=== PATIENT | male | born 1955 | race Caucasian/White ===

== ENCOUNTER 2017-03-13 18:49 | Emergency (ER) | payer OTHER ==
[~2017-03-13] VITALS: Ht 182.9 cm; Wt 100.6 kg
[2017-03-13 18:53] VITALS: TEMP 36.3; Ht 182.9 cm; Wt 100.6 kg
[2017-03-13] MEDS ORDERED: SODIUM CHLORIDE 0.9% 1000ML 1,000 ML IV STA (19:13)
[2017-03-13] MEDS ORDERED: ACETAMINOPHEN IV 100 ML IV STA (19:17)
[2017-03-13 19:31] VITALS: O2SAT 96
[2017-03-13 19:41] LABS: BASO % 0.2 %; BASO ABS # 0.02 K/uL (0-0.2); EOS % 0.9 %; EOS ABS # 0.11 K/uL (0-0.5); HEMATOCRIT 42.3 % (42-52); HEMOGLOBIN 14.1 g/dL (14.0-18.0); IG# 0.03 K/uL (0.00-0.02); LYMPH % 22.3 %; LYMPH ABS # 2.86 K/uL (1.2-3.4); MEAN CELL VOLUME 83.4 fL (80-100); MEAN CORPUSCULAR HEMOGLOBIN 27.8 pg (25-34); MEAN CORPUSCULAR HGB CONC 33.3 g/dl (32-36); MEAN PLATELET VOLUME 11.6 fL (7.4-10.4); MONO % 7.6 %; MONO ABS # 0.97 K/uL (0.11-0.59); NEUT % 68.8 %; NEUT ABS # 8.84 K/uL (1.4-6.5); PLATELET COUNT 202 K/uL (130-400); RED CELL DISTRIBUTION WIDTH CV 16.2 % (11.5-14.5); RED CELL DISTRIBUTION WIDTH SD 48.8 fL (36.4-46.3); WHITE BLOOD COUNT 12.83 K/uL (4.8-10.8)
[2017-03-13] MEDS ORDERED: OPTIRAY 320 IV PRN (19:45)
[2017-03-13 19:51] LABS: ISTAT CREATININE 0.9 mg/dl (0.6-1.3); ISTAT IONIZED CALCIUM 1.23 mmol/l (1.12-1.32); ISTAT POTASSIUM 3.8 mEq/L (3.3-5.0)
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
[2017-03-13 20:02] LABS: ALBUMIN 3.9 gm/dl (3.4-5.0); ALT/SGPT 27 U/L (12-78); BLOOD UREA NITROGEN 13 mg/dl (7-18); CALCIUM 9.3 mg/dl (8.5-10.1); CARBON DIOXIDE 24 mmol/L (21-32); CREATININE 0.83 mg/dl (0.60-1.40); GLUCOSE 102 mg/dl (70-99); POTASSIUM 3.8 mmol/L (3.5-5.1); SODIUM 140 mmol/L (136-145)
[2017-03-13 20:07] LABS: ALKALINE PHOSPHATASE 71 U/L (45-117); AST/SGOT 20 U/L (15-37); TOTAL PROTEIN 7.1 gm/dl (6.4-8.2)
--- NOTE | 2017-03-13 20:14 | DIAGNOSTIC IMAGING REPORT ---
HEAD WITHOUT CONTRAST (CT) CT DOSE: 1861.95 mGy.cm HISTORY: Trauma EVALUATE FOR TRAUMA/INJURY TECHNIQUE: Multiaxial CT images of the head were performed without the use of intravenous contrast. A dose lowering technique was utilized adhering to the principles of ALARA. Comparison: None. Findings: The paranasal sinuses and mastoid air cells are clear. The calvarium and skull base are intact. The ventricles and sulci are within normal limits. There is no mass, hematoma, midline shift, or acute infarct. Impression: No acute intracranial abnormality. The above report was generated using voice recognition software. It may contain grammatical, syntax or spelling errors. Electronically signed by: Marshall Greenwood M.D. 03/13/2017 8:13 PM Dictated Date/Time: 03/13/2017 8:12 PM
--- NOTE | 2017-03-13 20:17 | DIAGNOSTIC IMAGING REPORT ---
CERVICAL SPINE W/O CT DOSE: HISTORY: Trauma. Pain. EVALUATE FOR TRAUMA/INJURY TECHNIQUE: Multiaxial CT images of the cervical spine were performed and reformatted in the sagittal and coronal plane without the use of contrast. A dose lowering technique was utilized adhering to the principles of ALARA. COMPARISON: None. FINDINGS: No fractures. No subluxation. Prevertebral soft tissues and the C1-C2 interval are intact. No pneumothorax. Degenerative disc changes throughout considered moderate IMPRESSION: Degenerative change. No acute process. The above report was generated using voice recognition software. It may contain grammatical, syntax or spelling errors. Electronically signed by: Marshall Greenwood M.D. 03/13/2017 8:16 PM Dictated Date/Time: 03/13/2017 8:14 PM
--- NOTE | 2017-03-13 20:22 | DIAGNOSTIC IMAGING REPORT ---
(CHEST) THORAX WITH CT DOSE: HISTORY: Pain Trauma TECHNIQUE: Multiaxial CT images of the chest were performed following the intravenous administration of contrast. A dose lowering technique was utilized adhering to the principles of ALARA. COMPARISON: None. FINDINGS: The lungs are clear. The mediastinal vascular structures are within normal limits. No mediastinal or hilar lymphadenopathy. No pleural effusion or pneumothorax. Limited views of the upper abdomen demonstrate a normal liver and spleen. IMPRESSION: No significant abnormality identified within the chest. The above report was generated using voice recognition software. It may contain grammatical, syntax or spelling errors. Electronically signed by: Marshall Greenwood M.D. 03/13/2017 8:20 PM Dictated Date/Time: 03/13/2017 8:17 PM
[2017-03-13] MEDS ORDERED: ACET-1256 PO (20:25)
[2017-03-13] MEDS ORDERED: ASPI325T39 PO (20:25)
--- NOTE | 2017-03-13 20:44 | DIAGNOSTIC IMAGING REPORT ---
L CLAVICLE CLINICAL HISTORY: trauma pain COMPARISON: None. DISCUSSION: The bones and joint spaces appear intact. There is no evidence of fracture, dislocation or bony disease. There is no evidence for soft tissue swelling. IMPRESSION: Negative study. The above report was generated using voice recognition software. It may contain grammatical, syntax or spelling errors. Electronically signed by: Marshall Greenwood M.D. 03/13/2017 8:43 PM Dictated Date/Time: 03/13/2017 8:43 PM
--- NOTE | 2017-03-13 20:45 | DIAGNOSTIC IMAGING REPORT ---
L SHOULDER MIN 2 VIEWS ROUTINE CLINICAL HISTORY: trauma pain COMPARISON: None. DISCUSSION: The bones and joint spaces appear intact. There is no evidence of fracture, dislocation or bony disease. There is no evidence for soft tissue swelling. Mild degenerative change. IMPRESSION: No acute process. Mild degenerative change. The above report was generated using voice recognition software. It may contain grammatical, syntax or spelling errors. Electronically signed by: Marshall Greenwood M.D. 03/13/2017 8:44 PM Dictated Date/Time: 03/13/2017 8:43 PM
[2017-03-13 21:52] VITALS: BP 138/70; PULSE 82; O2SAT 98
== END 2017-03-13 21:53 | disposition home or self-care (01) ==
LOC: C.EDB 18:50 → C.EDD 21:53
DX: S40.012A Contusion of left shoulder, initial encounter (principal); S06.0X0A Concussion without loss of consciousness, initial encounter; V64.5XXA Driver of heavy transport vehicle injured in collision with heavy transport vehicle or bus in traffic accident, initial encounter; Y93.89 Activity, other specified; Y99.8 Other external cause status; R06.02 Shortness of breath; Z79.82 Long term (current) use of aspirin

== ENCOUNTER 2022-06-21 14:27 | Observation (INO) ==
--- NOTE | 2022-06-21 14:43 | ED Triage Note ---
Date of Service June 21, 2022 History of Present Illness This patient was briefly evaluated while in triage. An abbreviated physical exam was performed. This patient is a 67-year-old Male who presents to the ED for evaluation of abdominal pain. He notes it is in his "stomach" and back. Mostly L side of back and L side of abd region. This has been ongoing x 1 month. He has associated constipation. Bladder removed earlier this year secondary to cancer. Physical Exam GENERAL: 67 year old male. In no acute distress. SKIN: No lesions or rashes. HEART: Regular rate and rhythm. LUNGS: Clear to auscultation. ABDOMEN: Bowel sounds normoactive. No guarding or rigidity. PSYCH: Patient is pleasant and answers all questions appropriately. Initial orders for labs and / or imaging were placed and patient was placed in the waiting area until a bed is available. Please see further documentation for the full ED course.
[2022-06-21] MEDS ORDERED: SODIUM CHLORIDE 0.9% 1000ML 1,000 ML IV ONE (15:10)
[2022-06-21 15:35] LABS: Basophils # (auto) 0.03 K/uL (0-0.2); Basophils % (auto) 0.3 %; Eosinophils # (auto) 0.02 K/uL (0-0.50); Eosinophils % (auto) 0.2 %; Hematocrit (blood only) 27.1 % (42.0-52.0); Immature Granulocytes # (auto) 0.05 K/uL (0.01-0.20); Immature Granulocytes % (auto) 0.4 %; Mean Corpuscular Hemoglobin 26.9 pg (25.0-34.0); Mean Corpuscular Hgb Conc 33.2 g/dL (32.0-36.0); Mean Corpuscular Volume 81.1 fL (80.0-100.0); Mean Platelet Volume 10.4 fL (9.4-12.4); Monocytes # (auto) 1.39 K/uL (0.11-0.59); Monocytes % (auto) 12.2 %; Neutrophils # (auto) 8.31 K/uL (1.40-6.50); Neutrophils % (auto) 72.9 %; Platelet Count 250 K/uL (130-400); RDW Coefficient of Variation 14.6 % (11.5-14.5); RDW Standard Deviation 43.6 fL (36.4-46.3); Red Blood Count 3.34 M/uL (4.70-6.10)
[2022-06-21 15:53] LABS: Albumin Globulin Ratio 0.9 (0.9-2); Albumin Level 3.6 gm/dl (3.4-5.0); BUN Creatinine Ratio 8.8 (10-20); Bilirubin,Total 0.4 mg/dl (0.2-1.0); Calcium 9.8 mg/dl (8.6-10.3); Creatinine Clr Calc Pharmacy 38.5 ml/min; Est GFR (African American) 32.9 ml/min; Est GFR (Non-African American) 28.4 ml/min; Globulin 4.2 gm/dl (2.5-4.0); Potassium 3.8 mmol/L (3.5-5.1); Total Protein 7.8 gm/dl (6.0-8.3)
[2022-06-21 16:06] LABS: Partial Thromboplastin Ratio 1.1; Partial Thromboplastin Time 31.2 Seconds (21.0-31.0)
--- NOTE | 2022-06-21 16:49 | Emergency Department Note ---
Impression & Plan Abdominal pain, Reactive lymphadenopathy, Acute kidney injury ED Provider Note INFORMANT: Patient ED PROVIDER(S): Wilfred Tam DO CHIEF COMPLAINT: Abdominal pain PLAN: Disposition: Admission Outpatient prescription management: [none] Discussion with: I spoke with the hospitalist, who will see the patient for admission/observation and further evaluation and consultation. MEDICAL DECISION MAKING: This is a 67-year-old male who presents to the ED with a chief complaint of abdominal pain that radiates into his back. The patient states that he has had it for about a month. He states that it seems to be worse if he pushes on his belly that increases back pain. He had been initially using Tylenol and Motrin but that does not seem to be helping much anymore. The patient states that he does not move his bowels very well. He had bladder cancer with bladder removal in March at [facility]. He has a ureterostomy. Denies any nausea or vomiting. He reports a decreased appetite. He states oral intake increases pain. He has been using a stool softener. The patient has some left lower quadrant abdominal tenderness on my exam. His exam was otherwise unremarkable. CBC reveals hemoglobin of 9. No significant leukocytosis this is similar to her previous test this month but down from other months. His creatinine is elevated 2.28. This is new compared to earlier this month when it was 1.25. Lipase was negative for pancreatitis. CT scan suggest dilatation of the left ureter with urothelial thickening concerning for infectious process. There is also some retroperitoneal stranding extending into the left hemipelvis which is concerning for infection. Also multiple enlarged retroperitoneal lymph nodes which could be reactive or metastatic. Because the patient's symptoms, the patient will be seen by the hospitalist for further evaluation and care. He was empirically treated with IV Zosyn. He was also given some IV fluids. Triage Nursing notes reviewed. Vital Signs: reviewed Prior /Outside records reviewed: Urothelial carcinoma of the bladder noted in the general surgery note from 12/05/2021. Differential diagnosis: Differential considered: pancreatitis, hepatitis, acute cholecystitis, AAA, UTI, pyelonephritis, kidney stones, appendicitis, diverticulitis, shingles, bowel obstruction, mesenteric ischemia, intussusception,hernia, testicular torsion Diagnostics, as interpreted by me: 12 lead ECG: none Cardiac Monitoring ordered: none Medical decision rules: none Imaging studies: CT scan abdomen pelvis: No obstruction Procedures: none. Critical care: none. HPI: See MDM above. PAST MEDICAL HISTORY: See Below PAST SURGICAL HISTORY: See Below SOCIAL HISTORY: See Below HOME MEDICATIONS: See Below ALLERGIES: See Below VITALS: [See Below] PHYSICAL EXAMINATION: See MDM for positive findings otherwise unremarkable. CONSTITUTIONAL/VITAL SIGNS: Reviewed GENERAL:done as appropriate INTEGUMENTARY: done as appropriate HEAD: done as appropriate EYES: done as appropriate RESPIRATORY: done as appropriate CARDIOVASCULAR:done as appropriate GI/ABDOMEN:done as appropriate EXTREMITIES: done as appropriate NEUROLOGICAL: done as appropriate PSYCHIATRIC:done as appropriate MUSCULOSKELETAL:done as appropriate TRIAGE NURSING DOCUMENTATION REVIEWED. Past Med/Surg History Medical History Hx of bladder cancer 11/2021 Hypertension no meds Left lumbar radiculitis Lumbar spinal stenosis mod-severe worst at L2-3 with severe left NFS Surgical History History of ankle surgery "Left" History of arthroscopy of left shoulder History of shoulder surgery Right x1 Left x3 History of tooth extraction Hx of vasectomy Port-A-Cath in place (12/14/21) Insertion Access Port with Fluoroscopy(Not Applicable) - Keo Peck DO, FACS S/P TURP 11-01-21 Family History Sister Breast cancer Father Hypertension Grandmother Diabetes Aunt Stroke Social History Smoking Status: Never smoker Second Hand Exposure: No; Do You Dip or Chew Tobacco: Yes; Tobacco Cessation Education Requested by Patient: No Hx Alcohol Use: No Hx Substance Use: No Preferred Language: Kazakh Communication Ability: Effective Civil Structural Designer Required: No Beliefs That Will Affect Care: None marital status: / Current Living Situation: Alone current occupational status: retired Other Information That Helps Us Care for You: No Feels Safe at Home: Yes Safety Concerns: Feels Safe At This Time Assistive Devices: None Allergies Allergies Allergy/AdvReac Type Severity Reaction Status Date / Time No Known Allergies Allergy Verified 06/21/22 17:42 Home Meds Home Medications Medication Instructions Recorded Confirmed acetaminophen 500 mg tablet 1,000 mg PO QID PRN Pain 06/21/22 06/21/22 (Tylenol Extra Strength) aspirin 325 mg tablet 325 - 650 mg PO DAILY 06/21/22 06/21/22 cyanocobalamin (vitamin B-12) 1,000 mcg PO DAILY 06/21/22 06/21/22 1,000 mcg tablet (Vitamin B-12) docusate sodium 100 mg tablet 100 mg PO QID PRN Constipation 06/21/22 06/21/22 (Stool Softener) lisinopril 10 mg tablet 10 mg PO DAILY 06/21/22 06/21/22 Results & Data (ED) Vital Signs Vital Signs - 24 hr 06/21/22 14:39 06/21/22 15:23 06/21/22 15:19 Temperature 36.9 C Temperature Source Temporal Artery Scan Pulse Rate 113 H 96 H 91 H Pulse Rhythm Regular Pulse Strength Normal Respiratory Rate 20 22 Respiratory Effort / Characteristics Non-Labored Spontaneous Respiratory Depth Normal Respiratory Pattern Regular Blood Pressure 99/67 L Blood Pressure Mean 77 Blood Pressure Position Sitting Pulse Oximetry 99 98 Oxygen Delivery Method Room Air Sepsis Recent Fever Within 48 Hours No Sepsis New/Unexplained Change in Mental Status No Sepsis Action Taken by Nursing Adv Provider Notified 06/21/22 16:00 06/21/22 16:44 06/21/22 16:44 Temperature Temperature Source Pulse Rate 96 H 98 H Pulse Rhythm Pulse Strength Respiratory Rate 21 22 Respiratory Effort / Characteristics Respiratory Depth Respiratory Pattern Blood Pressure 100/60 Blood Pressure Mean 73 Blood Pressure Position Pulse Oximetry 97 94 Oxygen Delivery Method Sepsis Recent Fever Within 48 Hours Sepsis New/Unexplained Change in Mental Status Sepsis Action Taken by Nursing 06/21/22 19:18 Temperature Temperature Source Pulse Rate 91 H Pulse Rhythm Pulse Strength Respiratory Rate Respiratory Effort / Characteristics Respiratory Depth Respiratory Pattern Blood Pressure Blood Pressure Mean Blood Pressure Position Pulse Oximetry Oxygen Delivery Method Sepsis Recent Fever Within 48 Hours Sepsis New/Unexplained Change in Mental Status Sepsis Action Taken by Nursing Laboratory Data 06/21/22 15:16 06/21/22 15:16 Lab Results 06/21/22 06/21/22 06/21/22 Range/Units 15:16 15:16 15:16 WBC 11.40 H (4.8-10.8) K/ul RBC 3.34 L (4.70-6.10) M/uL Hgb 9.0 L (14.0-18.0) g/dl Hct 27.1 L (42.0-52.0) % MCV 81.1 (80.0-100.0) fL MCH 26.9 (25.0-34.0) pg MCHC 33.2 (32.0-36.0) g/dL RDW Std Deviation 43.6 (36.4-46.3) fL RDW Coeff of Reina 14.6 H (11.5-14.5) % Plt Count 250 (130-400) K/uL MPV 10.4 (9.4-12.4) fL Immature Gran % (Auto) 0.4 % Neut % (Auto) 72.9 % Lymph % (Auto) 14.0 % [place] % (Auto) 12.2 % Eos % (Auto) 0.2 % Baso % (Auto) 0.3 % Neut # (Auto) 8.31 H (1.40-6.50) K/uL Lymph # (Auto) 1.60 (1.2-3.4) K/uL [place] # (Auto) 1.39 H (0.11-0.59) K/uL Eos # (Auto) 0.02 (0-0.50) K/uL Baso # (Auto) 0.03 (0-0.2) K/uL Immature Gran # (Auto) 0.05 (0.01-0.20) K/uL PT 11.0 (9.0-12.0) Seconds INR 1.0 (0.9-1.1) APTT 31.2 H (21.0-31.0) Seconds PTT Ratio 1.1 Sodium 131 L (136-145) mmol/L Potassium 3.8 (3.5-5.1) mmol/L Chloride 99 (98-107) mmol/L Carbon Dioxide 19 L (21-32) mmol/L Anion Gap 13 H (3-11) BUN 20 (6-23) mg/dl Creatinine 2.28 H (0.6-1.4) mg/dl Est Cr Clr Drug Dosing 38.5 ml/min Est GFR ( Amer) 32.9 ml/min Est GFR (Non-Af Amer) 28.4 ml/min BUN/Creatinine Ratio 8.8 L (10-20) Glucose 100 H (70-99(Fasting)) mg/dl Lactate (0.4-2.0) mmol/L Calcium 9.8 (8.6-10.3) mg/dl Total Bilirubin 0.4 (0.2-1.0) mg/dl AST 21 (13-39) U/L ALT 16 (7-52) U/L Alkaline Phosphatase 84 (34-104) U/L Total Protein 7.8 (6.0-8.3) gm/dl Albumin 3.6 (3.4-5.0) gm/dl Globulin 4.2 H (2.5-4.0) gm/dl Albumin/Globulin Ratio 0.9 (0.9-2) Lipase 21 (11-82) U/L Procalcitonin (0-0.5) ng/ml 06/21/22 06/21/22 Range/Units 15:16 15:16 WBC (4.8-10.8) K/ul RBC (4.70-6.10) M/uL Hgb (14.0-18.0) g/dl Hct (42.0-52.0) % MCV (80.0-100.0) fL MCH (25.0-34.0) pg MCHC (32.0-36.0) g/dL RDW Std Deviation (36.4-46.3) fL RDW Coeff of Reina (11.5-14.5) % Plt Count (130-400) K/uL MPV (9.4-12.4) fL Immature Gran % (Auto) % Neut % (Auto) % Lymph % (Auto) % [place] % (Auto) % Eos % (Auto) % Baso % (Auto) % Neut # (Auto) (1.40-6.50) K/uL Lymph # (Auto) (1.2-3.4) K/uL [place] # (Auto) (0.11-0.59) K/uL Eos # (Auto) (0-0.50) K/uL Baso # (Auto) (0-0.2) K/uL Immature Gran # (Auto) (0.01-0.20) K/uL PT (9.0-12.0) Seconds INR (0.9-1.1) APTT (21.0-31.0) Seconds PTT Ratio Sodium (136-145) mmol/L Potassium (3.5-5.1) mmol/L Chloride (98-107) mmol/L Carbon Dioxide (21-32) mmol/L Anion Gap (3-11) BUN (6-23) mg/dl Creatinine (0.6-1.4) mg/dl Est Cr Clr Drug Dosing ml/min Est GFR ( Amer) ml/min Est GFR (Non-Af Amer) ml/min BUN/Creatinine Ratio (10-20) Glucose (70-99(Fasting)) mg/dl Lactate 1.8 (0.4-2.0) mmol/L Calcium (8.6-10.3) mg/dl Total Bilirubin (0.2-1.0) mg/dl AST (13-39) U/L ALT (7-52) U/L Alkaline Phosphatase (34-104) U/L Total Protein (6.0-8.3) gm/dl Albumin (3.4-5.0) gm/dl Globulin (2.5-4.0) gm/dl Albumin/Globulin Ratio (0.9-2) Lipase (11-82) U/L Procalcitonin 0.33 (0-0.5) ng/ml Administered Medications Acetaminophen (Acetaminophen 325 Mg Tab) 650 mg PO Q4H PRN PRN Reason: Pain or Fever Stop: 07/21/22 21:49 Last Admin: 06/21/22 22:40 Dose: 650 mg Documented By: VIVIANA Docusate Sodium (Docusate Sodium 100 Mg Cap) 100 mg PO QID PRN PRN Reason: Constipation Stop: 07/21/22 22:08 Last Admin: 06/21/22 22:40 Dose: 100 mg Documented By: VIVIANA Potassium Chloride/Sodium Chloride (Normal Saline W/20 Meq Kcl) 20 meq in 1,000 mls @ 120 mls/hr IV .Q8H20M CELSO Stop: 06/22/22 06:49 Last Admin: 06/21/22 22:40 Dose: 120 mls/hr Documented By: VIVIANA Piperacillin Sod/Tazobactam (Sod 4.5 gm/ Dextrose) 120 mls @ 30 mls/hr IV Q8H CELSO; Protocol Stop: 07/02/22 00:00 Last Admin: 06/21/22 22:40 Dose: 30 mls/hr Documented By: HFS Discontinued Medications Sodium Chloride (Nss 1000ml) 1,000 mls @ 999 mls/hr IV .Q1H1M ONE Stop: 06/21/22 16:10 Last Infusion: 06/21/22 16:11 Dose: 0 mls/hr Documented By: Admin: 06/21/22 15:16 Dose: 999 mls/hr Documented By: ARS Piperacillin Sod/Tazobactam Sod (Zosyn) 4.5 gm in 120 mls @ 240 mls/hr IV NOW ONE Stop: 06/21/22 18:55 Last Infusion: 06/21/22 19:05 Dose: 0 mls/hr Documented By: Admin: 06/21/22 18:38 Dose: 240 mls/hr Documented By: ARS Imaging Data Radiologist's Impression: Abdomen/Pelvis CT 06/21/22 16:22 CT OF THE ABDOMEN AND PELVIS WITHOUT CONTRAST CLINICAL HISTORY: Left lower quadrant abdominal pain. COMPARISON STUDY: CT of the abdomen and pelvis October 20, 2021. TECHNIQUE: Axial images of the abdomen and pelvis were obtained without IV contrast. Images were reviewed in the axial, sagittal, and coronal planes. Automated exposure control was utilized for the study. A dose lowering technique was utilized adhering to the principles of ALARA. FINDINGS: Lung bases are unremarkable. No pneumatosis, free air or portal venous gas is present. Evaluation of the abdomen and pelvis is suboptimal. There are postoperative findings consistent with interval cystectomy with right lower quadrant urostomy and lymph node dissection. Right hydronephrosis has resolved. There is mild dilatation of the left ureter with significant urothelial thickening of the left ureter. There is moderate adjacent retroperitoneal stranding that extends into the left hemipelvis. A few small pelvic fluid collections measure up to 2.1 cm. These may reflect lymphoceles. There are several enlarged retroperitoneal lymph nodes. Left para-aortic lymph node on image 201 of 511 measures 2 x 1.5 cm. Additional left para-aortic lymph node on axial image 246 measures 2.3 x 1.5 cm. There is no evidence for a bowel obstruct ion. No evidence for acute appendicitis. Unenhanced images of the liver, spleen, adrenal glands and pancreas are unremarkable. There is no biliary or pancreatic ductal dilatation. There are no suspicious osseous lesions. No bowel wall thickening is evident on unenhanced exam. IMPRESSION: 1. Interval cystectomy with right lower quadrant urostomy. Mild dilatation of the left ureter with urothelial thickening of the left ureter. This favors an i nfectious process. Moderate adjacent retroperitoneal stranding extending into the left hemipelvis. This retroperitoneal stranding is nonspecific but likely infectious. No drainable fluid collection. 2. Multiple enlarged retroperitoneal lymph nodes, as described above. These may be reactive given the suspected infectious process. However, metastatic lymphadenopathy could appear similar. Therefore, short-term follow-up CT in one month is recommended to ensure resolution. 3. No bowel obstruction. No bowel wall thickening. 4. No urinary calculi. ACT 112: Positive. There are findings on this exam that require communication between the performing entity and the patient following Patient Test Result Information Act ([place] Act 112) guidelines. Electronically signed by: Aubrey Pavon M.D. 06/21/2022 5:07 PM Discharge Plan Visit Data Chief Complaint: Abdominal Pain Stated Complaint: REF BY DOC,ABD/BACK PAIN,HX BLADDER CANCER/SURGERY ED Provider: Wilfred Tam Discharge Problem: Abdominal pain, Reactive lymphadenopathy, Acute kidney injury Patient Disposition: Admitted As Inpatient
--- NOTE | 2022-06-21 17:09 | CT Scan Report ---
CT OF THE ABDOMEN AND PELVIS WITHOUT CONTRAST CLINICAL HISTORY: Left lower quadrant abdominal pain. COMPARISON STUDY: CT of the abdomen and pelvis October 20, 2021. TECHNIQUE: Axial images of the abdomen and pelvis were obtained without IV contrast. Images were revi ewed in the axial, sagittal, and coronal planes. Automated exposure control was utilized for the vishal dy. A dose lowering technique was utilized adhering to the principles of ALARA. FINDINGS: Lung bases are unremarkable. No pneumatosis, free air or portal venous gas is present. Eval uation of the abdomen and pelvis is suboptimal. There are postoperative findings consistent with inte rval cystectomy with right lower quadrant urostomy and lymph node dissection. Right hydronephrosis obrien s resolved. There is mild dilatation of the left ureter with significant urothelial thickening of the left ureter. There is moderate adjacent retroperitoneal stranding that extends into the left hemipel vis. A few small pelvic fluid collections measure up to 2.1 cm. These may reflect lymphoceles. There are several enlarged retroperitoneal lymph nodes. Left para-aortic lymph node on image 201 of 511 airam sures 2 x 1.5 cm. Additional left para-aortic lymph node on axial image 246 measures 2.3 x 1.5 cm. Th ere is no evidence for a bowel obstruction. No evidence for acute appendicitis. Unenhanced images of the liver, spleen, adrenal glands and pancreas are unremarkable. There is no biliary or pancreatic du ctal dilatation. There are no suspicious osseous lesions. No bowel wall thickening is evident on unen hanced exam. IMPRESSION: 1. Interval cystectomy with right lower quadrant urostomy. Mild dilatation of the left ureter with ur othelial thickening of the left ureter. This favors an infectious process. Moderate adjacent retroper itoneal stranding extending into the left hemipelvis. This retroperitoneal stranding is nonspecific but likely infectious. No drainable fluid collection. 2. Multiple enlarged retroperitoneal lymph nodes, as described above. These may be reactive given the suspected infectious process. However, metastatic lymphadenopathy could appear similar. Therefore, s hort-term follow-up CT in one month is recommended to ensure resolution. 3. No bowel obstruction. No bowel wall thickening. 4. No urinary calculi. ACT 112: Positive. There are findings on this exam that require communication between the performing entity and the patient following Patient Test Result Information Act ([place] Act 112) guidelines. Electronically signed by: Aubrey Pavon M.D. 06/21/2022 5:07 PM
[2022-06-21] MEDS ORDERED: PIPERACILLIN/TAZOBACTAM 4.5 GM/120 ML BAG IV ONE (18:26)
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
--- NOTE | 2022-06-21 20:51 | Ultrasound Report ---
RIGHT LOWER EXTREMITY VENOUS DOPPLER CLINICAL HISTORY: hx RLE dvt, stopped anticoag after 6 weeks. COMPARISON STUDY: None available at time of interpretation. TECHNIQUE: Sonography of the deep venous system of the right lower extremity was performed. Compress ion and augmentation were evaluated. FINDINGS: The right common femoral, superficial femoral and popliteal veins were compressible. Note is made of nonocclusive deep venous thrombus within one of 2 paired right posterior tibial veins. IMPRESSION: Nonocclusive deep venous thrombus within one of 2 paired right posterior tibial veins. No above the knee thrombus. ACT 112: Negative or not required by law. Electronically signed by: Aubrey Pavon M.D. 06/21/2022 8:49 PM
[2022-06-21] MEDS ORDERED: Heparin IV Adult Wt-Based Standard *NO* Bolus Protocol IV SCH (21:58)
[2022-06-21] MEDS ORDERED: HEPARIN SOD 5,000 UNIT/0.5 ML VIAL SQ SCH (22:00)
[2022-06-21] MEDS ORDERED: NSS + 20MEQ KCL 20 MEQ/1,000 ML BAG IV SCH (22:30)
[2022-06-21] MEDS: PIPERACILLIN/TAZOBACTAM 4.5 GM in DEXTROSE 5% 100 ML IV SCH (22:40)
[2022-06-21] MEDS: DOCUSATE SODIUM 100 MG CAP PO PRN (22:40)
[2022-06-21] MEDS: ACETAMINOPHEN 325 MG TAB PO PRN (22:40)
[2022-06-21] MEDS ORDERED: GADOBUTROL 65ML VIAL IV ONE (22:48)
[2022-06-22] MEDS: HEPARIN SODIUM/DEXTROSE 25,000 UNITS/500 ML BAG IV SCH ×2 (00:05→14:34)
[2022-06-22] MEDS ORDERED: traMADol HCL 50 MG TABLET PO STA (00:25)
--- NOTE | 2022-06-22 00:52 | Magnetic Resonance Report ---
Exam(s): MRI L SPINE Without Contrast EXAM: MR Lumbar Spine Without Intravenous Contrast CLINICAL HISTORY: Reason for exam: Low back pain, ?L proximal weakness. TECHNIQUE: Magnetic resonance images of the lumbar spine without intravenous contrast in multiple planes. COMPARISON: Comparison made to prior MRI of the lumbar spine from March 23, 2017. FINDINGS: Vertebrae: There are 5 lumbar type vertebral bodies with a moderate dextroscoliosis and normal lumbar lordosis. There is normal vertebral body height and alignment. The bone marrow signal is heterogeneous with areas of focal fat or venous malformations. No acute fracture. There is narrowing of the entire lumbar spinal canal secondary to congenitally short pedicles. There is abnormal articulation of the right L5 transverse process and the sacrum forming a pseudoarthrosis with reactive bone changes. Spinal cord: The conus is normal size, shape and signal characteristics, terminating at T11-12. Soft tissues: Moderate atrophy of the iliopsoas, paraspinous interspinous musculature. The aorta and IVC flow voids are intact. The visualized kidneys are unremarkable. There is increased T2/STIR signal within the interspinous process at L1-2 through L5-S1. DISCS/SPINAL CANAL/NEURAL FORAMINA: L1-L2: Mild disc degeneration with annular disc bulge asymmetric to the right causing mild subarticular recess stenosis, or disc extending into the neural foramina without evidence of impingement or significant stenosis. There is mild facet arthropathy with mild synovitis. L2-L3: Moderate disc degeneration with loss of disc height, reactive endplate change, marginal osteophytosis and annular disc bulge asymmetric to the left causing a mild subarticular recess stenosis, with superimposed congenital short pedicles causing a mild spinal canal stenosis with thecal sac measuring 0.83 cm. There is disc and osteophyte extending to the neural foramina causing mild bilateral stenosis without evidence of neural impingement. There is mild joint arthropathy with mild synovitis. L3-L4: Moderate disc degeneration with loss of disc height, reactive endplate changes, marginal osteophytosis and annular disc bulge causing mild subarticular recess stenosis, with superimposed congenitally short pedicles causing a moderately severe spinal canal stenosis with thecal sac area measuring 0.65 cm. There is disc extending into the neuroforamina causing a mild right and moderate left stenosis with mild impingement of the left L3 nerve or tingling. There is mild facet arthropathy with mild synovitis. L4-L5: Moderate disc degeneration with loss of disc height, reactive endplate changes, marginal osteophytosis and a disc bulge asymmetric to the right causing mild subarticular recess stenosis, superimposed congenitally short pedicles causing a severe spinal canal stenosis with thecal sac measuring 0.42 cm. There is disc and osteophyte extend into the neuroforamina causing a mild right stenosis without evidence of neural impingement. There is mild facet arthropathy with mild synovitis. L5-S1: Moderate disc degeneration with loss of disc height, reactive endplate changes, marginal osteophytosis and in their disc bulge causing a mild subarticular recess stenosis, with disc and osteophyte extend to the neuroforamina causing a moderately severe right and moderate left stenosis with impingement of the L5 nerve root ganglia. There is mild facet arthropathy with mild synovitis. IMPRESSION: 1. Moderate disc degeneration at L2-3, L3-4, L4-5 and L5-S1 with mild disc degeneration at L1-2 with annular disc bulging causing a mild subarticular recess stenosis without evidence of neural impingement. 2. There is a severe spinal canal stenosis at L4-5, moderately severe stenosis at L3-4 and mild stenosis at L2-3 with a congenitally narrow spinal canal. 3. There is mild bilateral L2-3, mild right and moderate left L3-4, mild right L4-5, and moderately severe right and moderate left L5-S1 neuroforaminal stenosis with impingement of the left L3 and bilateral L5 nerve root ganglia. 4. There is mild facet arthropathy with mild synovitis. 5. Intraspinous bursitis at L1-2 through L5-S1. 6. 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 7. No evidence of fracture, infection, tumor or arachnoiditis. Electronically signed by: Lela Lopez MD 06/22/22 00:51 AM
[2022-06-22] MEDS: ACETAMINOPHEN 325 MG TAB PO PRN ×3 (04:42→20:01)
[2022-06-22 05:24] LABS: Appearance Urine Clear (Clear); Bacteria Urine Automated Negative (Negative); Bilirubin Urine Negative (Negative); Blood Urine Trace (Negative); Color Urine Yellow; Epithelial Cell Urine Auto >30 /lpf (0-5); Glucose Urine UA Negative (Negative); Ketones Urine Negative (Negative); Leukocyte Esterase Urine 1+ (Negative); Nitrite Urine Negative (Negative); Protein Urine 1+ (Negative); Specific Gravity Urine 1.006 (1.000-1.030); Urobilinogen Urine Negative (Negative)
[2022-06-22 06:40] LABS: Basophils # (auto) 0.04 K/uL (0-0.2); Basophils % (auto) 0.5 %; Eosinophils # (auto) 0.04 K/uL (0-0.50); Eosinophils % (auto) 0.5 %; Hematocrit (blood only) 23.6 % (42.0-52.0); Hemoglobin 7.7 g/dl (14.0-18.0); Immature Granulocytes # (auto) 0.04 K/uL (0.01-0.20); Immature Granulocytes % (auto) 0.5 %; Lymphocytes % (auto) 11.9 %; Mean Corpuscular Hemoglobin 26.8 pg (25.0-34.0); Mean Corpuscular Hgb Conc 32.6 g/dL (32.0-36.0); Mean Corpuscular Volume 82.2 fL (80.0-100.0); Mean Platelet Volume 10.5 fL (9.4-12.4); Monocytes # (auto) 1.14 K/uL (0.11-0.59); Monocytes % (auto) 13.6 %; Neutrophils # (auto) 6.13 K/uL (1.40-6.50); Platelet Count 188 K/uL (130-400); RDW Coefficient of Variation 14.6 % (11.5-14.5); RDW Standard Deviation 44.2 fL (36.4-46.3); Red Blood Count 2.87 M/uL (4.70-6.10); White Blood Count 8.39 K/ul (4.8-10.8)
[2022-06-22 06:46] LABS: BUN Creatinine Ratio 11.7 (10-20); Creatinine Clr Calc Pharmacy 45.8 ml/min; Est GFR (African American) 41.6 ml/min; Est GFR (Non-African American) 35.9 ml/min
[2022-06-22 06:54] LABS: Partial Thromboplastin Ratio 1.1; Partial Thromboplastin Time 31.3 Seconds (21.0-31.0)
[2022-06-22 07:02] LABS: RBC Morphology Unremarkable
[2022-06-22] MEDS ORDERED: HEPARIN SOD (PORCINE) 1000 UNIT/ML IV ONE (07:15)
[2022-06-22] MEDS: PIPERACILLIN/TAZOBACTAM 4.5 GM in DEXTROSE 5% 100 ML IV SCH ×2 (07:39→16:18)
[2022-06-22] MEDS: CYANOCOBALAMIN (B-12) 500 MCG TABLET PO SCH (07:42)
[2022-06-22] MEDS: HYDROCODONE/ACETAMINOPHEN 7.5/325MG TAB PO PRN (12:12)
[2022-06-22 13:39] LABS: Partial Thromboplastin Ratio 1.3; Partial Thromboplastin Time 35.4 Seconds (21.0-31.0)
[2022-06-22] MEDS: GABAPENTIN 100 MG CAP PO SCH ×2 (13:44→20:01)
[2022-06-22] MEDS ORDERED: HEPARIN IV BOLUS 3,000 UNITS in SYRINGE 0 ML IV ONE (14:45)
[2022-06-22] MEDS ORDERED: BACLOFEN 10 MG TAB PO PRN (15:38)
[2022-06-22] MEDS ORDERED: PANTOprazole 40 MG TAB PO STA (15:41)
--- NOTE | 2022-06-22 15:42 | Hospitalist Progress Note ---
Date of Service June 22, 2022 Assessment & Plan (1) UTI (urinary tract infection): Plan: suspected follow blood/urine cx's cont IV abx (2) KEV (acute kidney injury): Plan: 2nd to poor oral intake prior to admission he had also been taking copious amounts of motrin KEV improved overnight with IV fluids but not yet back to normal resume IV fluids repeat BMP am (3) Lumbar spinal stenosis: Plan: severe based on MRI lumbar spine he has had previous epidural steroid injections and had radiofrequency ablation by Dr Bruce, pain management, in 2019 he has stenosis at multiple levels but worst at L4-L5 he appears to have nerve impingement on the exiting left L3 nerve root, and b/l L5 nerve roots I suspect his current lumbar radiculopathy is from the left L3 nerve impingement start dexamethasone 4mg IV BID start gabapentin 100mg TID start dilaudid 0.25mg IV q6h prn for pain not relieved by norco baclofen prn obtained left hip x-rays to ensure intrinsic hip disease is not contributing to his pain will likely consult with Dr Parson, ortho-spine (4) Hypertension: Plan: lisinopril on hold due to KEV BPs acceptable without it cont to hold trend BPs (5) History of DVT (deep vein thrombosis): Plan: initial dx 03/2022 at [facility] by report took Eliquis for 4-6 weeks then he discontinued it due to cost RLE doppler here at [facility] - :Nonocclusive deep venous thrombus within one of 2 paired right posterior tibial veins. No above the knee thrombus." given recent surgery, bladder cancer, incomplete Rx of the above DVT, and now poor mobility due to his severe lumbar spine pain he is at risk of recurrent DVT and extension/propagation thus, continue heparin infusion start coumadin 5mg daily (6) Lumbar radicular pain: Plan: see above under "stenosis" (7) Constipation: Plan: severe abd x-rays obtained - mild ileus noted add miralax BID add senna (8) Hx of bladder cancer: Plan: s/p cystectomy at [facility] 03/2022 now with urostomy (9) Right leg DVT: Plan: see #5 above (10) 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 await urine cx see #1 above Plan add PPI in the event he has mild gastritis from recent motrin use (which was being taken for his back) daughter extensively updated at bedside labs in am Admission and Anticipated Discharge Date Admission Date: June 21, 2022 Subjective patient details the history of his back states that he had radiofrequency ablation of several lumbar nerves a few years ago by [facility] Pain management did have significant pain relief with such of his radicular back pain about 6 weeks he developed insidious back pain - lower left back gradually worsened and then he ultimately developed radicular pain of the left leg pain wraps around from the left low back to the anterior thigh the pain - which is a throbbing, severe, shooting pain - radiates from the lateral proximal thigh to the medial distal thigh the pain does not travel below the knee he has a hard time picking up the right hip due to this pain denies right leg pain he also complains of severe constipation yesterday had "rock hard" BM yesterday with straining has been present like this for some time patient reports that he had stopped his Eliquis for his RLE DVT at about the 6 week sarabjit because of cost it would have cost him "hundreds of dollars" he does not have prescription coverage with his insurance overnight - tele wnl Review of Systems Review of Systems: gen - no fevers; eating ok cv - no chest pain pulm - no dyspnea GI - lower abdominal discomfort, hurts with eating at times; he often will not eat much because of his abdominal pain; no nausea/emesis - urostomy draining copious urine Physical Exam Physical Exam: gen - NAD, a little agitated at times, but awake/alert mouth - MMM neck - no JVD heart - RRR, s1 s2, no murmur lungs - CTA b/l abd - soft NT ND BS+; urostomy bag in place with slightly concentrated yellow urine back - no tenderness to palpation along c-spine or t-spine; he has pain over the SI joint on left to palpation ext - no edema, pulses 2+ b/l neuro - negative straight leg raise test b/l; left hip flexion 4/5; right hip flexion 5/5; right ankle dorsiflexion/plantarflexion 5/5; left ankle strength 5/5; right knee extension 5/5; left knee extension 4-5/5; sensation intact to light touch all dermatomes of b/l legs musculo - left hip with full passive ROM without any pain Results & Data Results & Data Vital Signs (Past 12 Hours) Vital Signs Temp Pulse Pulse Resp BP Pulse Ox O2 Del Method 06/22/22 11:18 36.8 C 92 H 19 122/75 97 Room Air 06/22/22 08:09 Room Air 06/22/22 07:31 36.7 C 83 18 102/62 96 Room Air 06/22/22 07:23 84 Laboratory Results Laboratory Results - last 24 hr 06/22/22 06/22/22 06/22/22 06:09 06:09 06:09 WBC 8.39 RBC 2.87 L Hgb 7.7 L Hct 23.6 L MCV 82.2 MCH 26.8 MCHC 32.6 RDW Std Deviation 44.2 RDW Coeff of Reina 14.6 H Plt Count 188 MPV 10.5 Immature Gran % (Auto) 0.5 Neut % (Auto) 73.0 Lymph % (Auto) 11.9 Graham % (Auto) 13.6 Eos % (Auto) 0.5 Baso % (Auto) 0.5 Neut # (Auto) 6.13 Lymph # (Auto) 1.00 L Graham # (Auto) 1.14 H Eos # (Auto) 0.04 Baso # (Auto) 0.04 Immature Gran # (Auto) 0.04 RBC Morphology Unremarkable APTT 31.3 H PTT Ratio 1.1 Sodium 135 L Potassium 4.0 Chloride 106 Carbon Dioxide 20 L Anion Gap 9 BUN 22 Creatinine 1.88 H D Est Cr Clr Drug Dosing 45.8 Est GFR ( Amer) 41.6 Est GFR (Non-Af Amer) 35.9 BUN/Creatinine Ratio 11.7 Glucose 112 H Calcium 9.0 06/22/22 06/22/22 12:57 19:48 WBC RBC Hgb Hct MCV MCH MCHC RDW Std Deviation RDW Coeff of Reina Plt Count MPV Immature Gran % (Auto) Neut % (Auto) Lymph % (Auto) Graham % (Auto) Eos % (Auto) Baso % (Auto) Neut # (Auto) Lymph # (Auto) Graham # (Auto) Eos # (Auto) Baso # (Auto) Immature Gran # (Auto) RBC Morphology APTT 35.4 H 52.4 H* PTT Ratio 1.3 1.9 Sodium Potassium Chloride Carbon Dioxide Anion Gap BUN Creatinine Est Cr Clr Drug Dosing Est GFR ( Amer) Est GFR (Non-Af Amer) BUN/Creatinine Ratio Glucose Calcium Diagnostic Findings Hip/Pelvis X-Ray 06/22/22 15:38 XR hip LT 2V w pelvis CLINICAL HISTORY: back pain/L leg pain; eval L hip for OA COMPARISON STUDY: Abdomen and pelvis CT 06/21/2022. FINDINGS: There are surgical clips within the pelvis consistent with a prior cystectomy. No fracture or dislocation within the pelvis or hips. There is mild osteoarthritis within the bilateral hips. IMPRESSION: No fracture or dislocation within the pelvis or hips. ACT 112: Negative or not required by law. Electronically signed by: Joshua Marcus M.D. 06/22/2022 4:31 PM KUB X-Ray 06/22/22 15:38 KUB HISTORY: constipation, generalized abdominal pain COMPARISON: Abdomen and pelvis CT 06/21/2022. FINDINGS: Mildly dilated gas-filled loops of large and small bowel seen throughout the abdomen. There is gas within the rectum. This favors a mild ileus. Surgical clips noted within the deep pelvis consistent with prior cystectomy. The lung bases are clear. Old, healed bilateral rib fractures are noted. No renal calculi. No ureteral calculi. No pneumoperitoneum or pneumatosis. IMPRESSION: Mildly dilated gas-filled loops of large and small bowel seen throughout the abdomen. This favors a mild ileus. ACT 112: Negative or not required by law. Electronically signed by: Joshua Marcus M.D. 06/22/2022 4:30 PM PG Care Time/CCT Total # of Minutes Spent Total Time Spent with Patient: Total time spent is greater than 50% in coordination of care (as documented) at patient's floor/unit and/or counseling patient: Coding Level of Care Code 15035 SUB INP/OBS CARE 3/50MIN Diagnoses UTI (urinary tract infection) N39.0 KEV (acute kidney injury) N17.9 Lumbar spinal stenosis M48.061 Hypertension I10 History of DVT (deep vein thrombosis) Z86.718 Lumbar radicular pain M54.16 Constipation K59.00 Hx of bladder cancer Z85.51 Right leg DVT I82.401 Status of other artificial opening of urinary tract Z93.6
[2022-06-22] MEDS: SENNA 8.6 MG TAB PO SCH (16:17)
[2022-06-22] MEDS: dexAMETHasone 4 MG in SYRINGE 0 ML IV SCH ×2 (16:17→20:02)
[2022-06-22] MEDS: NSS + 20MEQ KCL 20 MEQ/1,000 ML BAG IV SCH (16:18)
--- NOTE | 2022-06-22 16:32 | XRay Report ---
KUB HISTORY: constipation, generalized abdominal pain COMPARISON: Abdomen and pelvis CT 06/21/2022. FINDINGS: Mildly dilated gas-filled loops of large and small bowel seen throughout the abdomen. There is gas within the rectum. This favors a mild ileus. Surgical clips noted within the deep pelvis cons istent with prior cystectomy. The lung bases are clear. Old, healed bilateral rib fractures are noted . No renal calculi. No ureteral calculi. No pneumoperitoneum or pneumatosis. IMPRESSION: Mildly dilated gas-filled loops of large and small bowel seen throughout the abdomen. This favors a m ild ileus. ACT 112: Negative or not required by law. Electronically signed by: Joshua Marcus M.D. 06/22/2022 4:30 PM
--- NOTE | 2022-06-22 16:33 | XRay Report ---
XR hip LT 2V w pelvis CLINICAL HISTORY: back pain/L leg pain; eval L hip for OA COMPARISON STUDY: Abdomen and pelvis CT 06/21/2022. FINDINGS: There are surgical clips within the pelvis consistent with a prior cystectomy. No fracture or dislocation within the pelvis or hips. There is mild osteoarthritis within the bilateral hips. IMPRESSION: No fracture or dislocation within the pelvis or hips. ACT 112: Negative or not required by law. Electronically signed by: Joshua Marcus M.D. 06/22/2022 4:31 PM
[2022-06-22] MEDS ORDERED: WARFARIN SOD 5 MG TAB PO ONE (17:45)
[2022-06-22] MEDS: HYDROmorphone INJ 0.5 MG/0.5 ML SYR IV PRN (18:14)
[2022-06-22] MEDS: DOCUSATE SODIUM 100 MG CAP PO PRN (20:01)
[2022-06-22] MEDS: POLYETHYLENE (MIRALAX) 17 GM PACK PO SCH (20:02)
[2022-06-22 20:38] LABS: Partial Thromboplastin Ratio 1.9
[2022-06-22 20:57] LABS: Partial Thromboplastin Time 52.4 Seconds (21.0-31.0)
[2022-06-23] MEDS: PIPERACILLIN/TAZOBACTAM 4.5 GM in DEXTROSE 5% 100 ML IV SCH ×3 (00:57→15:33)
[2022-06-23] MEDS: HEPARIN SODIUM/DEXTROSE 25,000 UNITS/500 ML BAG IV SCH ×2 (05:11→19:32)
[2022-06-23 07:51] LABS: Hematocrit (blood only) 25.1 % (42.0-52.0); Hemoglobin 8.1 g/dl (14.0-18.0); Mean Corpuscular Hemoglobin 26.8 pg (25.0-34.0); Mean Corpuscular Hgb Conc 32.3 g/dL (32.0-36.0); Mean Corpuscular Volume 83.1 fL (80.0-100.0); Mean Platelet Volume 10.9 fL (9.4-12.4); Platelet Count 227 K/uL (130-400); RDW Coefficient of Variation 14.6 % (11.5-14.5); RDW Standard Deviation 44.4 fL (36.4-46.3); Red Blood Count 3.02 M/uL (4.70-6.10); White Blood Count 7.83 K/ul (4.8-10.8)
[2022-06-23] MEDS: SENNA 8.6 MG TAB PO SCH (07:56)
[2022-06-23] MEDS: GABAPENTIN 100 MG CAP PO SCH ×3 (07:56→20:26)
[2022-06-23] MEDS: POLYETHYLENE (MIRALAX) 17 GM PACK PO SCH ×2 (07:56→20:26)
[2022-06-23] MEDS: CYANOCOBALAMIN (B-12) 500 MCG TABLET PO SCH (07:56)
[2022-06-23] MEDS: dexAMETHasone 4 MG in SYRINGE 0 ML IV SCH ×2 (07:56→20:27)
[2022-06-23] MEDS: HYDROCODONE/ACETAMINOPHEN 7.5/325MG TAB PO PRN ×2 (08:02→13:54)
[2022-06-23 08:04] LABS: Calcium 9.7 mg/dl (8.6-10.3); Creatinine Clr Calc Pharmacy 55.2 ml/min; Est GFR (African American) 52.1 ml/min; Potassium 4.7 mmol/L (3.5-5.1)
[2022-06-23 08:33] LABS: Partial Thromboplastin Ratio 1.9; Prothrombin Time 10.9 Seconds (9.0-12.0)
[2022-06-23 09:10] LABS: Partial Thromboplastin Time 53.4 Seconds (21.0-31.0)
[2022-06-23] MEDS: HYDROmorphone INJ 0.5 MG/0.5 ML SYR IV PRN ×2 (09:44→16:26)
[2022-06-23] MEDS: PANTOprazole 40 MG TAB PO SCH (10:35)
[2022-06-23] MEDS: NSS + 20MEQ KCL 20 MEQ/1,000 ML BAG IV SCH (10:55)
--- NOTE | 2022-06-23 11:44 | Pain Management Consultation ---
Date of Consultation June 23, 2022 Assessment & Plan (1) Lumbar radicular pain: (2) Lumbar spinal stenosis: (3) UTI (urinary tract infection): (4) Hx of bladder cancer: (5) Right leg DVT: Plan 1. We discussed his presenting pain complaints which appear to be most consistent with a left L3 radiculopathy. Patient has multilevel multifactorial lumbar spinal canal stenosis with notable impingement of the left L3 nerve. Due to his current UTI and antibiotic therapy he is a poor candidate for interventional treatment at this time. We did discuss the possibility to pursue interlaminar versus transforaminal REY once UTI is cleared. He would need to be off of antibiotic therapy for 2 weeks prior to consideration of interventional treatment. Patient can be evaluated in the outpatient setting with persisting pain complaint. Please contact office to arrange for outpatient evaluation upon discharge. Patient will also need to be able to safely hold anticoagulation therapy to pursue REY. 2. Continue gabapentin 100 mg 3 times daily. Consider dose titration pending tolerability eventually to 300 mg 3 times daily 3. Continue with dexamethasone. Consider transitioning to Medrol Dosepak for discharge planning 4. Consider adding scheduled dosing of baclofen 5. Patient will continue with hydrocodone for as needed breakthrough pain 6. Pain service will sign off on patient at this time. Please contact pain service for reevaluation as needed. Thank you for allowing us to participate in the care of Mr. Max. History of Present Illness Reason for Consultation: Intractable low back and left lower extremity pain Requesting Physician: Jensen Soto MD Attending Physician: Jensen Soto MD History of Present Illness Mr. Max is a 67-year-old white male who was admitted on 06/21/2022 with abdominal pain/UTI with history of cystectomy/urostomy secondary to bladder cancer March 2022 and a 5-week history of left-sided low back and left lower extremity radicular pattern pain into the thigh. The patient denied any known injury 5 weeks ago at onset of his pain complaints. His pain has been fairly persistent since that time. Patient describes the pain as aching and episodically sharp and shooting with a burning characteristic traveling into the left anterior and medial thigh typically stopping at level the knee. He reports episodic sharp shooting pain with certain movements. His pain is aggravated with standing and walking activities patient reports a sensation of weakness of the left lower extremity due to the discomfort but he denies foot drop or falling. Patient rates his pain a 5-8/10. He denies any right lower extremity radicular pattern pain or weakness The patient does have prior history of axial low back pain and is status post a medial branch radiofrequency ablation procedure in 2019 of L4-S1. He has continued to have significant relief of his typical axial low back pain since the time of that procedure until his recent symptom recurrence. He reports his recent pain feels different in location and characteristic as prior. He has no prior history of the radicular pattern pain in the left thigh. Patient has no bowel incontinence. He denies any further constitutional complaints. He was utilizing ibuprofen at home with minimal benefit. Plan of care discussed with Dr. Philly Ybarra. Pain Assessment Full Body Front + Back: 1. Left low back and gluteal region-radicular pattern 2. Left medial/anterior thigh stopping at knee Pain scale - at its best (0-10): 5 Pain scale - at its worst (0-10): 8 Allergies Allergy/AdvReac Type Severity Reaction Status Date / Time No Known Allergies Allergy Verified 06/21/22 17:42 Home Medications Medication Instructions Recorded Confirmed Type acetaminophen 500 mg tablet 1,000 mg PO QID PRN Pain 06/21/22 06/21/22 History (Tylenol Extra Strength) aspirin 325 mg tablet 325 - 650 mg PO DAILY 06/21/22 06/21/22 History cyanocobalamin (vitamin B-12) 1,000 mcg PO DAILY 06/21/22 06/21/22 History 1,000 mcg tablet (Vitamin B-12) docusate sodium 100 mg tablet 100 mg PO QID PRN Constipation 06/21/22 06/21/22 History (Stool Softener) lisinopril 10 mg tablet 10 mg PO DAILY 06/21/22 06/21/22 History Pain History Pain Intensity Pain scale - at its best (0-10): 5 Pain scale - at its worst (0-10): 8 Patient History Medical History (Updated 06/23/22 @ 06:20 by Jensen Soto MD) Hx of bladder cancer 11/2021 Hypertension no meds Left lumbar radiculitis Lumbar spinal stenosis mod-severe worst at L2-3 with severe left NFS Surgical History (Updated 06/23/22 @ 06:20 by Jensen Soto MD) History of ankle surgery "Left" History of arthroscopy of left shoulder History of shoulder surgery Right x1 Left x3 History of tooth extraction Hx of vasectomy Port-A-Cath in place (12/14/21) Insertion Access Port with Fluoroscopy(Not Applicable) - Keo Peck DO, FACS S/P TURP 9-6-22 Family History Sister Breast cancer Father Hypertension Grandmother Diabetes Aunt Stroke Social History Smoking Status: Never smoker Second Hand Exposure: No; Do You Dip or Chew Tobacco: Yes; Tobacco Cessation Education Requested by Patient: No Hx Alcohol Use: No Hx Substance Use: No Preferred Language: Indonesian Communication Ability: Effective Funeral Pre Need Consultant Required: No Beliefs That Will Affect Care: None marital status: / Current Living Situation: Alone current occupational status: retired Other Information That Helps Us Care for You: No Feels Safe at Home: Yes Safety Concerns: Feels Safe At This Time Assistive Devices: None Physical Exam Physical Exam: General: Patient sitting quietly in exam room in no acute distress. Speech and thought process appropriate. Mood and affect appropriate. Cognition intact. Head: Normocephalic and atraumatic. ENT: No evidence of nasal or oral mucosal lesions. Mucous membranes are moist. Eyes: Pupils equal round reactive to light. Neck: Supple without adenopathy and full range of motion. Abdomen: Soft and nondistended. No organomegaly. Bowel sounds active. Urostomy present. Back/spine: Loss of lumbar lordosis. Nontender over the midline. No focal facet or SI joint tenderness. Nontender in the lumbar paravertebral or quadratus lumborum. Minimally tender throughout the left gluteal region to palpation. No appreciable spasm or myoneural trigger point. Lower extremities: Strength testing 4/5 on the left with hip flexion and 5/5 on the right. All other strength 5/5 and equal bilaterally. SLR negative bilaterally. Hip nontender with internal/external rotation bilaterally. SLR negative bilaterally slight increase in left-sided axial pain. Sensation intact distally to sharp and dull. No appreciable edema. Neurologic: Cranial nerves grossly intact. Ambulatory function not witnessed. Results (Pain Clinic) Diagnostic Review MRI Findings: [facility], [place] [phone] Magnetic Resonance Report Patient:ROSS MAX Admit Date:06/21/22 MR#:[id number] Address1:[address] Acct ID:[id number] Address2: Date:1955 [facility] Zip:[place] [address] Age:67 Location: Sex:M Room/Bed:[facility] Att Phy:Pascual Nassar MD Diagnosis:COMPLICATED UTI, KEV Yue Phy:Janice Zarco DO Service Date:06/21/22 Fam Phy: Interpreting Phy:Lela Lopez MDAdmit Phy:Pascual Nassar MD Ordering Phy:Pascual Nassar MD cc: ~ Exam(s): MRI L SPINE Without Contrast EXAM: MR Lumbar Spine Without Intravenous Contrast CLINICAL HISTORY: Reason for exam: Low back pain, ?L proximal weakness. TECHNIQUE: Magnetic resonance images of the lumbar spine without intravenous contrast in multiple planes. COMPARISON: Comparison made to prior MRI of the lumbar spine from March 23, 2017. FINDINGS: Vertebrae: There are 5 lumbar type vertebral bodies with a moderate dextroscoliosis and normal lumbar lordosis. There is normal vertebral body height and alignment. The bone marrow signal is heterogeneous with areas of focal fat or venous malformations. No acute fracture. There is narrowing of the entire lumbar spinal canal secondary to congenitally short pedicles. There is abnormal articulation of the right L5 transverse process and the sacrum forming a pseudoarthrosis with reactive bone changes. Spinal cord: The conus is normal size, shape and signal characteristics, terminating at T11-12. Soft tissues: Moderate atrophy of the iliopsoas, paraspinous interspinous musculature. The aorta and IVC flow voids are intact. The visualized kidneys are unremarkable. There is increased T2/STIR signal within the interspinous process at L1-2 through L5-S1. DISCS/SPINAL CANAL/NEURAL FORAMINA: L1-L2: Mild disc degeneration with annular disc bulge asymmetric to the right causing mild subarticular recess stenosis, or disc extending into the neural foramina without evidence of impingement or significant stenosis. There is mild facet arthropathy with mild synovitis. L2-L3: Moderate disc degeneration with loss of disc height, reactive endplate change, marginal osteophytosis and annular disc bulge asymmetric to the left causing a mild subarticular recess stenosis, with superimposed congenital short pedicles causing a mild spinal canal stenosis with thecal sac measuring 0.83 cm. There is disc and osteophyte extending to the neural foramina causing mild bilateral stenosis without evidence of neural impingement. There is mild joint arthropathy with mild synovitis. L3-L4: Moderate disc degeneration with loss of disc height, reactive endplate changes, marginal osteophytosis and annular disc bulge causing mild subarticular recess stenosis, with superimposed congenitally short pedicles causing a moderately severe spinal canal stenosis with thecal sac area measuring 0.65 cm. There is disc extending into the neuroforamina causing a mild right and moderate left stenosis with mild impingement of the left L3 nerve or tingling. There is mild facet arthropathy with mild synovitis. L4-L5: Moderate disc degeneration with loss of disc height, reactive endplate changes, marginal osteophytosis and a disc bulge asymmetric to the right causing mild subarticular recess stenosis, superimposed congenitally short pedicles causing a severe spinal canal stenosis with thecal sac measuring 0.42 cm. There is disc and osteophyte extend into the neuroforamina causing a mild right stenosis without evidence of neural impingement. There is mild facet arthropathy with mild synovitis. L5-S1: Moderate disc degeneration with loss of disc height, reactive endplate changes, marginal osteophytosis and in their disc bulge causing a mild subarticular recess stenosis, with disc and osteophyte extend to the neuroforamina causing a moderately severe right and moderate left stenosis with impingement of the L5 nerve root ganglia. There is mild facet arthropathy with mild synovitis. IMPRESSION: 1. Moderate disc degeneration at L2-3, L3-4, L4-5 and L5-S1 with mild disc degeneration at L1-2 with annular disc bulging causing a mild subarticular recess stenosis without evidence of neural impingement. 2. There is a severe spinal canal stenosis at L4-5, moderately severe stenosis at L3-4 and mild stenosis at L2-3 with a congenitally narrow spinal canal. 3. There is mild bilateral L2-3, mild right and moderate left L3-4, mild right L4-5, and moderately severe right and moderate left L5-S1 neuroforaminal stenosis with impingement of the left L3 and bilateral L5 nerve root ganglia. 4. There is mild facet arthropathy with mild synovitis. 5. Intraspinous bursitis at L1-2 through L5-S1. 6. 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 7. No evidence of fracture, infection, tumor or arachnoiditis. Electronically signed by: Lela Lopez MD 06/22/22 00:51 AM Dictated:06/22/2250 Transcribed: 06/22/2250 CT Findings: Close KUB X-Ray (Signed) Joshua Marcus - 06/22/22 Hip and Pelvis X-Ray (Signed) Joshua Marcus - 06/22/22 Lumbar Spine MRI (Signed) Lela Lopez - 06/21/22 Venous Doppler Study (Signed) Aubrey Pavon - 06/21/22 Abdomen/Pelvis CT (Signed) Aubrey Pavon - 06/21/22 Chest X-Ray (Signed) Miki Matthews - 12/14/21 Fluoroscopy 12/14/21 Bone Scan Nuclear Medicine (Signed) Joshua Marcus - 12/07/21 Chest X-Ray (Cancelled) 10/26/21 Abdomen/Pelvis CT (Signed) Aubrey Pavon - 10/20/21 Scrotum Ultrasound (Signed) Buddy Bernal - 10/12/21 Abdomen Ultrasound (Signed) Joshua Marcus - 10/12/21 X-Ray 10/06/21 Chest X-Ray 10/06/21 X-Ray 10/06/21 Abdominal X-Ray (KUB) 10/06/21 Chest X-Ray 10/06/21 Chest X-Ray 10/06/21 Shoulder X-Ray 03/24/19 Xray Report 03/13/17 Xray Report 03/13/17 Xray Report 03/13/17 Xray Report 03/13/17 Xray Report 03/13/17 [facility], [place] [phone] CT Scan Report Patient:ROSS MAX Admit Date:06/21/22 MR#:[id number] Address1:[address] Acct ID:[id number] Address2: Date:1955 [facility] Zip:[place] [address] Age:67 Location:ED Sex:M Room/Bed: Att Phy: Diagnosis:REF BY DOC,ABD/BACK PAIN,HX BLADDER CANCER/SURGERY Yue Phy:Janice Zarco Service Date:06/21/22 [facility] Phy: Interpreting Phy:Aubrey Pavon MDAdmit Phy: Ordering Phy:Wilfred Tam D.O. cc: ~ CT OF THE ABDOMEN AND PELVIS WITHOUT CONTRAST CLINICAL HISTORY: Left lower quadrant abdominal pain. COMPARISON STUDY: CT of the abdomen and pelvis October 20, 2021. TECHNIQUE: Axial images of the abdomen and pelvis were obtained without IV contrast. Images were reviewed in the axial, sagittal, and coronal planes. Automated exposure control was utilized for the study. A dose lowering technique was utilized adhering to the principles of ALARA. FINDINGS: Lung bases are unremarkable. No pneumatosis, free air or portal venous gas is present. Evaluation of the abdomen and pelvis is suboptimal. There are postoperative findings consistent with interval cystectomy with right lower quadrant urostomy and lymph node dissection. Right hydronephrosis has resolved. There is mild dilatation of the left ureter with significant urothelial thickening of the left ureter. There is moderate adjacent retroperitoneal stranding that extends into the left hemipelvis. A few small pelvic fluid collections measure up to 2.1 cm. These may reflect lymphoceles. There are several enlarged retroperitoneal lymph nodes. Left para-aortic lymph node on image 201 of 511 measures 2 x 1.5 cm. Additional left para-aortic lymph node on axial image 246 measures 2.3 x 1.5 cm. There is no evidence for a bowel obstruction. No evidence for acute appendicitis. Unenhanced images of the liver, spleen, adrenal glands and pancreas are unremarkable. There is no biliary or pancreatic ductal dilatation. There are no suspicious osseous lesions. No bowel wall thickening is evident on unenhanced exam. IMPRESSION: 1. Interval cystectomy with right lower quadrant urostomy. Mild dilatation of the left ureter with urothelial thickening of the left ureter. This favors an infectious process. Moderate adjacent retroperitoneal stranding extending into the left hemipelvis. This retroperitoneal stranding is nonspecific but likely infectious. No drainable fluid collection. 2. Multiple enlarged retroperitoneal lymph nodes, as described above. These may be reactive given the suspected infectious process. However, metastatic lymphadenopathy could appear similar. Therefore, short-term follow-up CT in one month is recommended to ensure resolution. 3. No bowel obstruction. No bowel wall thickening. 4. No urinary calculi. ACT 112: Positive. There are findings on this exam that require communication between the performing entity and the patient following Patient Test Result Information Act ([place] Act 112) guidelines. Electronically signed by: Aubrey Pavon M.D. 06/21/2022 5:07 PM Dictated:06/21/22 1650 Transcribed: 06/21/22 1706 Radiology Findings: [facility], [place] [phone] XRay Report Patient:ROSS MAX Admit Date:06/21/22 MR#:[id number] Address1:[address] Acct ID:[id number] Address2: Date:1955 [facility] Zip:[place] [address] Age:67 Location: Sex: Room/Bed:[facility] Att Phy:Jensen Soto MD Diagnosis:COMPLICATED UTI, KEV Yue Phy:Janice Zarco DO Service Date:06/22/22 Fam Phy: Interpreting Phy:Joshua Marcus MDAdmit Phy:Pascual Nassar MD Ordering Phy:Jensen Soto MD cc: ~ XR hip LT 2V w pelvis CLINICAL HISTORY: back pain/L leg pain; eval L hip for OA COMPARISON STUDY: Abdomen and pelvis CT 06/21/2022. FINDINGS: There are surgical clips within the pelvis consistent with a prior cystectomy. No fracture or dislocation within the pelvis or hips. There is mild osteoarthritis within the bilateral hips. IMPRESSION: No fracture or dislocation within the pelvis or hips. ACT 112: Negative or not required by law. Electronically signed by: Joshua Marcus M.D. 06/22/2022 4:31 PM Dictated:06/22/22 1630 Transcribed: 06/22/22 1630 [facility], [place] [phone] XRay Report Patient:ROSS MAX Admit Date:06/21/22 MR#:[id number] Address1:[address] Acct ID:[id number] Address2: Date:1955 [facility] Zip:[place] [address] Age:67 Location:2S Sex:M Room/Bed:[facility] Att Phy:Jensen Soto MD Diagnosis:COMPLICATED UTI, KEV Yue Phy:Janice Zarco DO Service Date:06/22/22 Fam Phy: Interpreting Phy:Joshua Marcus [facility] Phy:Pascual Nassar MD Ordering Phy:Jensen Soto MD cc: ~ KUB HISTORY: constipation, generalized abdominal pain COMPARISON: Abdomen and pelvis CT 06/21/2022. FINDINGS: Mildly dilated gas-filled loops of large and small bowel seen thro ughout the abdomen. There is gas within the rectum. This favors a mild ileus. Surgical clips noted within the deep pelvis consistent with prior cystectomy. The lung bases are clear. Old, healed bilateral rib fractures are noted. No renal calculi. No ureteral calculi. No pneumoperitoneum or pneumatosis. IMPRESSION: Mildly dilated gas-filled loops of large and small bowel seen throughout the abdomen. This favors a mild ileus. ACT 112: Negative or not required by law. Electronically signed by: Joshua Marcus M.D. 06/22/2022 4:30 PM Dictated:06/22/221627 Transcribed: 06/22/221627 Other Findings: [place], [place] [phone] Ultrasound Report Patient:ROSS MAX Admit Date:06/21/22 MR#:[id number] Address1[address] ID:[id number] Address2: Date:1955 [facility] Zip:[place] [address] Age:67 Location:ED Sex:M Room/Bed: Att Phy: Diagnosis:REF BY DOC,ABD/BACK PAIN,HX BLADDER CANCER/SURGERY Yue Phy:Janice Zarco DO Service Date:06/21/22 Fam Phy: Interpreting [facility]: Ordering Phy:Pascual Nassar MD cc: ~ RIGHT LOWER EXTREMITY VENOUS DOPPLER CLINICAL HISTORY: hx RLE dvt, stopped anticoag after 6 weeks. COMPARISON STUDY: None available at time of interpretation. TECHNIQUE: Sonography of the deep venous system of the right lower extremity was performed. Compression and augmentation were evaluated. FINDINGS: The right common femoral, superficial femoral and popliteal veins were compressible. Note is made of nonocclusive deep venous thrombus within one of 2 paired right posterior tibial veins. IMPRESSION: Nonocclusive deep venous thrombus within one of 2 paired right posterior tibial veins. No above the knee thrombus. ACT 112: Negative or not required by law. Electronically signed by: Aubrey Pavon M.D. 06/21/2022 8:49 PM Dictated:06/21/222047 Transcribed: 06/21/222047
[2022-06-23] MEDS ORDERED: WARFARIN SOD 5 MG TAB PO ONE (16:13)
[2022-06-23] MEDS ORDERED: DAPTOmycin 400 MG in SYRINGE 0 ML IV SCH (17:00)
--- NOTE | 2022-06-23 19:23 | Hospitalist Progress Note ---
Date of Service June 23, 2022 Assessment & Plan (1) UTI (urinary tract infection): Plan: GPC, low amounts typically I would not Rx this however, given his CT findings (1. Interval cystectomy with right lower quadrant urostomy. Mild dilatation of the left ureter with urothelial thickening of the left ureter. This favors an infectious process. Moderate adjacent retroperitoneal stranding extending into the left hemipelvis. This retroperitoneal stranding is nonspecific but likely infectious. No drainable fluid collection. 2. Multiple enlarged retroperitoneal lymph nodes, as described above. These may be reactive given the suspected infectious process. However, metastatic lymphadenopathy could appear similar. Therefore, short-term follow-up CT in one month is recommended to ensure resolution.) will continue to Rx stop zosyn change to daptomycin 4mg/kg/day follow culture (2) KEV (acute kidney injury): Plan: 2nd to poor oral intake prior to admission he had also been taking copious amounts of motrin KEV cont to improve he is eating/drinking well stop IV fluids tonight BMP am (3) Lumbar spinal stenosis: Plan: severe based on MRI lumbar spine he has had previous epidural steroid injections and had radiofrequency ablation by Dr Bruce, pain management, in 2019 he has stenosis at multiple levels but worst at L4-L5 he appears to have nerve impingement on the exiting left L3 nerve root, and b/l L5 nerve roots I suspect his current lumbar radiculopathy is from the left L3 nerve impingement cont dexamethasone 4mg IV BID cont gabapentin 100mg TID; change to 300mg TID tomorrow cont dilaudid 0.25mg IV q6h prn baclofen prn obtained left hip x-rays to ensure intrinsic hip disease is not contributing to his pain - only mild OA norco not helpful at all; change to oxycodone 10mg q6h prn pain management consult appreciated they will do L3 injection as outpatient after UTI resolved, etc (4) Hypertension: Plan: lisinopril on hold due to KEV BPs acceptable without it cont to hold trend BPs (5) History of DVT (deep vein thrombosis): Plan: initial dx 03/2022 at [facility] by report took Eliquis for 4-6 weeks then he discontinued it due to cost RLE doppler here at [facility] - "Nonocclusive deep venous thrombus within one of 2 paired right posterior tibial veins. No above the knee thrombus." given recent surgery, bladder cancer, incomplete Rx of the above DVT, and now poor mobility due to his severe lumbar spine pain he is at risk of recurrent DVT and extension/propagation thus, continue heparin infusion s/p coumadin 5mg yesterday will give 5mg again today INR am (6) Lumbar radicular pain: Plan: see above under "stenosis" (7) Constipation: Plan: severe abd x-rays obtained - mild ileus noted - likely from constipation cont miralax BID cont senna (8) Hx of bladder cancer: Plan: s/p cystectomy at [facility] 03/2022 now with urostomy (9) Right leg DVT: Plan: see #5 above (10) 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 see #1 above Plan he is overall improving today daughter extensively updated at bedside labs in am Admission and Anticipated Discharge Date Admission Date: June 21, 2022 Subjective patient states his back and LLE still hurt severely requiring IV dilaudid norco not helpful at all with the above said he is able to get out of bed and ambulate independently to the toilet and sink was able to carry out ADLS this am w/o difficulty abd pain improved had tiny BM today only, however eating well / good appetite tele overnight wnl daughter at bedside Review of Systems Review of Systems: gen - no fevers cv - no cp pulm - no dyspnea GI - N/V - urostomy functioning well Physical Exam Physical Exam: gen - NAD, looks better; at one point he sprung out of bed without difficulty and walked to the commode steadily and comfortably mouth - MMM neck - no JVD heart - RRR, s1 s2, no murmur lungs - CTA b/l abd - soft NT ND BS+; urostomy bag in place ext - no edema, pulses 2+ b/l musculo/neuro - left leg hip flexion/extension with better ROM today and less p ain with doing so Results & Data Results & Data Vital Signs (Past 12 Hours) Vital Signs Temp Pulse Pulse Resp BP Pulse Ox O2 Del Method 06/23/22 19:14 Room Air 06/23/22 15:35 36.6 C 78 18 115/71 97 Room Air 06/23/22 15:27 63 06/23/22 12:00 63 06/23/22 11:25 36.8 C 86 18 110/68 96 Room Air 06/23/22 08:00 63 06/23/22 07:52 36.6 C 109 H 18 136/79 99 Room Air Laboratory Results Laboratory Results - last 48 hr 06/22/22 06/22/22 06/23/22 12:57 19:48 06:26 WBC 7.83 RBC 3.02 L Hgb 8.1 L Hct 25.1 L MCV 83.1 MCH 26.8 MCHC 32.3 RDW Std Deviation 44.4 RDW Coeff of Reina 14.6 H Plt Count 227 MPV 10.9 PT INR APTT 35.4 H 52.4 H* PTT Ratio 1.3 1.9 Sodium Potassium Chloride Carbon Dioxide Anion Gap BUN Creatinine Est Cr Clr Drug Dosing Est GFR ( Amer) Est GFR (Non-Af Amer) BUN/Creatinine Ratio Glucose POC Glucose Calcium 06/23/22 06/23/22 06:26 06:26 WBC RBC Hgb Hct MCV MCH MCHC RDW Std Deviation RDW Coeff of Reina Plt Count MPV PT 10.9 INR 1.0 APTT 53.4 H* PTT Ratio 1.9 Sodium 137 Potassium 4.7 Chloride 108 H Carbon Dioxide 20 L Anion Gap 9 BUN 25 H Creatinine 1.56 H D Est Cr Clr Drug Dosing 55.2 Est GFR ( Amer) 52.1 Est GFR (Non-Af Amer) 45.0 BUN/Creatinine Ratio 16.0 Glucose 160 H POC Glucose Calcium 9.7 Diagnostic Findings urine cx - 10,000 CFU of GPC PG Care Time/CCT Total # of Minutes Spent Total Time Spent with Patient: Total time spent is greater than 50% in coordination of care (as documented) at patient's floor/unit and/or counseling patient: Coding Level of Care Code 04676 SUB INP/OBS CARE 3/50MIN Diagnoses UTI (urinary tract infection) N39.0 KEV (acute kidney injury) N17.9 Lumbar spinal stenosis M48.061 Hypertension I10 History of DVT (deep vein thrombosis) Z86.718 Lumbar radicular pain M54.16 Constipation K59.00 Hx of bladder cancer Z85.51 Right leg DVT I82.401 Status of other artificial opening of urinary tract Z93.6
[2022-06-23] MEDS: oxyCODONE HCL IR 5 MG TAB (IMMEDIATE RELEASE) PO PRN (23:56)
[2022-06-24] MEDS: HYDROmorphone INJ 0.5 MG/0.5 ML SYR IV PRN ×2 (02:39→09:52)
[2022-06-24 06:54] LABS: BUN Creatinine Ratio 15.7 (10-20); Calcium 9.9 mg/dl (8.6-10.3); Creatinine Clr Calc Pharmacy 62.8 ml/min; Est GFR (African American) 59.4 ml/min; Est GFR (Non-African American) 51.3 ml/min; Potassium 4.4 mmol/L (3.5-5.1)
[2022-06-24 07:25] LABS: Hematocrit (blood only) 27.3 % (42.0-52.0); Hemoglobin 8.6 g/dl (14.0-18.0); Mean Corpuscular Hemoglobin 26.9 pg (25.0-34.0); Mean Corpuscular Hgb Conc 31.5 g/dL (32.0-36.0); Mean Corpuscular Volume 85.3 fL (80.0-100.0); Mean Platelet Volume 10.6 fL (9.4-12.4); Platelet Count 309 K/uL (130-400); RDW Coefficient of Variation 14.8 % (11.5-14.5); White Blood Count 20.42 K/ul (4.8-10.8)
[2022-06-24] MEDS: POLYETHYLENE (MIRALAX) 17 GM PACK PO SCH ×2 (07:37→21:01)
[2022-06-24] MEDS: dexAMETHasone 4 MG in SYRINGE 0 ML IV SCH ×2 (07:37→17:16)
[2022-06-24] MEDS: GABAPENTIN 100 MG CAP PO SCH (07:37)
[2022-06-24] MEDS: CYANOCOBALAMIN (B-12) 500 MCG TABLET PO SCH (07:38)
[2022-06-24] MEDS: oxyCODONE HCL IR 5 MG TAB (IMMEDIATE RELEASE) PO PRN ×4 (07:38→21:02)
[2022-06-24] MEDS: PANTOprazole 40 MG TAB PO SCH (07:38)
[2022-06-24 07:45] LABS: Partial Thromboplastin Ratio 2.4; Prothrombin Time 11.4 Seconds (9.0-12.0)
[2022-06-24 07:49] LABS: Partial Thromboplastin Time 68.9 Seconds (21.0-31.0)
[2022-06-24] MEDS: HEPARIN SODIUM/DEXTROSE 25,000 UNITS/500 ML BAG IV SCH ×4 (09:32→23:49)
[2022-06-24] MEDS: SENNA 8.6 MG TAB PO SCH (09:47)
[2022-06-24] MEDS: BACLOFEN 10 MG TAB PO SCH ×2 (10:30→21:05)
[2022-06-24] MEDS: GABAPENTIN 300 MG CAP PO SCH ×2 (13:15→21:05)
[2022-06-24] MEDS ORDERED: Nursing to Pharmacy Communication SCH (13:30)
[2022-06-24 16:20] LABS: Partial Thromboplastin Ratio 1.9
[2022-06-24 16:34] LABS: Partial Thromboplastin Time 52.2 Seconds (21.0-31.0)
--- NOTE | 2022-06-24 16:45 | Hospitalist Progress Note ---
Date of Service June 24, 2022 Assessment & Plan (1) UTI (urinary tract infection): Plan: 2nd to enterococcus, sens to amox. stop daptomycin (previously on zosyn). change to amox 500mg TID. continue 10 days in total given CT findings as below - "1. Interval cystectomy with right lower quadrant urostomy. Mild dilatation of the left ureter with urothelial thickening of the left ureter. This favors an infectious process. Moderate adjacent retroperitoneal stranding extending into the left hemipelvis. This retroperitoneal stranding is nonspecific but likely infectious. No drainable fluid collection. 2. Multiple enlarged retroperitoneal lymph nodes, as described above. These may be reactive given the suspected infectious process. However, metastatic lymphadenopathy could appear similar. Therefore, short-term follow-up CT in one month is recommended to ensure resolution." elevated WBC count today likely from steroids rather than infection blood cx's negative normal appetite, no fever, etc (2) KEV (acute kidney injury): Plan: 2nd to poor oral intake prior to admission he had also been taking copious amounts of motrin KEV cont to improve he is eating/drinking well BMP am (3) Lumbar spinal stenosis: Plan: severe based on MRI lumbar spine he has had previous epidural steroid injections and had radiofrequency ablation by Dr Bruce, pain management, in 2019 he has stenosis at multiple levels but worst at L4-L5 he appears to have nerve impingement on the exiting left L3 nerve root, and b/l L5 nerve roots I suspect his current lumbar radiculopathy is from the left L3 nerve impingement cont dexamethasone 4mg IV BID cont gabapentin but increase to 300mg TID cont dilaudid 0.25mg IV q6h prn baclofen - schedule 5mg BID change oxycodone dosing interval to 10mg q4h prn add tylenol 1gm TID add voltaren gel 4gm qid to low back on left K-pad is in room & patient is using did fine with PT/OT a few days ago; won't need rehab obtained left hip x-rays to ensure intrinsic hip disease is not contributing to his pain - only mild OA pain management consult appreciated they will do L3 injection as outpatient after UTI resolved, etc (4) Hypertension: Plan: lisinopril on hold due to KEV BPs cont to remain acceptable without it cont to hold monitor (5) History of DVT (deep vein thrombosis): Plan: initial dx 03/2022 at [facility] by report took Eliquis for 4-6 weeks then he discontinued it due to cost RLE doppler here at [facility] - "Nonocclusive deep venous thrombus within one of 2 paired right posterior tibial veins. No above the knee thrombus." given recent surgery, bladder cancer, incomplete Rx of the above DVT, and now poor mobility due to his severe lumbar spine pain he is at risk of recurrent DVT and extension/propagation thus, continue heparin infusion s/p coumadin 5mg x 2 days without any rise in INR increase coumadin to 7.5mg daily INR am (6) Lumbar radicular pain: Plan: see above under "stenosis" (7) Constipation: Plan: severe abd x-rays obtained - mild ileus noted - likely from constipation he is moving his bowels w/o abdominal pain, nausea or emesis cont miralax BID cont senna (8) Hx of bladder cancer: Plan: s/p cystectomy at [facility] 03/2022 now with urostomy (9) Right leg DVT: Plan: see #5 above (10) 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 see #1 above urostomy working well Plan he cont to improve d/c tele move to med-surg floor Admission and Anticipated Discharge Date Admission Date: June 21, 2022 Subjective tele wnl overnight did have BM today - soft/liquid eating 100% of meals - robust appetite back pain - ongoing; improved from admission, but still quite painful despite the regimen of meds we are using states PO oxycodone lasts just a few hours has to use IV dilaudid until he is due for the next oxycodone dose worst pain is left low back, near SI joint and paraspinal area on left left thigh pain/radicular pain is improved Review of Systems Review of Systems: gen - no fevers or chills; very good appetite cv - no cp pulm - no dyspnea or cough GI - no N/V or abd pain - urostomy functioning well neuro - able to get OOB unassisted and walks w/ steady gait Physical Exam Physical Exam: gen - NAD, looks very good today & comfortable mouth - MMM neck - no JVD heart - RRR, s1 s2, no murmur lungs - CTA b/l abd - soft NT ND BS+ ext - no edema, pulses 2+ b/l musculo/neuro - left leg hip flexion does not elicit significant pain today; tender to palpation over left paraspinal muscle region and SI joint on left psych - a/o x 3 Results & Data Results & Data Vital Signs (Past 12 Hours) Vital Signs Temp Pulse Pulse Resp BP Pulse Ox O2 Del Method 06/24/22 16:35 78 06/24/22 15:05 36.7 C 86 16 134/81 95 Room Air 06/24/22 11:34 78 06/24/22 10:53 87 16 105/61 95 Room Air 06/24/22 08:00 78 06/24/22 07:09 36.6 C 93 H 16 135/81 93 Room Air Laboratory Results Laboratory Results - last 24 hr 06/23/22 06/24/22 06/24/22 21:59 06:20 06:20 WBC RBC Hgb Hct MCV MCH MCHC RDW Std Deviation RDW Coeff of Reina Plt Count MPV PT 11.4 INR 1.0 APTT 68.9 H* PTT Ratio 2.4 Sodium 137 Potassium 4.4 Chloride 107 Carbon Dioxide 21 Anion Gap 9 BUN 22 Creatinine 1.40 Est Cr Clr Drug Dosing 62.8 Est GFR ( Amer) 59.4 Est GFR (Non-Af Amer) 51.3 BUN/Creatinine Ratio 15.7 Glucose 132 H POC Glucose 152 H Calcium 9.9 06/24/22 06/24/22 06/24/22 06:20 07:14 11:39 WBC 20.42 H D RBC 3.20 L Hgb 8.6 L Hct 27.3 L MCV 85.3 MCH 26.9 MCHC 31.5 L RDW Std Deviation 46.0 RDW Coeff of Reina 14.8 H Plt Count 309 MPV 10.6 PT INR APTT PTT Ratio Sodium Potassium Chloride Carbon Dioxide Anion Gap BUN Creatinine Est Cr Clr Drug Dosing Est GFR ( Amer) Est GFR (Non-Af Amer) BUN/Creatinine Ratio Glucose POC Glucose 142 H 139 H Calcium 06/24/22 06/24/22 15:14 16:35 WBC RBC Hgb Hct MCV MCH MCHC RDW Std Deviation RDW Coeff of Reina Plt Count MPV PT INR APTT 52.2 H* PTT Ratio 1.9 Sodium Potassium Chloride Carbon Dioxide Anion Gap BUN Creatinine Est Cr Clr Drug Dosing Est GFR ( Amer) Est GFR (Non-Af Amer) BUN/Creatinine Ratio Glucose POC Glucose 133 H Calcium Diagnostic Findings urine cx - 10,000 CFU enterococcus; sens to amox PG Care Time/CCT Total # of Minutes Spent Total Time Spent with Patient: Total time spent is greater than 50% in coordination of care (as documented) at patient's floor/unit and/or counseling patient: Coding Level of Care Code 64105 SUB INP/OBS CARE 3/50MIN Diagnoses UTI (urinary tract infection) N39.0 KEV (acute kidney injury) N17.9 Lumbar spinal stenosis M48.061 Hypertension I10 History of DVT (deep vein thrombosis) Z86.718 Lumbar radicular pain M54.16 Constipation K59.00 Hx of bladder cancer Z85.51 Right leg DVT I82.401 Status of other artificial opening of urinary tract Z93.6
[2022-06-24] MEDS: WARFARIN SOD 7.5 MG TAB PO SCH (17:15)
[2022-06-24] MEDS: AMOXICILLIN 500 MG CAP PO SCH ×2 (17:16→21:05)
[2022-06-24] MEDS: DICLOFENAC SOD 1% GEL 100 GM TUBE EXT SCH ×2 (17:43→21:07)
[2022-06-24] MEDS: ACETAMINOPHEN 500 MG TAB PO SCH (21:04)
[2022-06-24] MEDS: MELATONIN 3 MG TAB PO SCH (21:06)
[2022-06-25] MEDS: oxyCODONE HCL IR 5 MG TAB (IMMEDIATE RELEASE) PO PRN ×6 (00:59→23:06)
[2022-06-25 06:44] LABS: Hematocrit (blood only) 23.9 % (42.0-52.0); Hemoglobin 7.8 g/dl (14.0-18.0); Mean Corpuscular Hemoglobin 27.5 pg (25.0-34.0); Mean Corpuscular Hgb Conc 32.6 g/dL (32.0-36.0); Mean Corpuscular Volume 84.2 fL (80.0-100.0); Mean Platelet Volume 11.2 fL (9.4-12.4); Platelet Count 257 K/uL (130-400); RDW Coefficient of Variation 15.1 % (11.5-14.5); RDW Standard Deviation 46.5 fL (36.4-46.3); Red Blood Count 2.84 M/uL (4.70-6.10)
[2022-06-25 07:05] LABS: BUN Creatinine Ratio 20.6 (10-20); Calcium 9.3 mg/dl (8.6-10.3); Creatinine Clr Calc Pharmacy 69.7 ml/min; Est GFR (African American) 67.5 ml/min; Est GFR (Non-African American) 58.2 ml/min; Potassium 4.5 mmol/L (3.5-5.1)
[2022-06-25] MEDS: dexAMETHasone 4 MG in SYRINGE 0 ML IV SCH (07:24)
[2022-06-25 07:26] LABS: INR 1.1 (0.9-1.1); Partial Thromboplastin Ratio 2.4; Prothrombin Time 12.2 Seconds (9.0-12.0)
[2022-06-25 07:30] LABS: Partial Thromboplastin Time 67.2 Seconds (21.0-31.0)
[2022-06-25] MEDS: CYANOCOBALAMIN (B-12) 500 MCG TABLET PO SCH (08:15)
[2022-06-25] MEDS: SENNA 8.6 MG TAB PO SCH (08:15)
[2022-06-25] MEDS: BACLOFEN 10 MG TAB PO SCH ×2 (08:16→20:13)
[2022-06-25] MEDS: GABAPENTIN 300 MG CAP PO SCH ×3 (08:17→20:12)
[2022-06-25] MEDS: ACETAMINOPHEN 500 MG TAB PO SCH ×3 (08:17→20:11)
[2022-06-25] MEDS: PANTOprazole 40 MG TAB PO SCH (08:17)
[2022-06-25] MEDS: AMOXICILLIN 500 MG CAP PO SCH ×3 (08:18→20:12)
[2022-06-25] MEDS: POLYETHYLENE (MIRALAX) 17 GM PACK PO SCH ×2 (08:19→20:13)
[2022-06-25] MEDS: DICLOFENAC SOD 1% GEL 100 GM TUBE EXT SCH ×4 (08:19→20:13)
[2022-06-25] MEDS ORDERED: IRON SUCROSE 200 MG in 0.9 % SODIUM CHLORIDE 100 ML IV ONE (09:15)
[2022-06-25] MEDS: HEPARIN SODIUM/DEXTROSE 25,000 UNITS/500 ML BAG IV SCH (14:07)
--- NOTE | 2022-06-25 14:33 | Hospitalist Progress Note ---
Date of Service June 25, 2022 Assessment & Plan (1) UTI (urinary tract infection): Plan: 2nd to enterococcus, sens to amox. first on zosyn, then daptomycin, with first day of Rx being 06/21/22. changed to amox 500mg TID on 06/24/22. Thus, today is day #5 of therapy. continue 10 days in total given CT findings as below - "1. Interval cystectomy with right lower quadrant urostomy. Mild dilatation of the left ureter with urothelial thickening of the left ureter. This favors an infectious process. Moderate adjacent retroperitoneal stranding extending into the left hemipelvis. This retroperitoneal stranding is nonspecific but likely infectious. No drainable fluid collection. 2. Multiple enlarged retroperitoneal lymph nodes, as described above. These may be reactive given the suspected infectious process. However, metastatic lymphadenopathy could appear similar. Therefore, short-term follow-up CT in one month is recommended to ensure resolution." elevated WBC count today likely from steroids rather than infection blood cx's negative normal appetite, no fever, etc (2) KEV (acute kidney injury): Plan: 2nd to poor oral intake prior to admission he had also been taking copious amounts of motrin resolved Cr 1.2 today BMP am (3) Lumbar spinal stenosis: Plan: severe based on MRI lumbar spine he has had previous epidural steroid injections and had radiofrequency ablation by Dr Bruce, pain management, in 2019 he has stenosis at multiple levels but worst at L4-L5 he appears to have nerve impingement on the exiting left L3 nerve root, and b/l L5 nerve roots I suspect his current lumbar radiculopathy is from the left L3 nerve impingement cont dexamethasone but stop IV; change to 2mg of dex at HS and leave am dose at 4mg cont gabapentin 300mg TID cont dilaudid 0.25mg IV q6h prn cont baclofen 5mg BID cont oxycodone 10mg q4h prn cont tylenol 1gm TID cont voltaren gel 4gm qid to low back on left K-pad is in room & patient is using did fine with PT/OT a few days ago; won't need rehab obtained left hip x-rays to ensure intrinsic hip disease is not contributing to his pain - only mild OA pain management consult appreciated they will do L3 injection as outpatient after UTI resolved, etc overall improving nicely ! (4) Hypertension: Plan: lisinopril on hold due to KEV BPs cont to remain acceptable without it cont to hold monitor (5) History of DVT (deep vein thrombosis): Plan: initial dx 03/2022 at [facility] by report took Eliquis for 4-6 weeks then he discontinued it due to cost RLE doppler here at [facility] - "Nonocclusive deep venous thrombus within one of 2 paired right posterior tibial veins. No above the knee thrombus." given recent surgery, bladder cancer, incomplete Rx of the above DVT, and now poor mobility due to his severe lumbar spine pain he is at risk of recurrent DVT and extension/propagation thus, continue heparin infusion s/p coumadin 5mg x 2 days without any rise in INR started coumadin 7.5mg on 06/24 repeat 7.5mg today INR 1.1 this am check INR am (6) Lumbar radicular pain: Plan: see above under "stenosis" (7) Constipation: Plan: severe but has improved while here abd x-rays obtained - mild ileus noted - likely from constipation he is moving his bowels w/o abdominal pain, nausea or emesis cont miralax BID cont senna (8) Hx of bladder cancer: Plan: s/p cystectomy at [facility] 03/2022 now with urostomy (9) Right leg DVT: Plan: see #5 above (10) 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 see #1 above urostomy working well Plan very nice improvement overnight cont PT/OT Admission and Anticipated Discharge Date Admission Date: June 21, 2022 Subjective patient states "I feel so much better" left low back pain improved left leg radicular symptoms improved he has better mobility of left hip and left leg was able to sleep better last night relative to previous nights eating well drinking well no abd pain urostomy draining clear yellow urine no nausea/emesis Review of Systems Review of Systems: gen - no fevers/chills pulm - no dyspnea GI - moving bowels Physical Exam Physical Exam: gen - NAD, looks great today neck - no JVD heart - RRR, s1 s2, no murmur lungs - CTA b/l abd - soft NT ND BS+; urostomy in place R abdomen with clear yellow urine ext - no edema, pulses 2+ b/l musculo/neuro - left leg hip flexion and external rotation is MUCH better and neither movement causes pain; nontender to palpation over left paraspinal muscle region today psych - a/o x 3 Results & Data Results & Data Vital Signs (Past 12 Hours) Vital Signs Temp Pulse Resp BP Pulse Ox O2 Del Method 06/25/22 10:27 36.8 C 87 17 131/75 94 Room Air 06/25/22 09:48 36.6 C 79 17 130/74 96 Room Air 06/25/22 07:53 36.6 C 78 16 124/74 96 Room Air Laboratory Results Laboratory Results - last 24 hr 06/24/22 06/24/22 06/24/22 15:14 16:35 20:33 WBC RBC Hgb Hct MCV MCH MCHC RDW Std Deviation RDW Coeff of Reina Plt Count MPV PT INR APTT 52.2 H* PTT Ratio 1.9 Sodium Potassium Chloride Carbon Dioxide Anion Gap BUN Creatinine Est Cr Clr Drug Dosing Est GFR ( Amer) Est GFR (Non-Af Amer) BUN/Creatinine Ratio Glucose POC Glucose 133 H 154 H Calcium 06/25/22 06/25/22 06/25/22 05:56 05:56 05:56 WBC 12.70 H RBC 2.84 L Hgb 7.8 L Hct 23.9 L MCV 84.2 MCH 27.5 MCHC 32.6 RDW Std Deviation 46.5 H RDW Coeff of Reina 15.1 H Plt Count 257 MPV 11.2 PT 12.2 H INR 1.1 APTT 67.2 H* PTT Ratio 2.4 Sodium 137 Potassium 4.5 Chloride 107 Carbon Dioxide 22 Anion Gap 8 BUN 26 H Creatinine 1.26 Est Cr Clr Drug Dosing 69.7 Est GFR ( Amer) 67.5 Est GFR (Non-Af Amer) 58.2 BUN/Creatinine Ratio 20.6 H Glucose 130 H POC Glucose Calcium 9.3 PG Care Time/CCT Total # of Minutes Spent Total Time Spent with Patient: Total time spent is greater than 50% in coordination of care (as documented) at patient's floor/unit and/or counseling patient: Coding Level of Care Code 61682 SUB INP/OBS CARE 3/50MIN Diagnoses UTI (urinary tract infection) N39.0 KEV (acute kidney injury) N17.9 Lumbar spinal stenosis M48.061 Hypertension I10 History of DVT (deep vein thrombosis) Z86.718 Lumbar radicular pain M54.16 Constipation K59.00 Hx of bladder cancer Z85.51 Right leg DVT I82.401 Status of other artificial opening of urinary tract Z93.6
[2022-06-25] MEDS: WARFARIN SOD 7.5 MG TAB PO SCH (16:19)
[2022-06-25] MEDS: dexAMETHasone 1 MG TAB PO SCH (20:13)
[2022-06-25] MEDS: MELATONIN 3 MG TAB PO SCH (20:13)
[2022-06-26] MEDS: oxyCODONE HCL IR 5 MG TAB (IMMEDIATE RELEASE) PO PRN ×5 (02:59→22:17)
[2022-06-26] MEDS: HEPARIN SODIUM/DEXTROSE 25,000 UNITS/500 ML BAG IV SCH ×4 (04:31→21:59)
[2022-06-26 07:40] LABS: Basophils # (auto) 0.02 K/uL (0-0.2); Basophils % (auto) 0.2 %; Hematocrit (blood only) 26.5 % (42.0-52.0); Hemoglobin 8.2 g/dl (14.0-18.0); Immature Granulocytes # (auto) 0.15 K/uL (0.01-0.20); Immature Granulocytes % (auto) 1.2 %; Lymphocytes % (auto) 10.4 %; Mean Corpuscular Hemoglobin 26.6 pg (25.0-34.0); Mean Corpuscular Hgb Conc 30.9 g/dL (32.0-36.0); Mean Platelet Volume 10.9 fL (9.4-12.4); Monocytes # (auto) 1.31 K/uL (0.11-0.59); Monocytes % (auto) 10.5 %; Neutrophils % (auto) 77.7 %; Nucleated RBC # (auto) 0.03 K/uL (0-0.12); Nucleated RBC % (auto) 0.2 %; Platelet Count 281 K/uL (130-400); RDW Coefficient of Variation 15.2 % (11.5-14.5); RDW Standard Deviation 47.2 fL (36.4-46.3); Red Blood Count 3.08 M/uL (4.70-6.10); White Blood Count 12.48 K/ul (4.8-10.8)
[2022-06-26 07:57] LABS: BUN Creatinine Ratio 18.8 (10-20); Calcium 9.7 mg/dl (8.6-10.3); Creatinine Clr Calc Pharmacy 68.7 ml/min; Est GFR (African American) 66.2 ml/min; Est GFR (Non-African American) 57.1 ml/min; Potassium 4.4 mmol/L (3.5-5.1)
[2022-06-26] MEDS: GABAPENTIN 300 MG CAP PO SCH ×3 (07:57→19:47)
[2022-06-26] MEDS: AMOXICILLIN 500 MG CAP PO SCH ×3 (07:57→19:45)
[2022-06-26] MEDS: ACETAMINOPHEN 500 MG TAB PO SCH ×3 (07:57→19:44)
[2022-06-26] MEDS: dexAMETHasone 4 MG TAB PO SCH (07:57)
[2022-06-26] MEDS: PANTOprazole 40 MG TAB PO SCH (07:58)
[2022-06-26] MEDS: SENNA 8.6 MG TAB PO SCH (07:58)
[2022-06-26] MEDS: CYANOCOBALAMIN (B-12) 500 MCG TABLET PO SCH (07:58)
[2022-06-26] MEDS: DICLOFENAC SOD 1% GEL 100 GM TUBE EXT SCH ×4 (07:59→19:48)
[2022-06-26] MEDS: POLYETHYLENE (MIRALAX) 17 GM PACK PO SCH ×2 (07:59→19:53)
[2022-06-26] MEDS: BACLOFEN 10 MG TAB PO SCH ×2 (08:05→19:53)
[2022-06-26 08:40] LABS: INR 1.7 (0.9-1.1); Partial Thromboplastin Ratio 2.6
[2022-06-26 08:45] LABS: Partial Thromboplastin Time 72.2 Seconds (21.0-31.0)
[2022-06-26] MEDS ORDERED: IRON SUCROSE 300 MG in SODIUM CHLORIDE 0.9% 250 ML IV ONE (09:30)
--- NOTE | 2022-06-26 10:30 | Hospitalist Progress Note ---
Date of Service June 26, 2022 Assessment & Plan (1) UTI (urinary tract infection): Plan: 2nd to enterococcus, sens to amox. RESOLVED. first on zosyn, then daptomycin, with first day of Rx being 06/21/22. changed to amox 500mg TID on 06/24/22. Thus, today is day #6 of therapy. continue 10 days in total given CT findings as below - "1. Interval cystectomy with right lower quadrant urostomy. Mild dilatation of the left ureter with urothelial thickening of the left ureter. This favors an infectious process. Moderate adjacent retroperitoneal stranding extending into the left hemipelvis. This retroperitoneal stranding is nonspecific but likely infectious. No drainable fluid collection. 2. Multiple enlarged retroperitoneal lymph nodes, as described above. These may be reactive given the suspected infectious process. However, metastatic lymphadenopathy could appear similar. Therefore, short-term follow-up CT in one month is recommended to ensure resolution." elevated WBC count - which was likely due to steroids - has improved to 12 repeat cbc am blood cx's negative (2) Complicated UTI (urinary tract infection): Plan: patient with pre-existing urostomy thus, UTI is "complicated" -- UTI 2nd to urostomy (3) KEV (acute kidney injury): Plan: 2nd to poor oral intake prior to admission he had also been taking copious amounts of motrin resolved Cr 1.2 today BMP am once more for stability (4) Lumbar spinal stenosis: Plan: severe based on MRI lumbar spine he has had previous epidural steroid injections and had radiofrequency ablation by Dr Bruce, pain management, in 2019 he has stenosis at multiple levels but worst at L4-L5 he appears to have nerve impingement on the exiting left L3 nerve root, and b/l L5 nerve roots suspect current lumbar radiculopathy is from the left L3 nerve impingement cont dexamethasone -- 2mg HS, 4mg qam; would wean again on 06/27/22 cont gabapentin 300mg TID cont baclofen 5mg BID cont oxycodone 10mg q4h prn cont tylenol 1gm TID cont voltaren gel 4gm qid to low back on left K-pad is in room & patient is using stop IV dilaudid - has not required any in 24+ hours did fine with PT/OT a few days ago; won't need rehab obtained left hip x-rays to ensure intrinsic hip disease is not contributing to his pain - only mild OA pain management consult appreciated they will do L3 injection as outpatient after UTI resolved, etc will ask loan secretary to set up appt with [facility] in the event his pain worsens/persists (5) Hypertension: Plan: lisinopril was on hold due to KEV BPs cont to remain acceptable without it cont to hold monitor (6) History of DVT (deep vein thrombosis): Plan: initial dx 03/2022 at [facility] by report took Eliquis for 4-6 weeks then he discontinued it due to cost RLE doppler here at [facility] - "Nonocclusive deep venous thrombus within one of 2 paired right posterior tibial veins. No above the knee thrombus." given recent surgery, bladder cancer, incomplete Rx of the above DVT, and now poor mobility due to his severe lumbar spine pain he is at risk of recurrent DVT and extension/propagation thus, continue heparin infusion 5mg coumadin given on 06/22 and 06/23 7.5mg coumadin on 06/24 and 06/25 given jump in INR from 1.1 to 1.7 today will LOWER coumadin back to 5mg/day starting today daily INR while here once INR is >2 will still need "overlap" therapy with IV heparin x 48 hours patient aware of the above (7) Lumbar radicular pain: Plan: see above under "stenosis" (8) Constipation: Plan: severe but now resolved with bowel regimen cont miralax BID cont senna (9) Hx of bladder cancer: Plan: s/p cystectomy at [facility] 03/2022 now with urostomy follows with Dr Donato Lyman [place] [facility] [place] she performed his surgery above given CT abd/pelvis findings (see CT report from this admission) advised he f/u with her shortly after discharge I placed his CT a/p on CD-ROM for him to take to his future appt (10) Right leg DVT: Plan: see #5 above (11) 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 see #1 above urostomy working well Plan await INR to be >2, and will need 48-hours of overlap therapy once that goal is achieved he does NOT have prescription drug coverage thus d/c home with lovenox bridge is not possible Admission and Anticipated Discharge Date Admission Date: June 21, 2022 Subjective patient reports ongoing improvement in back pain left leg pain markedly improved able to ambulate comfortably had another BM today - semi-solid eating robustly - 100% of meals we found out today that patient had not been cooking for himself - we offered to get him Meals on Wheels - he declined such no new concerns Review of Systems Review of Systems: cv - no chest pain pulm - no dyspnea or EMADE GI - no N/V/abd pain (latter resolved) - urostomy continues to drain clear yellow urine Physical Exam Physical Exam: gen - NAD, looks very good mouth - MMM, no thrush neck - no JVD heart - RRR, s1 s2, no murmur lungs - CTA b/l abd - soft NT ND BS+; urostomy in place R abdomen with clear yellow urine ext - no edema, pulses 2+ b/l Results & Data Results & Data Vital Signs (Past 12 Hours) Vital Signs Temp Pulse Resp BP Pulse Ox O2 Del Method 06/26/22 08:00 Room Air 06/26/22 07:45 36.6 C 72 16 113/71 94 Room Air 06/25/22 23:00 36.8 C 76 18 126/80 96 Room Air Laboratory Results Laboratory Results - last 24 hr 06/26/22 06/26/22 06/26/22 07:07 07:07 07:07 WBC 12.48 H RBC 3.08 L Hgb 8.2 L Hct 26.5 L MCV 86.0 MCH 26.6 MCHC 30.9 L RDW Std Deviation 47.2 H RDW Coeff of Reina 15.2 H Plt Count 281 MPV 10.9 Immature Gran % (Auto) 1.2 Neut % (Auto) 77.7 Lymph % (Auto) 10.4 [place] % (Auto) 10.5 Eos % (Auto) 0.0 Baso % (Auto) 0.2 Neut # (Auto) 9.70 H Lymph # (Auto) 1.30 [place] # (Auto) 1.31 H Eos # (Auto) 0.00 Baso # (Auto) 0.02 Immature Gran # (Auto) 0.15 Absolute Nucleated RBC 0.03 Nucleated RBC % (auto) 0.2 PT 18.0 H INR 1.7 H APTT 72.2 H* PTT Ratio 2.6 Sodium 138 Potassium 4.4 Chloride 106 Carbon Dioxide 24 Anion Gap 8 BUN 24 H Creatinine 1.28 Est Cr Clr Drug Dosing 68.7 Est GFR ( Amer) 66.2 Est GFR (Non-Af Amer) 57.1 BUN/Creatinine Ratio 18.8 Glucose 120 H Calcium 9.7 PG Care Time/CCT Total # of Minutes Spent Total Time Spent with Patient: Total time spent is greater than 50% in coordination of care (as documented) at patient's floor/unit and/or counseling patient: Coding Level of Care Code 51576 SUB INP/OBS CARE 2/35MIN Diagnoses UTI (urinary tract infection) N39.0 Complicated UTI (urinary tract infection) N39.0 KEV (acute kidney injury) N17.9 Lumbar spinal stenosis M48.061 Hypertension I10 History of DVT (deep vein thrombosis) Z86.718 Lumbar radicular pain M54.16 Constipation K59.00 Hx of bladder cancer Z85.51 Right leg DVT I82.401 Status of other artificial opening of urinary tract Z93.6
[2022-06-26 15:43] LABS: Partial Thromboplastin Ratio 2.9
[2022-06-26 15:46] LABS: Partial Thromboplastin Time 80.7 Seconds (21.0-31.0)
[2022-06-26] MEDS: WARFARIN SOD 5 MG TAB PO SCH (16:03)
[2022-06-26] MEDS: dexAMETHasone 1 MG TAB PO SCH (19:46)
[2022-06-26] MEDS: MELATONIN 3 MG TAB PO SCH (19:54)
[2022-06-27 00:24] LABS: Partial Thromboplastin Ratio 3.1
[2022-06-27 00:32] LABS: Partial Thromboplastin Time 86.2 Seconds (21.0-31.0)
[2022-06-27] MEDS: oxyCODONE HCL IR 5 MG TAB (IMMEDIATE RELEASE) PO PRN ×4 (02:16→14:10)
[2022-06-27 07:15] LABS: BUN Creatinine Ratio 22.1 (10-20); Calcium 9.9 mg/dl (8.6-10.3); Creatinine Clr Calc Pharmacy 77.8 ml/min; Est GFR (Non-African American) 66.4 ml/min; Potassium 4.3 mmol/L (3.5-5.1)
[2022-06-27 07:28] LABS: Prothrombin Time 21.4 Seconds (9.0-12.0)
[2022-06-27] MEDS ORDERED: IRON SUCROSE 300 MG in SODIUM CHLORIDE 0.9% 250 ML IV ONE (07:30)
[2022-06-27 07:43] LABS: Partial Thromboplastin Ratio 2.5
[2022-06-27 07:45] LABS: Partial Thromboplastin Time 71.5 Seconds (21.0-31.0)
[2022-06-27] MEDS: dexAMETHasone 4 MG TAB PO SCH (07:52)
[2022-06-27] MEDS: GABAPENTIN 300 MG CAP PO SCH ×2 (07:52→13:03)
[2022-06-27] MEDS: PANTOprazole 40 MG TAB PO SCH (07:52)
[2022-06-27] MEDS: CYANOCOBALAMIN (B-12) 500 MCG TABLET PO SCH (07:52)
[2022-06-27] MEDS: ACETAMINOPHEN 500 MG TAB PO SCH ×2 (07:53→13:02)
[2022-06-27] MEDS: AMOXICILLIN 500 MG CAP PO SCH ×2 (07:53→13:03)
[2022-06-27] MEDS: BACLOFEN 10 MG TAB PO SCH (07:53)
[2022-06-27] MEDS: POLYETHYLENE (MIRALAX) 17 GM PACK PO SCH (07:54)
[2022-06-27] MEDS: SENNA 8.6 MG TAB PO SCH (07:54)
[2022-06-27] MEDS: DICLOFENAC SOD 1% GEL 100 GM TUBE EXT SCH ×2 (07:54→13:03)
[2022-06-27 10:33] LABS: Hematocrit (blood only) 27.5 % (42.0-52.0); Hemoglobin 8.7 g/dl (14.0-18.0); Mean Corpuscular Hemoglobin 26.4 pg (25.0-34.0); Mean Corpuscular Hgb Conc 31.6 g/dL (32.0-36.0); Mean Corpuscular Volume 83.3 fL (80.0-100.0); Mean Platelet Volume 11.4 fL (9.4-12.4); Nucleated RBC # (auto) 0.02 K/uL (0-0.12); Nucleated RBC % (auto) 0.1 %; Platelet Count 320 K/uL (130-400); RDW Coefficient of Variation 15.2 % (11.5-14.5); RDW Standard Deviation 45.5 fL (36.4-46.3)
[2022-06-27] MEDS: HEPARIN SODIUM/DEXTROSE 25,000 UNITS/500 ML BAG IV SCH (14:22)
[2022-06-27] MEDS ORDERED: ENOXAPARIN 150 MG/ML SYR SQ STA (14:40)
[2022-06-27] MEDS ORDERED: ENOXAPARIN 1.5 MG/KG SQ SCH (14:45)
[2022-06-27] MEDS: WARFARIN SOD 5 MG TAB PO SCH (16:05)
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
== END 2022-06-27 17:30 | disposition home or self-care (01) | DRG 699 ==
LOC: ED 14:27 → INTOOBSV 19:27 → SUATTDRO 19:27 → 2S 19:27 → 3N 06-24 18:04

== ENCOUNTER 2022-07-11 15:28 | Inpatient (IN) ==
--- NOTE | 2022-07-11 15:34 | ED Triage Note ---
Date of Service July 11, 2022 History of Present Illness This patient was briefly evaluated while in triage. An abbreviated physical exam was performed. This patient is a 67-year-old Male who presents to the ED for evaluation of low back. s/p cystectomy with urostomy bag in March. Denies fever/chills, n/v, chest pain, SOB. Reports decreased urinary output over the last few days. Denies hematuria. Denies lower extremity weakness/numbness/tingling. Physical Exam Constitutional: alert and oriented x3. no acute distress. HEENT: normocephalic, atraumatic. normal conjunctiva. EOM's grossly intact. Respiratory: lungs are clear to auscultation without wheezes, rhonchi, or rales bilaterally. equal chest rise. normal respiratory effort, no accessory muscle use. Cardiovascular: normal heart sounds without murmur. regular rate and rhythm. GI: abdomen is soft, nontender. No palpable masses. No rebound tenderness or guarding. Peripheral vascular: extremities warm and well perfused Psych:appropriate mood and affect. Initial orders for labs and / or imaging were placed and patient was placed in the waiting area until a bed is available. Please see further documentation for the full ED course.
[2022-07-11 16:18] LABS: Appearance Urine Cloudy (Clear); Bacteria Urine Automated Negative (Negative); Bilirubin Urine Negative (Negative); Blood Urine 3+ (Negative); Color Urine Dark Yellow; Epithelial Cell Urine Auto >30 /lpf (0-5); Glucose Urine UA Negative (Negative); Ketones Urine Trace (Negative); Leukocyte Esterase Urine Trace (Negative); Nitrite Urine Negative (Negative); Protein Urine 1+ (Negative); Specific Gravity Urine 1.025 (1.000-1.030); Urobilinogen Urine Negative (Negative); pH Urine 5.5 (4.5-7.5)
--- NOTE | 2022-07-11 16:22 | Emergency Department Note ---
Impression & Plan Anemia requiring transfusions, KEV (acute kidney injury), Complicated urinary tract infection, Acute hyponatremia, Acute pyelonephritis ED Provider Note HISTORY OF PRESENT ILLNESS: Patient is a 67-year-old male presenting with abdominal pain and back pain. Patient reports that he has been difficulties filling his pain medication prescription that he was prescribed during his previous admission. He states that he was feeling good on 60 mg of oxycodone a day, but he is only beginning 30 mg. She reports that she is unable to function secondary to his low back pain. Denies any new injury since his recent discharge 2 weeks ago. Denies any fevers. Denies any chest pain or shortness of breath. Denies any numbness or tingling down his legs. She has a urostomy in place and reports that in the last few days he has had decreased output from the urostomy. He has been on 2 different antibiotics in the last 2 weeks for UTIs. He reports he takes his last dose of antibiotic tomorrow. He reports that he was told he has an ileus at his primary care provider's office. He denies any diarrhea. ROS: as above PHYSICAL EXAM: Constitutional: Patient appears in no acute distress. HENT: Head: Normocephalic and atraumatic. Eyes: EOMI, PERRL Mouth/Throat: Mucous membranes moist. Neck: Trachea midline. Neck supple. Cardiovascular: Tachycardic with regular rhythm. No murmurs, rubs or gallops. Intact distal pulses. Pulmonary/Chest: No respiratory distress. Breath sounds clear and equal bilaterally. No wheezes or rales. Abdominal: BS +. Abdomen soft, no tenderness, rebound or guarding. Urostomy in RLQ with yellow urine output. Rectal: No masses or hemorrhoids appreciated. No bailey blood or melena. Heme occult negative. Back: No midline spinal tenderness, no paraspinal tenderness, no CVA tenderness. Musculoskeletal: No edema, tenderness or deformity noted. Skin: Warm and dry. No rash, erythema, pallor or cyanosis Psychiatric: Appropriate mood and affect for situation. Neurological: Alert and keenly responsive. CN II-XII grossly intact, moving all extremities equally and fully. MDM: - Vitals signs showed tachycardia. - History obtained via patient. Patient presents with back pain and abdominal pain. Reports that he has been having progressively worsening back pain since his discharge from the hospital 2 weeks ago. He reports this because he has not been getting his appropriate pain medication prescription. He is complaining of generalized abdominal pain and reports his urostomy has had decreased output in the last few days. He has been being treated for a urinary tract infection. - Chronic conditions affecting care: HTN; hx of bladder cancer; lumbar stenosis - Differential diagnoses include, but are not limited to: UTI; small bowel obstruction; ureteral stone; spinal fracture - Order placed for continuous cardiac monitoring. At this time, monitor showed rate of 100 bpm with normal sinus rhythm, per my interpretation. - External medical records reviewed. Patient's urine culture from 07/04/2022 was reviewed. He grew Enterobacter cloacae which was significantly resistant to most oral interventions. On review the patient's chart, he has been on ciprofloxacin for the last 12 days and is scheduled for his last dose tomorrow. - ER pharmacist consulted for antibiotic coverage and recommended meropenem. - Laboratory workup interpreted by myself showed leukocytosis (WBC 12.56); anemia (Hgb 6.7); KEV (Cr 1.65); hyponatremia (Na 129); normal lipase; normal lactate; elevated procalcitonin - Blood cultures ordered. - Patient given IV meropenem for UTI. - CT abdomen/pelvis with IV contrast showed mild to moderate hydronephrosis and concern for ascending infection/pyelonephritis. Noted to have circumferential rectal wall thickening concerning for possible proctitis. - Patient type and screened and 2 units PRBC ordered for transfusion. - Patient initially given 2L NS in ER. Given 50 mcg IV fentanyl for his continued back pain - Discussion had with psychosocial rehabilitation counselor about patient's case and need for admission. - Hospitalist, Dr. Calderón, consulted for admission. - Patient admitted to [facility] Hospitalist service for further evaluation and management. I provided 48 minutes of critical care time to this patient's care outside of billable procedures. ASSESSMENT AND PLAN: Diagnosis: anemia requiring transfusion; KEV; hyponatremia; pyelonephritis; complicated UTI Plan: admit Past Med/Surg History Medical History (Updated 07/11/22 @ 19:14 by Yu Avila MD) Chronic anticoagulation Hx of bladder cancer 11/2021 Hypertension no meds Left lumbar radiculitis Lumbar spinal stenosis mod-severe worst at L2-3 with severe left NFS Surgical History History of ankle surgery "Left" History of arthroscopy of left shoulder History of shoulder surgery Right x1 Left x3 History of tooth extraction Hx of vasectomy Port-A-Cath in place (12/14/21) Insertion Access Port with Fluoroscopy(Not Applicable) - Keo Peck DO, FACS S/P TURP 9-6-22 Family History Sister Breast cancer Father Hypertension Grandmother Diabetes Aunt Stroke Social History Smoking Status: Never smoker Second Hand Exposure: No; Do You Dip or Chew Tobacco: Yes; Hx Alcohol Use: No Hx Substance Use: No Preferred Language: Palauan Communication Ability: Effective Manual Qa Tester Required: No Beliefs That Will Affect Care: None marital status: / Current Living Situation: Alone current occupational status: retired Feels Safe at Home: Yes Assistive Devices: None Allergies Allergies Allergy/AdvReac Type Severity Reaction Status Date / Time No Known Allergies Allergy Verified 07/07/22 08:20 Home Meds Home Medications Medication Instructions Recorded Confirmed cyanocobalamin (vitamin B-12) 1,000 mcg PO DAILY 06/21/22 07/07/22 1,000 mcg tablet (Vitamin B-12) docusate sodium 100 mg tablet 100 mg PO QID PRN Constipation 06/21/22 07/07/22 (Stool Softener) lisinopril 10 mg tablet 10 mg PO DAILY 06/21/22 07/07/22 Previous Rx's Medication Instructions Recorded baclofen 10 mg tablet 5 mg PO BID #60 tabs 06/27/22 dexamethasone 1 mg tablet See Rx Instructions .Route 06/27/22 .COMPLEX #31 tabs diclofenac sodium 1 % topical gel 4 g EXT QID #100 grams 06/27/22 (Voltaren Arthritis Pain) gabapentin 300 mg capsule 300 mg PO TID #90 caps 06/27/22 naloxone 4 mg/actuation nasal 1 spray intranasal Q3M sedation/ 06/27/22 spray (Narcan) overdose #2 ea oxycodone 10 mg tablet,crush 10 mg PO BID #60 tabs 06/27/22 resistant,extended release 12 hr (OxyContin) oxycodone 5 mg tablet 5 mg PO Q6H PRN severe pain (scale 06/27/22 score 7-10) #60 tabs polyethylene glycol 3350 17 gram 17 g PO BID #60 ea 06/27/22 oral powder packet (Miralax) sennosides 8.6 mg tablet (Senokot) 17.2 mg PO QAM #30 tabs 06/27/22 warfarin 5 mg tablet 5 mg PO DAILY@1600 #30 tabs 06/27/22 Results & Data (ED) Vital Signs Vital Signs - 24 hr 07/11/22 15:30 07/11/22 16:29 07/11/22 16:46 Temperature 36.8 C Temperature Source Temporal Artery Scan Pulse Rate 125 H Pulse Rate from SpO2 Sensor Respiratory Rate 20 Respiratory Effort / Characteristics Non-Labored Spontaneous Respiratory Depth Normal Blood Pressure 102/61 94/62 L Blood Pressure Mean 74 72 Pulse Oximetry 97 97 Oxygen Delivery Method Room Air Room Air Sepsis New/Unexplained Change in Mental Status N/A Sepsis Action Taken by Nursing No Action Required 07/11/22 16:47 07/11/22 18:21 07/11/22 18:15 Temperature Temperature Source Pulse Rate 112 H 113 H Pulse Rate from SpO2 Sensor Respiratory Rate 20 19 Respiratory Effort / Characteristics Respiratory Depth Normal Blood Pressure Blood Pressure Mean Pulse Oximetry 97 Oxygen Delivery Method Sepsis New/Unexplained Change in Mental Status Sepsis Action Taken by Nursing 07/11/22 18:20 07/11/22 19:04 07/11/22 19:04 Temperature Temperature Source Pulse Rate 114 H 123 H Pulse Rate from SpO2 Sensor 113 H 124 H Respiratory Rate 21 22 Respiratory Effort / Characteristics Respiratory Depth Blood Pressure 112/60 Blood Pressure Mean 77 Pulse Oximetry 98 97 Oxygen Delivery Method Sepsis New/Unexplained Change in Mental Status Sepsis Action Taken by Nursing 07/11/22 19:10 Temperature Temperature Source Pulse Rate 119 H Pulse Rate from SpO2 Sensor 118 H Respiratory Rate 25 H Respiratory Effort / Characteristics Respiratory Depth Blood Pressure Blood Pressure Mean Pulse Oximetry 99 Oxygen Delivery Method Sepsis New/Unexplained Change in Mental Status Sepsis Action Taken by Nursing Laboratory Data 07/11/22 17:25 07/11/22 17:25 Lab Results 07/11/22 07/11/22 07/11/22 Range/Units 15:47 17:25 17:25 WBC 12.56 H (4.8-10.8) K/ul RBC 2.55 L (4.70-6.10) M/uL Hgb 6.7 L* (14.0-18.0) g/dl Hct 21.6 L (42.0-52.0) % MCV 84.7 (80.0-100.0) fL MCH 26.3 (25.0-34.0) pg MCHC 31.0 L (32.0-36.0) g/dL RDW Std Deviation 52.9 H (36.4-46.3) fL RDW Coeff of Reina 17.1 H (11.5-14.5) % Plt Count 242 (130-400) K/uL MPV 10.8 (9.4-12.4) fL Immature Gran % (Auto) 1.0 % Neut % (Auto) 85.6 % Lymph % (Auto) 6.1 % [place] % (Auto) 6.9 % Eos % (Auto) 0.2 % Baso % (Auto) 0.2 % Neut # (Auto) 10.75 H (1.40-6.50) K/uL Lymph # (Auto) 0.77 L (1.2-3.4) K/uL [place] # (Auto) 0.87 H (0.11-0.59) K/uL Eos # (Auto) 0.03 (0-0.50) K/uL Baso # (Auto) 0.02 (0-0.2) K/uL Immature Gran # (Auto) 0.12 (0.01-0.20) K/uL RBC Morphology Unremarkable Sodium 129 L (136-145) mmol/L Potassium 5.0 (3.5-5.1) mmol/L Chloride 102 (98-107) mmol/L Carbon Dioxide 19 L (21-32) mmol/L Anion Gap 8 (3-11) BUN 42 H (6-23) mg/dl Creatinine 1.65 H (0.6-1.4) mg/dl Est Cr Clr Drug Dosing 52.9 ml/min Est GFR ( Amer) 48.7 ml/min Est GFR (Non-Af Amer) 42.0 ml/min BUN/Creatinine Ratio 25.5 H (10-20) Glucose 125 H (70-99(Fasting)) mg/dl Lactate (0.4-2.0) mmol/L Calcium 8.8 (8.6-10.3) mg/dl Total Bilirubin 0.3 (0.2-1.0) mg/dl AST 14 (13-39) U/L ALT 16 (7-52) U/L Alkaline Phosphatase 125 H (34-104) U/L Total Protein 6.5 (6.0-8.3) gm/dl Albumin 2.5 L (3.4-5.0) gm/dl Globulin 4.0 (2.5-4.0) gm/dl Albumin/Globulin Ratio 0.6 L (0.9-2) Lipase 15 (11-82) U/L Procalcitonin (0-0.5) ng/ml Urine Color Dark Yellow Urine Appearance Cloudy A (Clear) Urine pH 5.5 (4.5-7.5) Ur Specific [place] 1.025 (1.000-1.030) Urine Protein 1+ H (Negative) Urine Glucose (UA) Negative (Negative) Urine Ketones Trace H (Negative) Urine Blood 3+ H (Negative) Urine Nitrite Negative (Negative) Urine Bilirubin Negative (Negative) Urine Urobilinogen Negative (Negative) Ur Leukocyte Esterase Trace H (Negative) Urine WBC (Auto) 10-30 H (0-5) /hpf Urine RBC (Auto) >30 H (0-4) /hpf U Hyaline Cast (Auto) 10-30 H (0-5) /lpf U Epithel Cells (Auto) >30 H (0-5) /lpf Urine Bacteria (Auto) Negative (Negative) Ur Renal Epithelial Cell Not Reportable Urine Yeast Not Reportable Blood Type Antibody Screen 07/11/22 07/11/22 07/11/22 Range/Units 17:25 17:25 18:04 WBC (4.8-10.8) K/ul RBC (4.70-6.10) M/uL Hgb (14.0-18.0) g/dl Hct (42.0-52.0) % MCV (80.0-100.0) fL MCH (25.0-34.0) pg MCHC (32.0-36.0) g/dL RDW Std Deviation (36.4-46.3) fL RDW Coeff of Reina (11.5-14.5) % Plt Count (130-400) K/uL MPV (9.4-12.4) fL Immature Gran % (Auto) % Neut % (Auto) % Lymph % (Auto) % [place] % (Auto) % Eos % (Auto) % Baso % (Auto) % Neut # (Auto) (1.40-6.50) K/uL Lymph # (Auto) (1.2-3.4) K/uL [place] # (Auto) (0.11-0.59) K/uL Eos # (Auto) (0-0.50) K/uL Baso # (Auto) (0-0.2) K/uL Immature Gran # (Auto) (0.01-0.20) K/uL RBC Morphology Sodium (136-145) mmol/L Potassium (3.5-5.1) mmol/L Chloride (98-107) mmol/L Carbon Dioxide (21-32) mmol/L Anion Gap (3-11) BUN (6-23) mg/dl Creatinine (0.6-1.4) mg/dl Est Cr Clr Drug Dosing ml/min Est GFR ( Amer) ml/min Est GFR (Non-Af Amer) ml/min BUN/Creatinine Ratio (10-20) Glucose (70-99(Fasting)) mg/dl Lactate 1.2 (0.4-2.0) mmol/L Calcium (8.6-10.3) mg/dl Total Bilirubin (0.2-1.0) mg/dl AST (13-39) U/L ALT (7-52) U/L Alkaline Phosphatase (34-104) U/L Total Protein (6.0-8.3) gm/dl Albumin (3.4-5.0) gm/dl Globulin (2.5-4.0) gm/dl Albumin/Globulin Ratio (0.9-2) Lipase (11-82) U/L Procalcitonin 1.56 H (0-0.5) ng/ml Urine Color Urine Appearance (Clear) Urine pH (4.5-7.5) Ur Specific [place] (1.000-1.030) Urine Protein (Negative) Urine Glucose (UA) (Negative) Urine Ketones (Negative) Urine Blood (Negative) Urine Nitrite (Negative) Urine Bilirubin (Negative) Urine Urobilinogen (Negative) Ur Leukocyte Esterase (Negative) Urine WBC (Auto) (0-5) /hpf Urine RBC (Auto) (0-4) /hpf U Hyaline Cast (Auto) (0-5) /lpf U Epithel Cells (Auto) (0-5) /lpf Urine Bacteria (Auto) (Negative) Ur Renal Epithelial Cell Urine Yeast Blood Type A Positive Antibody Screen NEGATIVE Administered Medications Meropenem 500 mg/ Syringe 10 mls @ 2 mls/min IV Q8H [facility]; Protocol Stop: 07/21/22 18:14 Last Admin: 07/11/22 19:06 Dose: 2 mls/min Documented By: PETER Discontinued Medications Fentanyl Citrate (Fentanyl Citrate Pf 100 Mcg/2 Ml Vial) 50 mcg IV NOW ONE Stop: 07/11/22 18:22 Last Admin: 07/11/22 18:27 Dose: 50 mcg Documented By: PETER Sodium Chloride (Nss 1000ml) 1,000 mls @ 999 mls/hr IV .Q1H1M ONE Stop: 07/11/22 17:23 Last Infusion: 07/11/22 19:12 Dose: 0 mls/hr Documented By: Admin: 07/11/22 16:41 Dose: 999 mls/hr Documented By: PETER Sodium Chloride (Nss 1000ml) 1,000 mls @ 999 mls/hr IV .Q1H1M ONE Stop: 07/11/22 17:53 Last Infusion: 07/11/22 19:12 Dose: 0 mls/hr Documented By: Admin: 07/11/22 17:26 Dose: 999 mls/hr Documented By: PETER Ioversol (Optiray 320 100ml) 85 ml IV ONCE ONE Stop: 07/11/22 18:48 Last Admin: 07/11/22 18:37 Dose: 85 ml Documented By: TE Imaging Data Radiologist's Impression: Abdomen/Pelvis CT 07/11/22 15:35 CT SCAN OF THE ABDOMEN AND PELVIS WITH IV CONTRAST CLINICAL HISTORY: Flank pain COMPARISON STUDY: Abdominal CT dated 06/21/2022. TECHNIQUE: Following the IV administration of 85 cc of Optiray 320, CT scan of the abdomen and pelvis is performed from the lung bases to the proximal femora. Images are reviewed in the axial, sagittal, and coronal planes. IV contrast was administered without complication. A dose lowering technique was utilized adhering to the principles of ALARA. CT DOSE: 1185.13 mGy.cm FINDINGS: Lung bases: The heart is normal in size and without pericardial effusion. There is elevation of the left hemidiaphragm with segmental atelectasis at the left lung base. Scarring/atelectasis is also seen at the right lung base. There is no airspace consolidation typical for pneumonia or pleural effusion. Liver: The contrast-enhanced liver is normal in size, contour, and attenuation. There is no intrahepatic biliary ductal dilatation. The hepatic veins and portal veins are patent. Gallbladder: The gallbladder is distended but otherwise normal in appearance. Spleen: Normal in size and attenuation. Pancreas: Moderately atrophic and grossly unremarkable. Adrenal glands: Unremarkable. Kidneys: The contrast enhanced kidneys are normal in size. There is mild to mod erate left hydroureteronephrosis. The left ureter is dilated into the pelvis. No hydronephrosis is seen on the right. An extrarenal pelvis is noted on the right. There is heterogeneous enhancement of the left kidney with mild left-sided perinephric stranding. Urothelial thickening or enhancement is seen within the left ureter with surrounding infiltration. Abdominal vasculature: The abdominal aorta is normal in course and caliber noting mild to moderate atherosclerotic calcification. Lymphadenopathy encases and at least mildly narrows the left iliac vein. Bowel: There is moderate colonic fecal retention. No bowel obstruction is seen. 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 There is mild rectal wall thickening. The appendix is well-visualized and normal. Peritoneum: There is no intraperitoneal free air or abdominal ascites. A midline surgical scar is noted. There is a fat-containing umbilical hernia. Lymphadenopathy: There is bulky retroperitoneal and iliac chain lymphadenopathy. This has progressed as compared to 06/21/2022. There is mild surrounding infil tration. A left periaortic node on image #205 measures 3.2 x 1.7 cm (previously measured 2.3 x 1.5 cm). A left iliac chain node on image #262 measures 3.1 x 2.4 cm, and a left external iliac chain node on image #300 measures 2.3 x 1.8 cm. A 13 mm cystic focus along the left external iliac chain on image heterogeneity is unchanged and may represent a tiny inclusion cyst. Pelvic viscera: The bladder and prostate are surgically absent. A 4.2 x 2.9 cm soft tissue implant is identified in the cystectomy bed on image #367. An 11 mm implant in the posterior pelvis on image 03/10/2022 is new from previous. Skeletal structures: The skeletal structures are osteopenic. There is mild to moderate lumbosacral spondylosis. No lytic or blastic lesions are seen. IMPRESSION: 1. There is postoperative change from cystectomy and prostatectomy with right lower quadrant urostomy. 2. There is [id number] left hydroureteronephrosis. Urothelial thickening and enhancement is seen in the left ureter, and there is heterogeneous enhancement of the left kidney with mild surrounding infiltration. Correlate with clinical findings and urinalysis for evidence of ascending infection/pyelonephritis. 3. No hydronephrosis is seen on the right. 4. Moderate constipation. 5. There is circumferential rectal wall thickening. Correlate clinical for evidence of a nonspecific proctitis. 6. There is a large soft tissue implant identified in the cystectomy bed. Additionally, there is enlarging retroperitoneal and iliac chain lymphadenopathy as compared to 06/21/2022. These findings indicate progression of metastatic disease. 7. Additional findings as above. ACT 112: Negative or not required by law. Electronically signed by: Buddy Bernal M.D. 07/11/2022 7:06 PM Discharge Plan Visit Data Chief Complaint: Abdominal Pain Stated Complaint: ABDOMINAL PAIN ED Provider: Yu Avila Discharge Problem: Anemia requiring transfusions, KEV (acute kidney injury), Complicated urinary tract infection, Acute hyponatremia, Acute pyelonephritis Forms Stand Alone Forms: [facility] Prescriptions Prescriptions: No Action cyanocobalamin (vitamin B-12) [Vitamin B-12] 1,000 mcg Tablet 1,000 mcg PO DAILY lisinopril 10 mg tablet 10 mg PO DAILY docusate sodium [Stool Softener] 100 mg Tablet 100 mg PO QID PRN (Reason: Constipation) warfarin 5 mg Tablet 5 mg PO DAILY@1600 Qty: 30 0RF diclofenac sodium [Voltaren Arthritis Pain] 1 % Gel 4 g EXT QID Qty: 100 0RF gabapentin 300 mg Capsule 300 mg PO TID Qty: 90 0RF oxycodone 5 mg tablet 5 mg PO Q6H PRN (Reason: severe pain (scale score 7-10)) Qty: 60 0RF sennosides [Senokot] 8.6 mg Tablet 17.2 mg PO QAM Qty: 30 0RF polyethylene glycol 3350 [Miralax] 17 gram Powder In Packet 17 g PO BID Qty: 60 0RF dexamethasone 1 mg tablet See Rx Instructions .ROUTE .COMPLEX Qty: 31 0RF Rx Instructions: Once daily by mouth Take 5 tabs for 2 days 4 tabs for 2 days 3 tabs for 2 days 2 tabs for 2 days 1 tab for 2 days half a tab for 2 days naloxone [Narcan] 4 mg/actuation spray,non-aerosol 1 spray intranasal Q3M Qty: 2 0RF baclofen 10 mg Tablet 5 mg PO BID Qty: 60 0RF oxycodone [OxyContin] 10 mg tablet,oral only,ext.rel.12 hr 10 mg PO BID Qty: 60 0RF Referrals Referrals: Janice Zarco DO [Primary Care Provider] -
[2022-07-11] MEDS ORDERED: SODIUM CHLORIDE 0.9% 1000ML 1,000 ML IV ONE ×2 (16:23→16:53)
[2022-07-11 16:31] LABS: RBC Urine Automated >30 /hpf (0-4)
[2022-07-11 17:56] LABS: Hematocrit (blood only) 21.6 % (42.0-52.0); Hemoglobin 6.7 g/dl (14.0-18.0); Mean Corpuscular Hemoglobin 26.3 pg (25.0-34.0); Mean Corpuscular Volume 84.7 fL (80.0-100.0); Mean Platelet Volume 10.8 fL (9.4-12.4); Platelet Count 242 K/uL (130-400); RDW Coefficient of Variation 17.1 % (11.5-14.5); RDW Standard Deviation 52.9 fL (36.4-46.3); Red Blood Count 2.55 M/uL (4.70-6.10); White Blood Count 12.56 K/ul (4.8-10.8)
[2022-07-11 18:11] LABS: Albumin Globulin Ratio 0.6 (0.9-2); Albumin Level 2.5 gm/dl (3.4-5.0); BUN Creatinine Ratio 25.5 (10-20); Bilirubin,Total 0.3 mg/dl (0.2-1.0); Calcium 8.8 mg/dl (8.6-10.3); Creatinine Clr Calc Pharmacy 52.9 ml/min; Est GFR (African American) 48.7 ml/min; Total Protein 6.5 gm/dl (6.0-8.3)
[2022-07-11 18:12] LABS: Basophils # (auto) 0.02 K/uL (0-0.2); Basophils % (auto) 0.2 %; Eosinophils # (auto) 0.03 K/uL (0-0.50); Eosinophils % (auto) 0.2 %; Immature Granulocytes # (auto) 0.12 K/uL (0.01-0.20); Lymphocytes # (auto) 0.77 K/uL (1.2-3.4); Lymphocytes % (auto) 6.1 %; Monocytes # (auto) 0.87 K/uL (0.11-0.59); Monocytes % (auto) 6.9 %; Neutrophils # (auto) 10.75 K/uL (1.40-6.50); Neutrophils % (auto) 85.6 %; RBC Morphology Unremarkable
[2022-07-11] MEDS ORDERED: fentaNYL citrate PF 100 MCG/2 ML VIAL IV ONE (18:21)
[2022-07-11] MEDS ORDERED: OPTIRAY 320 100ml IV ONE (18:47)
[2022-07-11] MEDS ORDERED: SODIUM CHLORIDE 0.9% 250 ML IV PRN ×2 (19:05→19:10)
[2022-07-11] MEDS: MEROPENEM 500 MG in SYRINGE 0 ML IV SCH (19:06)
--- NOTE | 2022-07-11 19:09 | CT Scan Report ---
CT SCAN OF THE ABDOMEN AND PELVIS WITH IV CONTRAST CLINICAL HISTORY: Flank pain COMPARISON STUDY: Abdominal CT dated 06/21/2022. TECHNIQUE: Following the IV administration of 85 cc of Optiray 320, CT scan of the abdomen and pelvi s is performed from the lung bases to the proximal femora. Images are reviewed in the axial, sagittal , and coronal planes. IV contrast was administered without complication. A dose lowering technique wa s utilized adhering to the principles of ALARA. CT DOSE: 1185.13 mGy.cm FINDINGS: Lung bases: The heart is normal in size and without pericardial effusion. There is elevation of the l eft hemidiaphragm with segmental atelectasis at the left lung base. Scarring/atelectasis is also seen at the right lung base. There is no airspace consolidation typical for pneumonia or pleural effusion . Liver: The contrast-enhanced liver is normal in size, contour, and attenuation. There is no intrahepa tic biliary ductal dilatation. The hepatic veins and portal veins are patent. Gallbladder: The gallbladder is distended but otherwise normal in appearance. Spleen: Normal in size and attenuation. Pancreas: Moderately atrophic and grossly unremarkable. Adrenal glands: Unremarkable. Kidneys: The contrast enhanced kidneys are normal in size. There is mild to moderate left hydroureter onephrosis. The left ureter is dilated into the pelvis. No hydronephrosis is seen on the right. An ex trarenal pelvis is noted on the right. There is heterogeneous enhancement of the left kidney with mil d left-sided perinephric stranding. Urothelial thickening or enhancement is seen within the left uret er with surrounding infiltration. Abdominal vasculature: The abdominal aorta is normal in course and caliber noting mild to moderate at herosclerotic calcification. Lymphadenopathy encases and at least mildly narrows the left iliac vein. Bowel: There is moderate colonic fecal retention. No bowel obstruction is seen. An ileal conduit/uros franko is noted in the right lower quadrant. There is mild rectal wall thickening. The appendix is wel l-visualized and normal. Peritoneum: There is no intraperitoneal free air or abdominal ascites. A midline surgical scar is not ed. There is a fat-containing umbilical hernia. Lymphadenopathy: There is bulky retroperitoneal and iliac chain lymphadenopathy. This has progressed as compared to 06/21/2022. There is mild surrounding infiltration. A left periaortic node on image #20 5 measures 3.2 x 1.7 cm (previously measured 2.3 x 1.5 cm). A left iliac chain node on image #262 airam sures 3.1 x 2.4 cm, and a left external iliac chain node on image #300 measures 2.3 x 1.8 cm. A 13 mm cystic focus along the left external iliac chain on image heterogeneity is unchanged and may represe nt a tiny inclusion cyst. Pelvic viscera: The bladder and prostate are surgically absent. A 4.2 x 2.9 cm soft tissue implant is identified in the cystectomy bed on image #367. An 11 mm implant in the posterior pelvis on image is new from previous. Skeletal structures: The skeletal structures are osteopenic. There is mild to moderate lumbosacral sp ondylosis. No lytic or blastic lesions are seen. IMPRESSION: 1. There is postoperative change from cystectomy and prostatectomy with right lower quadrant urostomy . 2. There is [id number] left hydroureteronephrosis. Urothelial thickening and enhancement is see n in the left ureter, and there is heterogeneous enhancement of the left kidney with mild surrounding infiltration. Correlate with clinical findings and urinalysis for evidence of ascending infection/py elonephritis. 3. No hydronephrosis is seen on the right. 4. Moderate constipation. 5. There is circumferential rectal wall thickening. Correlate clinical for evidence of a nonspecific proctitis. 6. There is a large soft tissue implant identified in the cystectomy bed. Additionally, there is enla rging retroperitoneal and iliac chain lymphadenopathy as compared to 06/21/2022. These findings indica te progression of metastatic disease. 7. Additional findings as above. ACT 112: Negative or not required by law. Electronically signed by: Buddy Bernal M.D. 07/11/2022 7:06 PM
[2022-07-11] MEDS ORDERED: HYDROmorphone INJ 1 MG/ML SYRINGE IV STA (20:07)
--- NOTE | 2022-07-11 20:42 | History & Physical Report ---
Date of Service July 11, 2022 Assessment & Plan (1) Anemia requiring transfusions: Plan: Patient with symptomatic anemia - Hgb=6.7, Hct=21.6. Unclear source although urinary is most likely given his medical history, 3+ blood on UA He is to receive 2u PRBCs -Repeat CBC in AM -Urology consultation appreciated (2) Complicated urinary tract infection: Plan: Patient with recent UTI -culture from 07/04/22 POSITIVE for Enterobacter cloacae. Prior urine culture from 06/22/22 POSITIVE for Enterobacter faecalis. Patient has been on Ciprofloxacin with last dose 07/12/22. CT of the abdomen with [id number] left hydroureteronephrosis with urothelial thickening and enhancement in the left ureter as well as heterogenous enhancement of the left kidney with mild surrounding infiltration. UA does not strongly support infection at this time - trace LE, 10-30WBCs with >30 RBCs and Negative bacteria. He does have leukocytosis and elevated procalcitonin which support infection. He has received meropenem in the ER -Follow cultures sent from ER -Continue Meropenem for now. Consider discontinuing antibiotics if cultures remain negative x 48 hours. (3) Urothelial carcinoma of bladder: Plan: Patient with urothelial carcinoma of the bladder s/p cystectomy with ureterostomy tube in place. He follows predominantly with Oncology at [facility]. Patient had a CT of the abdomen/pelvis with IV contrast performed today which revealed a soft tissue implant identified in the cystectomy bed as well as enlarging retroperitoneal and iliac chain LAD as compared to image from 06/21/22. Findings are most concerning for progression of metastatic disease. CT findings briefly discussed with patient including the possibility that it may indicate a recurrence of his malignancy. Patient also with 3+ blood noted on UA -Will consult Urology and Oncology while patient is admitted (4) Right leg DVT: Plan: Patient with RLE DVT diagnosed 03/2022 at [facility]. He was previously being treated with Eliquis which was discontinued secondary to cost. He was most recently started on Coumadin - thought to be at continued risk for VTE given h/o malignancy and decreased mobility due to ongoing back pain. INR supratherapeutic at 4.6. Patient denies obvious source of blood loss - melena/hematochezia or hematuria. He does have 3+ blood in UA. Has been on Cipro - possibly contributing to supratherapeutic INR -Hold Coumadin for now -Repeat INR in AM (5) Hypertension: Plan: Patient with lower blood pressures in the ER. Currently 94/54. -Hold Lisinopril due to low blood pressure as well as elevated Cr -Continue to monitor (6) Acute hyponatremia: Plan: De=068. Patient without symptoms. He has been given 2L NSS in the ER -Repeat chemistry in AM, monitor Na (7) KEV (acute kidney injury): Plan: Mild elevation of BUN and Cr from baseline. Given NSS x 2L -Avoid nephrotoxic agents -Renal dosing -Repeat chemistry in AM History of Present Illness Chief Complaint: Back pain, abdominal pain Primary Care Provider: Janice Zarco DO Salomón Lopez is a 67yo male with history of invasive, high-grade urothelial carcinoma diagnosed in October 2021. He had transurethral resection of a bladder tumor and neoadjuvant chemotherapy and cystectomy 04/05/2022 performed at [facility] with placement of ureterostomy as well as recent acute DVT presenting with several complaints. Patient reports severe incapacitating low back pain with spasm as well as abdominal discomfort and bladder spasms. He has had occasional subjective fevers and shaking chills. He denies urinary complaints - had mildly decreased and darker UOP noted in his ureterostomy bag over the last day. He has been trying to drink more water. He denies chest pain, palpitations. Has occasional SOB with his pain. No nausea, vomiting, diarrhea. He had some constipation recently. Denies melena, hematochezia, hematuria, bleeding or bruising. Patient was admitted to [facility] from 06/21/22 - 06/27/22 after presenting with abdominal pain, decreased PO intake. Patient was found to have a complicated UTI secondary to enterococcus. He was treated with Zosyn then Daptomycin and was ultimately discharged on Amoxicillin 500mg po TID to complete 10 days of therapy. Patient 's blood cultures remained NEGATIVE. He is currently on Ciprofloxacin 500mg po BID with last dose scheduled for tomorrow. He also had KEV with Cr of 2.28 on arrival (baseline of appx 1.2). Likely secondary to poor oral intake as well as NSAID use. His Cr normalized to 1.13 on day of discharge 06/27/22. Patient also with severe acute on chronic low back pain addressed during this admission - thought to be secondary to lumbar radiculopathy from left L3 nerve impingement. Patient was treated with Dexamethasone as well as Gabapentin, Baclofen, Oxycodone, Tylenol and Voltaren gel. He has been seen by Pain Management in the past and has had radiofrequency ablation performed in 2019. He saw pain management again on 07/07/22 and is to have an epidural steroid injection for acute back pain management - needs to be 2 weeks post completion for his UTI. Additionally patient with DVT diagnosed at [facility] 03/2022. He was previously on Eliquis x 4-6 weeks which was discontinued due to high cie-nl-ewscwl cost. He was treated with a heparin infusion while admitted and discharged on Coumadin anticoagulation. He reports some difficulty with filling his prescriptions after discharge and has been unable to get the ER Oxycodone pills. He was previously on Oxycodone 1 0mg po q 4 hours PRN pain and was discharged on Oxycontin 10mg po BID + Oxycodone 5mg po q 6 hours PRN. Patient unhappy with this regimen and reports he has not been taking the ER oxycodone. In the ER patient afebrile, tachycardic, borderline low blood pressure. No respiratory distress ER Course: NSS x 2L Fentanyl 50mcg Meropenem 500mg IV Dilaudid 1mg + 2mg IV Allergies Allergy/AdvReac Type Severity Reaction Status Date / Time No Known Allergies Allergy Verified 07/07/22 08:20 Home Medications Medication Instructions Recorded Confirmed Type cyanocobalamin (vitamin B-12) 1,000 mcg PO DAILY 06/21/22 07/11/22 History 1,000 mcg tablet (Vitamin B-12) docusate sodium 100 mg tablet 100 mg PO QID PRN Constipation 06/21/22 07/11/22 History (Stool Softener) lisinopril 10 mg tablet 10 mg PO DAILY 06/21/22 07/11/22 History baclofen 10 mg tablet 5 mg PO BID #60 tabs 06/27/22 07/11/22 Rx diclofenac sodium 1 % topical gel 4 g EXT QID #100 grams 06/27/22 07/11/22 Rx (Voltaren Arthritis Pain) gabapentin 300 mg capsule 300 mg PO TID #90 caps 06/27/22 07/11/22 Rx naloxone 4 mg/actuation nasal 1 spray intranasal Q3M sedation/ 06/27/22 07/11/22 Rx spray (Narcan) overdose #2 ea oxycodone 10 mg tablet,crush 10 mg PO BID #60 tabs 06/27/22 07/11/22 Rx resistant,extended release 12 hr (OxyContin) polyethylene glycol 3350 17 gram 17 g PO BID #60 ea 06/27/22 07/11/22 Rx oral powder packet (Miralax) sennosides 8.6 mg tablet (Senokot) 17.2 mg PO QAM #30 tabs 06/27/22 07/11/22 Rx warfarin 5 mg tablet 5 mg PO DAILY@1600 #30 tabs 06/27/22 07/11/22 Rx ciprofloxacin HCl 500 mg tablet 500 mg PO Q12 07/11/22 07/11/22 History oxycodone 5 mg tablet 5 mg PO Q4 PRN severe pain (scale 07/11/22 07/11/22 History score 7-10) Past Med/Surg History Medical History Chronic anticoagulation Hx of bladder cancer 11/2021 Hypertension no meds Left lumbar radiculitis Lumbar spinal stenosis mod-severe worst at L2-3 with severe left NFS Surgical History History of ankle surgery "Left" History of arthroscopy of left shoulder History of shoulder surgery Right x1 Left x3 History of tooth extraction Hx of vasectomy Port-A-Cath in place (12/14/21) Insertion Access Port with Fluoroscopy(Not Applicable) - Keo Peck DO, FACS S/P TURP 11-01-21 Family History Sister Breast cancer Father Hypertension Grandmother Diabetes Aunt Stroke Social History Smoking Status: Never smoker Second Hand Exposure: No; Do You Dip or Chew Tobacco: Yes; Hx Alcohol Use: No Hx Substance Use: No Preferred Language: Occitan Communication Ability: Effective Selling Specialist Required: No Beliefs That Will Affect Care: None marital status: / Current Living Situation: Alone current occupational status: retired Feels Safe at Home: Yes Assistive Devices: None Review of Systems Review of Systems: All systems reviewed & are unremarkable except as noted in HPI & below Physical Exam Physical Exam: General: patient in moderate amount of discomfort from ongoing back pain, NAD, AA&O x 4 Skin: warm, dry, intact, no rashes or lesions HEENT: NC/AT, PERRL, EOMI, anicteric sclera, conjunctiva without injection, external ear normal to inspection and nontender, nares patent, slightly dry mucus membranes, dentition intact, no oropharyngeal lesions, neck supple, trachea midline, no LAD, no thyromegaly, no JVD Heart: +S1/S2, regular, tachycardic, no m/r/g Lungs: equal air entry bilaterally, no rales/rhonchi/wheezes Abd: +BS, soft, tender without rebound/guarding/peritonitis, ureterostomy bag in place with appx 80mL clear/yellow urine, no masses/organomegaly/ascites Ext: warm, 2+ pulses in UE/LE bilaterally, no clubbing/cyanosis or edema Neuro: nonfocal, patient AA&O x 4, speech intact, no facial droop, moving all extremities on command with equal strength 5/5 Results & Data Results & Data Vital Signs (Past 12 Hours) Vital Signs Temp Pulse Resp BP Pulse Ox O2 Del Method 07/11/22 20:35 36.7 C 128 H 22 114/63 98 07/11/22 19:10 119 H 25 H 99 07/11/22 19:04 123 H 22 97 07/11/22 19:04 112/60 07/11/22 18:20 114 H 21 98 07/11/22 18:15 113 H 19 07/11/22 18:21 112 H 07/11/22 16:47 20 97 07/11/22 16:46 94/62 L 07/11/22 16:29 97 Room Air 07/11/22 15:30 36.8 C 125 H 20 102/61 97 Room Air Laboratory Results Laboratory Results WBC 12.56 K/ul (4.8-10.8) H 07/11/22 17:25 RBC 2.55 M/uL (4.70-6.10) L 07/11/22 17:25 Hgb 6.7 g/dl (14.0-18.0) L* 07/11/22 17:25 Hct 21.6 % (42.0-52.0) L 07/11/22 17:25 MCV 84.7 fL (80.0-100.0) 07/11/22 17:25 MCH 26.3 pg (25.0-34.0) 07/11/22 17:25 MCHC 31.0 g/dL (32.0-36.0) L 07/11/22 17:25 RDW Std Deviation 52.9 fL (36.4-46.3) H 07/11/22 17:25 RDW Coeff of Reina 17.1 % (11.5-14.5) H 07/11/22 17: Plt Count 242 K/uL (130-400) 07/11/22 17:25 MPV 10.8 fL (9.4-12.4) 07/11/22 17:25 Immature Gran % (Auto) 1.0 % 07/11/22 17:25 Neut % (Auto) 85.6 % 07/11/22 17:25 Lymph % (Auto) 6.1 % 07/11/22 17:25 [place] % (Auto) 6.9 % 07/11/22 17:25 Eos % (Auto) 0.2 % 07/11/22 17:25 Baso % (Auto) 0.2 % 07/11/22 17:25 Neut # (Auto) 10.75 K/uL (1.40-6.50) H 07/11/22 17:25 Lymph # (Auto) 0.77 K/uL (1.2-3.4) L 07/11/22 17:25 [place] # (Auto) 0.87 K/uL (0.11-0.59) H 07/11/22 17:25 Eos # (Auto) 0.03 K/uL (0-0.50) 07/11/22 17:25 Baso # (Auto) 0.02 K/uL (0-0.2) 07/11/22 17:25 Immature Gran # (Auto) 0.12 K/uL (0.01-0.20) 07/11/22 17:25 RBC Morphology Unremarkable 07/11/22 17:25 PT 45.5 Seconds (9.0-12.0) H 07/11/22 17:25 INR 4.6 (0.9-1.1) H 07/11/22 17:25 Sodium 129 mmol/L (136-145) L 07/11/22 17:25 Potassium 5.0 mmol/L (3.5-5.1) 07/11/22 17:25 Chloride 102 mmol/L (98-107) 07/11/22 17:25 Carbon Dioxide 19 mmol/L (21-32) L 07/11/22 17:25 Anion Gap 8 (3-11) 07/11/22 17:25 BUN 42 mg/dl (6-23) H 07/11/22 17:25 Creatinine 1.65 mg/dl (0.6-1.4) H 07/11/22 17:25 Est Cr Clr Drug Dosing 52.9 ml/min 07/11/22 17:25 Est GFR ( Amer) 48.7 ml/min 07/11/22 17:25 Est GFR (Non-Af Amer) 42.0 ml/min 07/11/22 17:25 BUN/Creatinine Ratio 25.5 (10-20) H 07/11/22 17:25 Glucose 125 mg/dl (70-99(Fasting)) H 07/11/22 17:25 Lactate 1.2 mmol/L (0.4-2.0) 07/11/22 17:25 Calcium 8.8 mg/dl (8.6-10.3) 07/11/22 17:25 Phosphorus 3.5 mg/dl (2.5-4.9) 07/11/22 17:25 Magnesium 1.4 mg/dl (1.7-2.4) L 07/11/22 17:25 Total Bilirubin 0.3 mg/dl (0.2-1.0) 07/11/22 17:25 AST 14 U/L (13-39) 07/11/22 17:25 ALT 16 U/L (7-52) 07/11/22 17:25 Alkaline Phosphatase 125 U/L (34-104) H 07/11/22 17:25 Total Protein 6.5 gm/dl (6.0-8.3) 07/11/22 17:25 Albumin 2.5 gm/dl (3.4-5.0) L 07/11/22 17:25 Globulin 4.0 gm/dl (2.5-4.0) 07/11/22 17:25 Albumin/Globulin Ratio 0.6 (0.9-2) L 07/11/22 17:25 Lipase 15 U/L (11-82) 07/11/22 17:25 Procalcitonin 1.56 ng/ml (0-0.5) H 07/11/22 17:25 Urine Color Dark Yellow 07/11/22 15:47 Urine Appearance Cloudy (Clear) A 07/11/22 15:47 Urine pH 5.5 (4.5-7.5) 07/11/22 15:47 Ur Specific [place] 1.025 (1.000-1.030) 07/11/22 15:47 Urine Protein 1+ (Negative) H 07/11/22 15:47 Urine Glucose (UA) Negative (Negative) 07/11/22 15:47 Urine Ketones Trace (Negative) H 07/11/22 15:47 Urine Blood 3+ (Negative) H 07/11/22 15:47 Urine Nitrite Negative (Negative) 07/11/22 15:47 Urine Bilirubin Negative (Negative) 07/11/22 15:47 Urine Urobilinogen Negative (Negative) 07/11/22 15:47 Ur Leukocyte Esterase Trace (Negative) H 07/11/22 15:47 Urine WBC (Auto) 10-30 /hpf (0-5) H 07/11/22 15:47 Urine RBC (Auto) >30 /hpf (0-4) H 07/11/22 15:47 U Hyaline Cast (Auto) 10-30 /lpf (0-5) H 07/11/22 15:47 U Epithel Cells (Auto) >30 /lpf (0-5) H 07/11/22 15:47 Urine Bacteria (Auto) Negative (Negative) 07/11/22 15:47 Ur Renal Epithelial Cell Not Reportable 07/11/22 15:47 Urine Yeast Not Reportable 07/11/22 15:47 SARS-CoV-2, RNA, NAAT NEGATIVE (NEGATIVE) 07/11/22 19:30 Blood Type A Positive 07/11/22 18:04 Blood Type Recheck A Positive 07/11/22 19:12 Antibody Screen NEGATIVE 07/11/22 18:04 Crossmatch See Detail 07/11/22 18:04 Impressions Abdomen/Pelvis CT 07/11/22 15:35 CT SCAN OF THE ABDOMEN AND PELVIS WITH IV CONTRAST CLINICAL HISTORY: Flank pain COMPARISON STUDY: Abdominal CT dated 06/21/2022. TECHNIQUE: Following the IV administration of 85 cc of Optiray 320, CT scan of the abdomen and pelvis is performed from the lung bases to the proximal femora. Images are reviewed in the axial, sagittal, and coronal planes. IV contrast was administered without complication. A dose lowering technique was utilized adhering to the principles of ALARA. CT DOSE: 1185.13 mGy.cm FINDINGS: Lung bases: The heart is normal in size and without pericardial effusion. There is elevation of the left hemidiaphragm with segmental atelectasis at the left lung base. Scarring/atelectasis is also seen at the right lung base. There is no airspace consolidation typical for pneumonia or pleural effusion. Liver: The contrast-enhanced liver is normal in size, contour, and attenuation. There is no intrahepatic biliary ductal dilatation. The hepatic veins and portal veins are patent. Gallbladder: The gallbladder is distended but otherwise normal in appearance. Spleen: Normal in size and attenuation. Pancreas: Moderately atrophic and grossly unremarkable. Adrenal glands: Unremarkable. Kidneys: The contrast enhanced kidneys are normal in size. There is mild to moderate left hydroureteronephrosis. The left ureter is dilated into the pelvis. No hydronephrosis is seen on the right. An extrarenal pelvis is noted on the right. There is heterogeneous enhancement of the left kidney with mild left- sided perinephric stranding. Urothelial thickening or enhancement is seen within the left ureter with surrounding infiltration. Abdominal vasculature: The abdominal aorta is normal in course and caliber noting mild to moderate atherosclerotic calcification. Lymphadenopathy encases and at least mildly narrows the left iliac vein. Bowel: There is moderate colonic fecal retention. No bowel obstruction is seen. 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 There is mild rectal wall thickening. The appendix is well-visualized and normal. Peritoneum: There is no intraperitoneal free air or abdominal ascites. A midline surgical scar is noted. There is a fat-containing umbilical hernia. Lymphadenopathy: There is bulky retroperitoneal and iliac chain lymphadenopathy. This has progressed as compared to 06/21/2022. There is mild surrounding infiltration. A left periaortic node on image #205 measures 3.2 x 1.7 cm (previously measured 2.3 x 1.5 cm). A left iliac chain node on image #262 measures 3.1 x 2.4 cm, and a left external iliac chain node on image #300 nighat ures 2.3 x 1.8 cm. A 13 mm cystic focus along the left external iliac chain on image heterogeneity is unchanged and may represent a tiny inclusion cyst. Pelvic viscera: The bladder and prostate are surgically absent. A 4.2 x 2.9 cm soft tissue implant is identified in the cystectomy bed on image #367. An 11 mm implant in the posterior pelvis on image 03/10/2022 is new from previous. Skeletal structures: The skeletal structures are osteopenic. There is mild to moderate lumbosacral spondylosis. No lytic or blastic lesions are seen. IMPRESSION: 1. There is postoperative change from cystectomy and prostatectomy with right lower quadrant urostomy. 2. There is [id number] left hydroureteronephrosis. Urothelial thickening and enhancement is seen in the left ureter, and there is heterogeneous enhancement of the left kidney with mild surrounding infiltration. Correlate with clinical findings and urinalysis for evidence of ascending infection/pyelonephritis. 3. No hydronephrosis is seen on the right. 4. Moderate constipation. 5. There is circumferential rectal wall thickening. Correlate clinical for evidence of a nonspecific proctitis. 6. There is a large soft tissue implant identified in the cystectomy bed. Additionally, there is enlarging retroperitoneal and iliac chain lymphadenopathy as compared to 06/21/2022. These findings indicate progression of metastatic disease. 7. Additional findings as above. ACT 112: Negative or not required by law. Electronically signed by: Buddy Bernal M.D. 07/11/2022 7:06 PM ECG Additional Comments: Ordered - not yet performed Code Status & VTE Plan VTE Prophylaxis Plan VTE Prophylaxis will be ordered: Yes PG Care Time/CCT Total # of Minutes Spent Total Time Spent with Patient: Total time spent is greater than 50% in coordination of care (as documented) at patient's floor/unit and/or counseling patient: Coding Level of Care Code 79119 INT INP/OBS CARE 3/75MIN Diagnoses Anemia requiring transfusions D64.9 Complicated urinary tract infection N39.0 Urothelial carcinoma of bladder C67.9 Right leg DVT I82.401 Hypertension I10 Acute hyponatremia E87.1 KEV (acute kidney injury) N17.9
[2022-07-11] MEDS ORDERED: HYDROmorphone INJ 2 MG/ML SYR/VIAL IV STA (21:14)
[2022-07-11] MEDS ORDERED: NALOXONE NASAL SPRAY 4 MG ER HOMEPACK PRN (22:20)
[2022-07-11] MEDS ORDERED: HYDROmorphone INJ 0.5 MG/0.5 ML SYR IV PRN (22:20)
[2022-07-11 22:41] LABS: Magnesium 1.4 mg/dl (1.7-2.4); Phosphorus 3.5 mg/dl (2.5-4.9)
[2022-07-11 22:47] LABS: INR 4.6 (0.9-1.1); Prothrombin Time 45.5 Seconds (9.0-12.0)
[2022-07-11] MEDS ORDERED: NALOXONE HCL 0.4 MG/1 ML VIAL/CARP IV PRN (23:02)
[2022-07-11] MEDS: ACETAMINOPHEN 500 MG TAB PO SCH (23:34)
[2022-07-11] MEDS: MAGNESIUM SULFATE / D5W 1 GM/100 ML BAG IV SCH (23:34)
[2022-07-11] MEDS: GABAPENTIN 300 MG CAP PO SCH (23:35)
[2022-07-11] MEDS: BACLOFEN 10 MG TAB PO SCH (23:36)
[2022-07-11 23:37] LABS: Acetaminophen < 3 ug/ml (10-30); Salicylate < 3.0 mg/dl (3.0-30)
[2022-07-11] MEDS: POLYETHYLENE (MIRALAX) 17 GM PACK PO SCH (23:38)
[2022-07-11] MEDS: oxyCODONE HCL 10 MG TABCR (OxyCONTIN) PO SCH (23:38)
[2022-07-12] MEDS: MAGNESIUM SULFATE / D5W 1 GM/100 ML BAG IV SCH (01:19)
[2022-07-12] MEDS: MEROPENEM 500 MG in SYRINGE 0 ML IV SCH ×3 (02:48→16:56)
[2022-07-12] MEDS: HYDROmorphone INJ 0.5 MG/0.5 ML SYR IV PRN ×6 (02:53→23:07)
[2022-07-12] MEDS: DICLOFENAC SOD 1% GEL 100 GM TUBE EXT PRN ×2 (05:41→08:38)
--- NOTE | 2022-07-12 07:44 | Oncology Consultation ---
Date of Consultation July 12, 2022 Assessment & Plan (1) Urothelial carcinoma of bladder: (2) KEV (acute kidney injury): (3) Complicated urinary tract infection: Plan Gentleman with urothelial carcinoma of the bladder for which he is s/p neoadjuvant systemic chemotherapy treatment followed by cystectomy and adjuvant immunotherapy treatment with nivolumab. Presented with lower back pain. Labs significant for anemia of unclear etiology. Based on anemia studies, he appears to have anemia of chronic disease/inflammation as well as iron deficiency anemia. Received IV iron during his last hospitalization.Recent imaging findings concerning for disease progression. Results of scans discussed with patient and his daughters. -Recommend bone scan to rule out bone metastasis in the setting of worsening lower back pain -FOBT to evaluate for GI bleed -We will arrange for outpatient PET/CT to assess extent of disease -Also obtain molecular testing on tumor sample to see if he may be a candidate for targeted treatment -Recommend palliative care involvement for pain management as well as goals of care discussion Thank you for this consult. Oncology will continue following while patient is in hospital. Please feel free to call if you have any further questions History of Present Illness Reason for Consultation: Anemia and history of bladder cancer Attending Physician: Mukul Hernandes MD History of Present Illness Mr. Lopez is a pleasant gentleman with history of stage II muscle invasive bladder cancer for which he is s/p 4 cycles of neoadjuvant systemic chemotherapy with gemcitabine/cisplatin completed on 02/24/2022. On 04/05/2022 he underwent radical cystoprostatectomy, bilateral pelvic lymph node dissection and ilieal conduit urinary diversion performed by Dr. Lyman at [facility]. Pathology revealed ypT2 pN0 high-grade urothelial carcinoma with involvement of prostatic stroma, negative margins as well as pN2 N0 Primo 4+3=7 adenocarcinoma of the prostate. Postoperatively, he developed enterococcal sepsis for which he required IV antibiotics. Also diagnosed with DVT for which he was placed on Eliquis which he remains on at this time. He was discharged from [facility] after about 11 days of inpatient hospitalization.He was subsequently switched to Coumadin due to high co-pay of Eliquis. Due to residual disease, recommended adjuvant nivolumab which was started on 06/06/2022. Patient has had multiple issues since his surgery including persistent anemia for which he has undergone extensive work-up which revealed B12 deficiency, anemia of chronic disease/inflammation as well as mild iron deficiency. He was started on B12 and oral iron supplementation. More recently, he has been complaining of significant back pain for which he was prescribed oxycodone. Was also recently discharged from [facility] after being admitted for UTI. 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 He was started on ciprofloxacin last week. Patient presented to [facility] with worsening lower back pain, abdominal discomfort and chills. Labs revealed worsening anemia with hemoglobin of 6.7 and hematocrit of 21.6. INR was also noted to be supratherapeutic at 4.6. CT abdomen and pelvis revealed postoperative change from cystectomy and prostatectomy with right lower quadrant urostomy, mild to moderate left hydroureteronephrosis, urothelial thickening and enhancement in the left ureter with heterogeneous enhancement of the left kidney with mild surrounding infiltration concerning for ascending infection/pyelonephritis, circumferential rectal wall thickening and large soft tissue implant in the cystectomy bed as well as enlarging retroperitoneal and iliac chain lymphadenopathy concerning for progressive disease. Allergies Allergy/AdvReac Type Severity Reaction Status Date / Time No Known Allergies Allergy Verified 07/07/22 08:20 Home Medications Medication Instructions Recorded Confirmed Type cyanocobalamin (vitamin B-12) 1,000 mcg PO DAILY 06/21/22 07/11/22 History 1,000 mcg tablet (Vitamin B-12) docusate sodium 100 mg tablet 100 mg PO QID PRN Constipation 06/21/22 07/11/22 History (Stool Softener) lisinopril 10 mg tablet 10 mg PO DAILY 06/21/22 07/11/22 History baclofen 10 mg tablet 5 mg PO BID #60 tabs 06/27/22 07/11/22 Rx diclofenac sodium 1 % topical gel 4 g EXT QID #100 grams 06/27/22 07/11/22 Rx (Voltaren Arthritis Pain) gabapentin 300 mg capsule 300 mg PO TID #90 caps 06/27/22 07/11/22 Rx naloxone 4 mg/actuation nasal 1 spray intranasal Q3M sedation/ 06/27/22 07/11/22 Rx spray (Narcan) overdose #2 ea oxycodone 10 mg tablet,crush 10 mg PO BID #60 tabs 06/27/22 07/11/22 Rx resistant,extended release 12 hr (OxyContin) polyethylene glycol 3350 17 gram 17 g PO BID #60 ea 06/27/22 07/11/22 Rx oral powder packet (Miralax) sennosides 8.6 mg tablet (Senokot) 17.2 mg PO QAM #30 tabs 06/27/22 07/11/22 Rx warfarin 5 mg tablet 5 mg PO DAILY@1600 #30 tabs 06/27/22 07/11/22 Rx ciprofloxacin HCl 500 mg tablet 500 mg PO Q12 07/11/22 07/11/22 History oxycodone 5 mg tablet 5 mg PO Q4 PRN severe pain (scale 07/11/22 07/11/22 History score 7-10) Patient History Medical History Chronic anticoagulation Hx of bladder cancer 11/2021 Hypertension no meds Left lumbar radiculitis Lumbar spinal stenosis mod-severe worst at L2-3 with severe left NFS Surgical History History of ankle surgery "Left" History of arthroscopy of left shoulder History of shoulder surgery Right x1 Left x3 History of tooth extraction Hx of vasectomy Port-A-Cath in place (12/14/21) Insertion Access Port with Fluoroscopy(Not Applicable) - Keo Peck DO, FACS S/P NATASHA 11-01-21 Family History Sister Breast cancer Father Hypertension Grandmother Diabetes Aunt Stroke Social History Smoking Status: Never smoker Second Hand Exposure: No; Do You Dip or Chew Tobacco: Yes; Hx Alcohol Use: No Hx Substance Use: No Preferred Language: Sami Communication Ability: Effective Loan Adviser Required: No Beliefs That Will Affect Care: None marital status: / Current Living Situation: Alone current occupational status: retired Other Information That Helps Us Care for You: No Feels Safe at Home: Yes Safety Concerns: Feels Safe At This Time Assistive Devices: None Review of Systems Review of Systems: All systems reviewed & are unremarkable except as noted in Subjective Results & Data Vital Signs (Past 12 Hours) Vital Signs Temp Pulse Pulse Pulse Resp BP BP 07/11/22 22:21 123 H 07/12/22 03:00 36.6 C 94 H 18 93/57 L 07/12/22 01:16 36.9 C 98 H 18 94/56 L 07/12/22 01:10 36.9 C 100 H 18 103/62 07/12/22 00:10 36.9 C 107 H 18 94/57 L 07/11/22 22:30 07/11/22 22:30 37.3 C 124 H 18 115/65 07/11/22 23:45 36.5 C 107 H 18 93/58 L 07/11/22 23:30 37.3 C 108 H 18 92/57 L 07/11/22 23:08 36.7 C 114 H 18 94/54 L 07/11/22 22:36 37.2 C 119 H 18 93/56 L 07/11/22 21:57 117 H 20 83/49 L 07/11/22 21:38 36.8 C 117 H 20 83/57 L 07/11/22 21:08 36.7 C 123 H 20 102/55 L 07/11/22 20:53 37.1 C 131 H 20 126/69 07/11/22 20:35 36.7 C 128 H 22 114/63 Pulse Ox O2 Del Method 07/11/22 22:21 07/12/22 03:00 95 Room Air 07/12/22 01:16 96 07/12/22 01:10 96 07/12/22 00:10 95 07/11/22 22:30 Room Air 07/11/22 22:30 96 Room Air 07/11/22 23:45 96 07/11/22 23:30 96 07/11/22 23:08 98 07/11/22 22:36 96 07/11/22 21:57 98 Room Air 07/11/22 21:38 93 07/11/22 21:08 95 07/11/22 20:53 98 07/11/22 20:35 98
--- NOTE | 2022-07-12 07:52 | Hospitalist Progress Note ---
Date of Service July 12, 2022 Assessment & Plan (1) Anemia requiring transfusions: Plan: Patient with symptomatic anemia - Hgb=6.7, Hct=21.6. Unclear source although urinary is most likely given his medical history, 3+ blood on UA and dc on coumadin due to cost issues w/ prior Eliquis use x2 months for R leg DVT s/p surgery for bladder ca s/p 2 u PRBC for hgb 6.7 Repeat hgb improved to 8.3 (prior copious ibuprofen use noted) Iron panel added, but to labs after he received blood, so not as helpful Holding coumadin, cipro use for UTI likely elevated -- INR 4.1 on AM labs from 4.6. No bleeding reported. Fecal occult ordered for completeness CTAP on admit w/ concerns for metastatic disease Urology/hematology oncology on consult MAIN ISSUE FOR PATIENT IS PAIN CONTROL Obtaining bone scan for eval metastatic disease, Dr Coon arranging for outpatient PET scan. Consultation placed for palliative for pain control -- ordered as needed oxycodone 10mg as taking at home. IV dose x 1 now Dilaudid provided in meantime. Had NOT been taking the long acting pain medications and does not appear to really want to do long acting either. Continued discussions required Will also need CM assistance for $$ for medications Monitor CBC/INR in AM (2) Back pain: Plan: did not fill extended release OxyContin, using prn oxycodone ordered IV dose dilaudid in meantime, resumed his oxycodone but 10mg q4h prn and will monitor needs xray lumbar/hip unimpressive but obtaining bone scan given hx bladder ca/progression of disease for further eval. heme/onc on consult PT/OT consultation (3) Complicated urinary tract infection: Plan: Patient with recent UTI -culture from 07/04/22 POSITIVE for Enterobacter cloacae. Prior urine culture from 06/22/22 POSITIVE for Enterobacter faecalis. Patient has been on Ciprofloxacin with last dose 07/12/22. CT of the abdomen with [id number] left hydroureteronephrosis with urothelial thickening and enhancement in the left ureter as well as heterogenous enhancement of the left kidney with mild surrounding infiltration. UA does not strongly support infection at this time - trace LE, 10-30WBCs with >30 RBCs and Negative bacteria. He does have leukocytosis and elevated procalcitonin which support infection. He has received meropenem in the ER and will continue Consider d/c after 48 hours if cultures remain no growth Urology consulted as above (4) Urothelial carcinoma of bladder: Plan: Patient with urothelial carcinoma of the bladder s/p cystectomy with ureterostomy tube in place. He follows predominantly with Oncology at [facility]. Patient had a CT of the abdomen/pelvis with IV contrast performed today which revealed a soft tissue implant identified in the cystectomy bed as well as enlarging retroperitoneal and iliac chain LAD as compared to image from 06/21/22. Findings are most concerning for progression of metastatic disease. CT findings briefly discussed with patient including the possibility that it may indicate a recurrence of his malignancy. Patient also with 3+ blood noted on UA Will consult Urology and Oncology while patient is admitted as above -- appreciate recs/assistance (5) Right leg DVT: Plan: Patient with [place] D[place] [facility] [place] was previously being treated with Eliquis which was discontinued secondary to cost. He was most recently started on Coumadin - thought to be at continued risk for VTE given h/o malignancy and decreased mobility due to ongoing back pain. INR supratherapeutic at 4.6. Patient denies obvious source of blood loss - melena/hematochezia or hematuria. He does have 3+ blood in UA. Has been on Cipro - possibly contributing to supratherapeutic INR -Hold Coumadin for now as INR still elevated to 4.1 Monitor INR in AM but would not resume unless <3.5 and could use lovenox to bridge if needed/drops (6) Hypertension: Plan: Patient with lower blood pressures in the ER Stable currently, lisinopril on hold for elevated Cr on admit 1.65 which has improved to 1.06 on repeat Consider resuming lisinopril in AM BPs controlled (7) Acute hyponatremia: Plan: Ul=982. Patient without symptoms s/p 2L NSS in ER --> repeat 133, suspect also aspect of pain related BMP in AM (8) KEV (acute kidney injury): Plan: Mild elevation of BUN and Cr from baseline. Given NSS x 2L KEV resolved on repeat labs Renal dose meds/avoid nephroxins Consider resuming lisinopril in AM Plan continued inpatient stay Dr Coon to discuss w/ patient's daughter this afternoon bone scan ordered for further eval given concerns metastatic disease, outpatient PET Palliative on consult for pain control -- to see in AM CM to follow for $$ assistance for meds at [place] to ensure no issues Admission and Anticipated Discharge Date Admission Date: July 11, 2022 Supervising Physician Co-Signing Physician Notes The patient was not seen by me. The chart was reviewed. Case discussed with JUMANA Foster. Agree with assessment and plan Subjective eval aorund lunch, pain creeping up. given IV this morning but long acting (which he did not get and was only given the 1-2 tablets as needed but taking 10mg at a time and only half rx). Issues w/ $$ and rx refills. Will alert CM. Said urology stopped by for social visit but stated nothing for them w/ current situation. Discussed concerns for progression of his cancer given findings in the bladder/mass in site of cystectomy. He has been having worsening lower back pain and right hip pain, worse pain w/ ambulation. Noted he hadn't been very active w/ prior pain control in hospital and thought maybe he should have moved around more to see if that regimen was going to work. Voiced extreme disguist at prior provider who discharged him but praised Dr Soto for thorough explanations. Discussed will order dose IV meds now, making PO option available q4h. Dr Coon to also see. Denies any blood in urine or stool, checking fecal occult for completeness. Prior heavy ibuprofen use but hasn't in about the last month. He is aware concerns for progression of malignancy. Physical Exam Physical Exam: General: WD male sitting up at side of bed on phone to friend, NAD but reporting increased pain w movement HEENT: head normocephalic, atraumatic, mmm, trachea midline Resp: CTA, slightly diminished in the bases, on room air CV: rrr (slightly tachy to low 100/110s at times), no significant m/r/g, no pitting edema GI: +BS, soft/NT, urostomy bag w/ yellow urine MSK/Neuro: tender to palpation lumbar spine/paraspinal muscles strength equal bilaterally Psych: AOx3, cooperative with exam but frustrated at possible news cancer is back/progressed Results & Data Results & Data Vital Signs (Past 12 Hours) Vital Signs Temp Pulse Pulse Pulse Resp BP BP 07/11/22 22:21 123 H 07/12/22 03:00 36.6 C 94 H 18 93/57 L 07/12/22 01:16 36.9 C 98 H 18 94/56 L 07/12/22 01:10 36.9 C 100 H 18 103/62 07/12/22 00:10 36.9 C 107 H 18 94/57 L 07/11/22 22:30 07/11/22 22:30 37.3 C 124 H 18 115/65 07/11/22 23:45 36.5 C 107 H 18 93/58 L 07/11/22 23:30 37.3 C 108 H 18 92/57 L 07/11/22 23:08 36.7 C 114 H 18 94/54 L 07/11/22 22:36 37.2 C 119 H 18 93/56 L 07/11/22 21:57 117 H 20 83/49 L 07/11/22 21:38 36.8 C 117 H 20 83/57 L 07/11/22 21:08 36.7 C 123 H 20 102/55 L 07/11/22 20:53 37.1 C 131 H 20 126/69 07/11/22 20:35 36.7 C 128 H 22 114/63 Pulse Ox O2 Del Method 07/11/22 22:21 07/12/22 03:00 95 Room Air 07/12/22 01:16 96 07/12/22 01:10 96 07/12/22 00:10 95 07/11/22 22:30 Room Air 07/11/22 22:30 96 Room Air 07/11/22 23:45 96 07/11/22 23:30 96 07/11/22 23:08 98 07/11/22 22:36 96 07/11/22 21:57 98 Room Air 07/11/22 21:38 93 07/11/22 21:08 95 07/11/22 20:53 98 07/11/22 20:35 98 Laboratory Results 07/12/22 07/12/22 07/12/22 Range/Units 08:47 08:47 08:37 WBC (4.8-10.8) K/ul RBC (4.70-6.10) M/uL Hgb (14.0-18.0) g/dl Hct (42.0-52.0) % MCV (80.0-100.0) fL MCH (25.0-34.0) pg MCHC (32.0-36.0) g/dL RDW Std Deviation (36.4-46.3) fL RDW Coeff of Reina (11.5-14.5) % Plt Count (130-400) K/uL MPV (9.4-12.4) fL Immature Gran % (Auto) % Neut % (Auto) % Lymph % (Auto) % [place] % (Auto) % Eos % (Auto) % Baso % (Auto) % Reticulocyte % (Auto) (0.5-2.0) % Neut # (Auto) (1.40-6.50) K/uL Lymph # (Auto) (1.2-3.4) K/uL [place] # (Auto) (0.11-0.59) K/uL Eos # (Auto) (0-0.50) K/uL Baso # (Auto) (0-0.2) K/uL Reticulocyte # (0.02-0.10) 10^6/uL Immature Gran # (Auto) (0.01-0.20) K/uL RBC Morphology Peripher Smr Path Cons PT (9.0-12.0) Seconds INR (0.9-1.1) Sodium 133 L (136-145) mmol/L Potassium 4.8 (3.5-5.1) mmol/L Chloride 106 (98-107) mmol/L Carbon Dioxide 20 L (21-32) mmol/L Anion Gap 7 (3-11) BUN 27 H (6-23) mg/dl Creatinine 1.06 D (0.6-1.4) mg/dl Est Cr Clr Drug Dosing 82.6 ml/min Est GFR ( Amer) 83.2 ml/min Est GFR (Non-Af Amer) 71.8 ml/min BUN/Creatinine Ratio 25.5 H (10-20) Glucose 155 H (70-99(Fasting)) mg/dl Lactate (0.4-2.0) mmol/L Calcium 9.6 (8.6-10.3) mg/dl Phosphorus (2.5-4.9) mg/dl Magnesium 1.8 (1.7-2.4) mg/dl Iron Cancelled 20 L (35-175) mcg/dl TIBC Cancelled 123 L (250-450) mcg/dl Unsaturated IBC Cancelled 103 L (155-355) mcg/dl Transferrin % Sat Cancelled 16 L (20-50) % Ferritin Cancelled Pending Total Bilirubin 0.4 (0.2-1.0) mg/dl Direct Bilirubin 0.1 (0-0.2) mg/dl AST 14 (13-39) U/L ALT 16 (7-52) U/L Alkaline Phosphatase 115 H (34-104) U/L Lactate Dehydrogenase 113 (86-244) U/L Total Protein 6.6 (6.0-8.3) gm/dl Albumin 2.6 L (3.4-5.0) gm/dl Globulin (2.5-4.0) gm/dl Albumin/Globulin Ratio (0.9-2) Lipase (11-82) U/L Procalcitonin (0-0.5) ng/ml Urine Color Urine Appearance (Clear) Urine pH (4.5-7.5) Ur Specific [place] (1.000-1.030) Urine Protein (Negative) Urine Glucose (UA) (Negative) Urine Ketones (Negative) Urine Blood (Negative) Urine Nitrite (Negative) Urine Bilirubin (Negative) Urine Urobilinogen (Negative) Ur Leukocyte Esterase (Negative) Urine WBC (Auto) (0-5) /hpf Urine RBC (Auto) (0-4) /hpf U Hyaline Cast (Auto) (0-5) /lpf U Epithel Cells (Auto) (0-5) /lpf Urine Bacteria (Auto) (Negative) Ur Renal Epithelial Cell Urine Yeast Salicylates (3.0-30) mg/dl Acetaminophen (10-30) ug/ml SARS-CoV-2, RNA, NAAT (NEGATIVE) Blood Type Blood Type Recheck Antibody Screen Crossmatch 07/12/22 07/12/22 07/12/22 Range/Units 08:37 08:37 08:37 WBC 11.79 H (4.8-10.8) K/ul RBC 3.12 L (4.70-6.10) M/uL Hgb 8.3 L (14.0-18.0) g/dl Hct 26.2 L (42.0-52.0) % MCV 84.0 (80.0-100.0) fL MCH 26.6 (25.0-34.0) pg MCHC 31.7 L (32.0-36.0) g/dL RDW Std Deviation 51.8 H (36.4-46.3) fL RDW Coeff of Reina 16.9 H (11.5-14.5) % Plt Count 236 (130-400) K/uL MPV 10.3 (9.4-12.4) fL Immature Gran % (Auto) % Neut % (Auto) % Lymph % (Auto) % [place] % (Auto) % Eos % (Auto) % Baso % (Auto) % Reticulocyte % (Auto) 0.8 (0.5-2.0) % Neut # (Auto) (1.40-6.50) K/uL Lymph # (Auto) (1.2-3.4) K/uL [place] # (Auto) (0.11-0.59) K/uL Eos # (Auto) (0-0.50) K/uL Baso # (Auto) (0-0.2) K/uL Reticulocyte # 0.03 (0.02-0.10) 10^6/uL Immature Gran # (Auto) (0.01-0.20) K/uL RBC Morphology Peripher Smr Path Cons Pending PT 41.3 H (9.0-12.0) Seconds INR 4.1 H (0.9-1.1) Sodium (136-145) mmol/L Potassium (3.5-5.1) mmol/L Chloride (98-107) mmol/L Carbon Dioxide (21-32) mmol/L Anion Gap (3-11) BUN (6-23) mg/dl Creatinine (0.6-1.4) mg/dl Est Cr Clr Drug Dosing ml/min Est GFR ( Amer) ml/min Est GFR (Non-Af Amer) ml/min BUN/Creatinine Ratio (10-20) Glucose (70-99(Fasting)) mg/dl Lactate (0.4-2.0) mmol/L Calcium (8.6-10.3) mg/dl Phosphorus (2.5-4.9) mg/dl Magnesium (1.7-2.4) mg/dl Iron (35-175) mcg/dl TIBC (250-450) mcg/dl Unsaturated IBC (155-355) mcg/dl Transferrin % Sat (20-50) % Ferritin Total Bilirubin (0.2-1.0) mg/dl Direct Bilirubin (0-0.2) mg/dl AST (13-39) U/L ALT (7-52) U/L Alkaline Phosphatase (34-104) U/L Lactate Dehydrogenase (86-244) U/L Total Protein (6.0-8.3) gm/dl Albumin (3.4-5.0) gm/dl Globulin (2.5-4.0) gm/dl Albumin/Globulin Ratio (0.9-2) Lipase (11-82) U/L Procalcitonin (0-0.5) ng/ml Urine Color Urine Appearance (Clear) Urine pH (4.5-7.5) Ur Specific [place] (1.000-1.030) Urine Protein (Negative) Urine Glucose (UA) (Negative) Urine Ketones (Negative) Urine Blood (Negative) Urine Nitrite (Negative) Urine Bilirubin (Negative) Urine Urobilinogen (Negative) Ur Leukocyte Esterase (Negative) Urine WBC (Auto) (0-5) /hpf Urine RBC (Auto) (0-4) /hpf U Hyaline Cast (Auto) (0-5) /lpf U Epithel Cells (Auto) (0-5) /lpf Urine Bacteria (Auto) (Negative) Ur Renal Epithelial Cell Urine Yeast Salicylates (3.0-30) mg/dl Acetaminophen (10-30) ug/ml SARS-CoV-2, RNA, NAAT (NEGATIVE) Blood Type Blood Type Recheck Antibody Screen Crossmatch 07/11/22 07/11/22 07/11/22 Range/Units 22:44 19:30 19:12 WBC (4.8-10.8) K/ul RBC (4.70-6.10) M/uL Hgb (14.0-18.0) g/dl Hct (42.0-52.0) % MCV (80.0-100.0) fL MCH (25.0-34.0) pg MCHC (32.0-36.0) g/dL RDW Std Deviation (36.4-46.3) fL RDW Coeff of Reina (11.5-14.5) % Plt Count (130-400) K/uL MPV (9.4-12.4) fL Immature Gran % (Auto) % Neut % (Auto) % Lymph % (Auto) % [place] % (Auto) % Eos % (Auto) % Baso % (Auto) % Reticulocyte % (Auto) (0.5-2.0) % Neut # (Auto) (1.40-6.50) K/uL Lymph # (Auto) (1.2-3.4) K/uL [place] # (Auto) (0.11-0.59) K/uL Eos # (Auto) (0-0.50) K/uL Baso # (Auto) (0-0.2) K/uL Reticulocyte # (0.02-0.10) 10^6/uL Immature Gran # (Auto) (0.01-0.20) K/uL RBC Morphology Peripher Smr Path Cons PT (9.0-12.0) Seconds INR (0.9-1.1) Sodium (136-145) mmol/L Potassium (3.5-5.1) mmol/L Chloride (98-107) mmol/L Carbon Dioxide (21-32) mmol/L Anion Gap (3-11) BUN (6-23) mg/dl Creatinine (0.6-1.4) mg/dl Est Cr Clr Drug Dosing ml/min Est GFR ( Amer) ml/min Est GFR (Non-Af Amer) ml/min BUN/Creatinine Ratio (10-20) Glucose (70-99(Fasting)) mg/dl Lactate (0.4-2.0) mmol/L Calcium (8.6-10.3) mg/dl Phosphorus (2.5-4.9) mg/dl Magnesium (1.7-2.4) mg/dl Iron (35-175) mcg/dl TIBC (250-450) mcg/dl Unsaturated IBC (155-355) mcg/dl Transferrin % Sat (20-50) % Ferritin Total Bilirubin (0.2-1.0) mg/dl Direct Bilirubin (0-0.2) mg/dl AST (13-39) U/L ALT (7-52) U/L Alkaline Phosphatase (34-104) U/L Lactate Dehydrogenase (86-244) U/L Total Protein (6.0-8.3) gm/dl Albumin (3.4-5.0) gm/dl Globulin (2.5-4.0) gm/dl Albumin/Globulin Ratio (0.9-2) Lipase (11-82) U/L Procalcitonin (0-0.5) ng/ml Urine Color Urine Appearance (Clear) Urine pH (4.5-7.5) Ur Specific [place] (1.000-1.030) Urine Protein (Negative) Urine Glucose (UA) (Negative) Urine Ketones (Negative) Urine Blood (Negative) Urine Nitrite (Negative) Urine Bilirubin (Negative) Urine Urobilinogen (Negative) Ur Leukocyte Esterase (Negative) Urine WBC (Auto) (0-5) /hpf Urine RBC (Auto) (0-4) /hpf U Hyaline Cast (Auto) (0-5) /lpf U Epithel Cells (Auto) (0-5) /lpf Urine Bacteria (Auto) (Negative) Ur Renal Epithelial Cell Urine Yeast Salicylates < 3.0 L (3.0-30) mg/dl Acetaminophen < 3 L (10-30) ug/ml SARS-CoV-2, RNA, NAAT NEGATIVE (NEGATIVE) Blood Type Blood Type Recheck A Positive Antibody Screen Crossmatch 07/11/22 07/11/22 07/11/22 Range/Units 18:04 17:25 17:25 WBC (4.8-10.8) K/ul RBC (4.70-6.10) M/uL Hgb (14.0-18.0) g/dl Hct (42.0-52.0) % MCV (80.0-100.0) fL MCH (25.0-34.0) pg MCHC (32.0-36.0) g/dL RDW Std Deviation (36.4-46.3) fL RDW Coeff of Reina (11.5-14.5) % Plt Count (130-400) K/uL MPV (9.4-12.4) fL Immature Gran % (Auto) % Neut % (Auto) % Lymph % (Auto) % [place] % (Auto) % Eos % (Auto) % Baso % (Auto) % Reticulocyte % (Auto) (0.5-2.0) % Neut # (Auto) (1.40-6.50) K/uL Lymph # (Auto) (1.2-3.4) K/uL [place] # (Auto) (0.11-0.59) K/uL Eos # (Auto) (0-0.50) K/uL Baso # (Auto) (0-0.2) K/uL Reticulocyte # (0.02-0.10) 10^6/uL Immature Gran # (Auto) (0.01-0.20) K/uL RBC Morphology Peripher Smr Path Cons PT 45.5 H (9.0-12.0) Seconds INR 4.6 H (0.9-1.1) Sodium (136-145) mmol/L Potassium (3.5-5.1) mmol/L Chloride (98-107) mmol/L Carbon Dioxide (21-32) mmol/L Anion Gap (3-11) BUN (6-23) mg/dl Creatinine (0.6-1.4) mg/dl Est Cr Clr Drug Dosing ml/min Est GFR ( Amer) ml/min Est GFR (Non-Af Amer) ml/min BUN/Creatinine Ratio (10-20) Glucose (70-99(Fasting)) mg/dl Lactate 1.2 (0.4-2.0) mmol/L Calcium (8.6-10.3) mg/dl Phosphorus (2.5-4.9) mg/dl Magnesium (1.7-2.4) mg/dl Iron (35-175) mcg/dl TIBC (250-450) mcg/dl Unsaturated IBC (155-355) mcg/dl Transferrin % Sat (20-50) % Ferritin Total Bilirubin (0.2-1.0) mg/dl Direct Bilirubin (0-0.2) mg/dl AST (13-39) U/L ALT (7-52) U/L Alkaline Phosphatase (34-104) U/L Lactate Dehydrogenase (86-244) U/L Total Protein (6.0-8.3) gm/dl Albumin (3.4-5.0) gm/dl Globulin (2.5-4.0) gm/dl Albumin/Globulin Ratio (0.9-2) Lipase (11-82) U/L Procalcitonin (0-0.5) ng/ml Urine Color Urine Appearance (Clear) Urine pH (4.5-7.5) Ur Specific [place] (1.000-1.030) Urine Protein (Negative) Urine Glucose (UA) (Negative) Urine Ketones (Negative) Urine Blood (Negative) Urine Nitrite (Negative) Urine Bilirubin (Negative) Urine Urobilinogen (Negative) Ur Leukocyte Esterase (Negative) Urine WBC (Auto) (0-5) /hpf Urine RBC (Auto) (0-4) /hpf U Hyaline Cast (Auto) (0-5) /lpf U Epithel Cells (Auto) (0-5) /lpf Urine Bacteria (Auto) (Negative) Ur Renal Epithelial Cell Urine Yeast Salicylates (3.0-30) mg/dl Acetaminophen (10-30) ug/ml SARS-CoV-2, RNA, NAAT (NEGATIVE) Blood Type A Positive Blood Type Recheck Antibody Screen NEGATIVE Crossmatch See Detail 07/11/22 07/11/22 07/11/22 Range/Units 17:25 17:25 17:25 WBC 12.56 H (4.8-10.8) K/ul RBC 2.55 L (4.70-6.10) M/uL Hgb 6.7 L* (14.0-18.0) g/dl Hct 21.6 L (42.0-52.0) % MCV 84.7 (80.0-100.0) fL MCH 26.3 (25.0-34.0) pg MCHC 31.0 L (32.0-36.0) g/dL RDW Std Deviation 52.9 H (36.4-46.3) fL RDW Coeff of Reina 17.1 H (11.5-14.5) % Plt Count 242 (130-400) K/uL MPV 10.8 (9.4-12.4) fL Immature Gran % (Auto) 1.0 % Neut % (Auto) 85.6 % Lymph % (Auto) 6.1 % [place] % (Auto) 6.9 % Eos % (Auto) 0.2 % Baso % (Auto) 0.2 % Reticulocyte % (Auto) (0.5-2.0) % Neut # (Auto) 10.75 H (1.40-6.50) K/uL Lymph # (Auto) 0.77 L (1.2-3.4) K/uL [place] # (Auto) 0.87 H (0.11-0.59) K/uL Eos # (Auto) 0.03 (0-0.50) K/uL Baso # (Auto) 0.02 (0-0.2) K/uL Reticulocyte # (0.02-0.10) 10^6/uL Immature Gran # (Auto) 0.12 (0.01-0.20) K/uL RBC Morphology Unremarkable Peripher Smr Path Cons PT (9.0-12.0) Seconds INR (0.9-1.1) Sodium 129 L (136-145) mmol/L Potassium 5.0 (3.5-5.1) mmol/L Chloride 102 (98-107) mmol/L Carbon Dioxide 19 L (21-32) mmol/L Anion Gap 8 (3-11) BUN 42 H (6-23) mg/dl Creatinine 1.65 H (0.6-1.4) mg/dl Est Cr Clr Drug Dosing 52.9 ml/min Est GFR ( Amer) 48.7 ml/min Est GFR (Non-Af Amer) 42.0 ml/min BUN/Creatinine Ratio 25.5 H (10-20) Glucose 125 H (70-99(Fasting)) mg/dl Lactate (0.4-2.0) mmol/L Calcium 8.8 (8.6-10.3) mg/dl Phosphorus 3.5 (2.5-4.9) mg/dl Magnesium 1.4 L (1.7-2.4) mg/dl Iron (35-175) mcg/dl TIBC (250-450) mcg/dl Unsaturated IBC (155-355) mcg/dl Transferrin % Sat (20-50) % Ferritin Total Bilirubin 0.3 (0.2-1.0) mg/dl Direct Bilirubin (0-0.2) mg/dl AST 14 (13-39) U/L ALT 16 (7-52) U/L Alkaline Phosphatase 125 H (34-104) U/L Lactate Dehydrogenase (86-244) U/L Total Protein 6.5 (6.0-8.3) gm/dl Albumin 2.5 L (3.4-5.0) gm/dl Globulin 4.0 (2.5-4.0) gm/dl Albumin/Globulin Ratio 0.6 L (0.9-2) Lipase 15 (11-82) U/L Procalcitonin 1.56 H (0-0.5) ng/ml Urine Color Urine Appearance (Clear) Urine pH (4.5-7.5) Ur Specific [place] (1.000-1.030) Urine Protein (Negative) Urine Glucose (UA) (Negative) Urine Ketones (Negative) Urine Blood (Negative) Urine Nitrite (Negative) Urine Bilirubin (Negative) Urine Urobilinogen (Negative) Ur Leukocyte Esterase (Negative) Urine WBC (Auto) (0-5) /hpf Urine RBC (Auto) (0-4) /hpf U Hyaline Cast (Auto) (0-5) /lpf U Epithel Cells (Auto) (0-5) /lpf Urine Bacteria (Auto) (Negative) Ur Renal Epithelial Cell Urine Yeast Salicylates (3.0-30) mg/dl Acetaminophen (10-30) ug/ml SARS-CoV-2, RNA, NAAT (NEGATIVE) Blood Type Blood Type Recheck Antibody Screen Crossmatch 07/11/22 Range/Units 15:47 WBC (4.8-10.8) K/ul RBC (4.70-6.10) M/uL Hgb (14.0-18.0) g/dl Hct (42.0-52.0) % MCV (80.0-100.0) fL MCH (25.0-34.0) pg MCHC (32.0-36.0) g/dL RDW Std Deviation (36.4-46.3) fL RDW Coeff of Reina (11.5-14.5) % Plt Count (130-400) K/uL MPV (9.4-12.4) fL Immature Gran % (Auto) % Neut % (Auto) % Lymph % (Auto) % [place] % (Auto) % Eos % (Auto) % Baso % (Auto) % Reticulocyte % (Auto) (0.5-2.0) % Neut # (Auto) (1.40-6.50) K/uL Lymph # (Auto) (1.2-3.4) K/uL [place] # (Auto) (0.11-0.59) K/uL Eos # (Auto) (0-0.50) K/uL Baso # (Auto) (0-0.2) K/uL Reticulocyte # (0.02-0.10) 10^6/uL Immature Gran # (Auto) (0.01-0.20) K/uL RBC Morphology Peripher Smr Path Cons PT (9.0-12.0) Seconds INR (0.9-1.1) Sodium (136-145) mmol/L Potassium (3.5-5.1) mmol/L Chloride (98-107) mmol/L Carbon Dioxide (21-32) mmol/L Anion Gap (3-11) BUN (6-23) mg/dl Creatinine (0.6-1.4) mg/dl Est Cr Clr Drug Dosing ml/min Est GFR ( Amer) ml/min Est GFR (Non-Af Amer) ml/min BUN/Creatinine Ratio (10-20) Glucose (70-99(Fasting)) mg/dl Lactate (0.4-2.0) mmol/L Calcium (8.6-10.3) mg/dl Phosphorus (2.5-4.9) mg/dl Magnesium (1.7-2.4) mg/dl Iron (35-175) mcg/dl TIBC (250-450) mcg/dl Unsaturated IBC (155-355) mcg/dl Transferrin % Sat (20-50) % Ferritin Total Bilirubin (0.2-1.0) mg/dl Direct Bilirubin (0-0.2) mg/dl AST (13-39) U/L ALT (7-52) U/L Alkaline Phosphatase (34-104) U/L Lactate Dehydrogenase (86-244) U/L Total Protein (6.0-8.3) gm/dl Albumin (3.4-5.0) gm/dl Globulin (2.5-4.0) gm/dl Albumin/Globulin Ratio (0.9-2) Lipase (11-82) U/L Procalcitonin (0-0.5) ng/ml Urine Color Dark Yellow Urine Appearance Cloudy A (Clear) Urine pH 5.5 (4.5-7.5) Ur Specific [place] 1.025 (1.000-1.030) Urine Protein 1+ H (Negative) Urine Glucose (UA) Negative (Negative) Urine Ketones Trace H (Negative) Urine Blood 3+ H (Negative) Urine Nitrite Negative (Negative) Urine Bilirubin Negative (Negative) Urine Urobilinogen Negative (Negative) Ur Leukocyte Esterase Trace H (Negative) Urine WBC (Auto) 10-30 H (0-5) /hpf Urine RBC (Auto) >30 H (0-4) /hpf U Hyaline Cast (Auto) 10-30 H (0-5) /lpf U Epithel Cells (Auto) >30 H (0-5) /lpf Urine Bacteria (Auto) Negative (Negative) Ur Renal Epithelial Cell Not Reportable Urine Yeast Not Reportable Salicylates (3.0-30) mg/dl Acetaminophen (10-30) ug/ml SARS-CoV-2, RNA, NAAT (NEGATIVE) Blood Type Blood Type Recheck Antibody Screen Crossmatch Diagnostic Findings Abdomen/Pelvis CT 07/11/22 15:35 CT SCAN OF THE ABDOMEN AND PELVIS WITH IV CONTRAST CLINICAL HISTORY: Flank pain COMPARISON STUDY: Abdominal CT dated 06/21/2022. TECHNIQUE: Following the IV administration of 85 cc of Optiray 320, CT scan of the abdomen and pelvis is performed from the lung bases to the proximal femora. Images are reviewed in the axial, sagittal, and coronal planes. IV contrast was administered without complication. A dose lowering technique was utilized adhering to the principles of ALARA. CT DOSE: 1185.13 mGy.cm FINDINGS: Lung bases: The heart is normal in size and without pericardial effusion. There is elevation of the left hemidiaphragm with segmental atelectasis at the left lung base. Scarring/atelectasis is also seen at the right lung base. There is no airspace consolidation typical for pneumonia or pleural effusion. Liver: The contrast-enhanced liver is normal in size, contour, and attenuation. There is no intrahepatic biliary ductal dilatation. The hepatic veins and portal veins are patent. Gallbladder: The gallbladder is distended but otherwise normal in appearance. Spleen: Normal in size and attenuation. Pancreas: Moderately atrophic and grossly unremarkable. Adrenal glands: Unremarkable. Kidneys: The contrast enhanced kidneys are normal in size. There is mild to moderate left hydroureteronephrosis. The left ureter is dilated into the pelvis. No hydronephrosis is seen on the right. An extrarenal pelvis is noted on the right. There is heterogeneous enhancement of the left kidney with mild left- sided perinephric stranding. Urothelial thickening or enhancement is seen within the left ureter with surrounding infiltration. Abdominal vasculature: The abdominal aorta is normal in course and caliber noting mild to moderate atherosclerotic calcification. Lymphadenopathy encases and at least mildly narrows the left iliac vein. Bowel: There is moderate colonic fecal retention. No bowel obstruction is seen. 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 There is mild rectal wall thickening. The appendix is well-visualized and normal. Peritoneum: There is no intraperitoneal free air or abdominal ascites. A midline surgical scar is noted. There is a fat-containing umbilical hernia. Lymphadenopathy: There is bulky retroperitoneal and iliac chain lymphadenopathy. This has progressed as compared to 06/21/2022. There is mild surrounding infiltration. A left periaortic node on image #205 measures 3.2 x 1.7 cm (previously measured 2.3 x 1.5 cm). A left iliac chain node on image #262 measures 3.1 x 2.4 cm, and a left external iliac chain node on image #300 measures 2.3 x 1.8 cm. A 13 mm cystic focus along the left external iliac chain on image heterogeneity is unchanged and may represent a tiny inclusion cyst. Pelvic viscera: The bladder and prostate are surgically absent. A 4.2 x 2.9 cm soft tissue implant is identified in the cystectomy bed on image #367. An 11 mm implant in the posterior pelvis on image 03/10/2022 is new from previous. Skeletal structures: The skeletal structures are osteopenic. There is mild to moderate lumbosacral spondylosis. No lytic or blastic lesions are seen. IMPRESSION: 1. There is postoperative change from cystectomy and prostatectomy with right lower quadrant urostomy. 2. There is [id number] left hydroureteronephrosis. Urothelial thickening and enhancement is seen in the left ureter, and there is heterogeneous enhancement of the left kidney with mild surrounding infiltration. Correlate with clinical findings and urinalysis for evidence of ascending infection/py elonephritis. 3. No hydronephrosis is seen on the right. 4. Moderate constipation. 5. There is circumferential rectal wall thickening. Correlate clinical for evidence of a nonspecific proctitis. 6. There is a large soft tissue implant identified in the cystectomy bed. Additionally, there is enlarging retroperitoneal and iliac chain lymphadenopathy as compared to 06/21/2022. These findings indicate progression of metastatic disease. 7. Additional findings as above. ACT 112: Negative or not required by law. Electronically signed by: Buddy Bernal M.D. 07/11/2022 7:06 PM Hip/Pelvis X-Ray 07/12/22 12:10 XR hip IRAJ 2v w pelvis CLINICAL HISTORY: R hip pain, hx bladder ca, progress, eval TECHNIQUE: 2 views of the bilateral hips and single frontal view of the pelvis were obtained. Comparison: None available at the time of this dictation. FINDINGS: There is no evidence of an acute fracture. Degenerative changes are seen in the hip joint. No soft tissue abnormality is seen. IMPRESSION: Degenerative changes without evidence of acute abnormality. ACT 112: Negative or not required by law. Electronically signed by: Devaughn Nelson M.D. 07/12/2022 1:51 PM Lumbar Spine X-Ray 07/12/22 12:10 XR lumbar spine 2-3V CLINICAL HISTORY: low back pain, bladder ca, eval path fx TECHNIQUE: 3 views of the lumbar spine were obtained. Comparison: Comparison is made to CT abdomen pelvis 07/11/2022 FINDINGS: There is no evidence of an acute fracture. Degenerative changes are seen in the lumbar spine. The alignment is normal. No soft tissue abnormality is seen. IMPRESSION: Degenerative changes as above without acute fracture or subluxation. ACT 112: Negative or not required by law. Electronically signed by: Devaughn Nelson M.D. 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
[2022-07-12] MEDS: BACLOFEN 10 MG TAB PO SCH ×2 (08:38→21:08)
[2022-07-12] MEDS: SENNA 8.6 MG TAB PO SCH (08:39)
[2022-07-12] MEDS: ACETAMINOPHEN 500 MG TAB PO SCH ×2 (08:40→15:05)
[2022-07-12] MEDS: POLYETHYLENE (MIRALAX) 17 GM PACK PO SCH ×2 (08:40→21:08)
[2022-07-12] MEDS: GABAPENTIN 300 MG CAP PO SCH ×3 (08:40→21:09)
[2022-07-12] MEDS: oxyCODONE HCL 10 MG TABCR (OxyCONTIN) PO SCH ×2 (08:41→21:08)
[2022-07-12] MEDS ORDERED: lisinopril 10 MG TAB PO SCH (09:00)
[2022-07-12 09:23] LABS: Hematocrit (blood only) 26.2 % (42.0-52.0); Hemoglobin 8.3 g/dl (14.0-18.0); Mean Corpuscular Hemoglobin 26.6 pg (25.0-34.0); Mean Corpuscular Hgb Conc 31.7 g/dL (32.0-36.0); Mean Platelet Volume 10.3 fL (9.4-12.4); Platelet Count 236 K/uL (130-400); RDW Coefficient of Variation 16.9 % (11.5-14.5); RDW Standard Deviation 51.8 fL (36.4-46.3); Red Blood Count 3.12 M/uL (4.70-6.10); Reticulocyte % 0.8 % (0.5-2.0); Reticulocytes # 0.03 10^6/uL (0.02-0.10); White Blood Count 11.79 K/ul (4.8-10.8)
[2022-07-12 09:43] LABS: Albumin Level 2.6 gm/dl (3.4-5.0); BUN Creatinine Ratio 25.5 (10-20); Bilirubin Direct 0.1 mg/dl (0-0.2); Bilirubin,Total 0.4 mg/dl (0.2-1.0); Calcium 9.6 mg/dl (8.6-10.3); Creatinine Clr Calc Pharmacy 82.6 ml/min; Est GFR (African American) 83.2 ml/min; Est GFR (Non-African American) 71.8 ml/min; Magnesium 1.8 mg/dl (1.7-2.4); Potassium 4.8 mmol/L (3.5-5.1); Total Protein 6.6 gm/dl (6.0-8.3)
[2022-07-12 10:13] LABS: INR 4.1 (0.9-1.1); Prothrombin Time 41.3 Seconds (9.0-12.0)
--- NOTE | 2022-07-12 10:23 | Electrocardiogram Report ---
Test Reason : Blood Pressure : / mmHG Vent. Rate : 098 BPM Atrial Rate : 098 BPM P-R Int : 150 ms QRS Dur : 092 ms QT Int : 326 ms P-R-T Axes : 051 052 028 degrees QTc Int : 416 ms Normal sinus rhythm Increased R/S ratio in V1, consider early transition or posterior infarct Abnormal ECG When compared with ECG of 26-OCT-2021 11:14, No significant change was found Confirmed by Mike Fish ([id number]) on 07/12/2022 10:22:21 AM Referred By: Janice Zarco Confirmed By:Xavier Fish
[2022-07-12] MEDS ORDERED: HYDROmorphone INJ 1 MG/ML SYRINGE IV STA (12:07)
[2022-07-12] MEDS: oxyCODONE HCL IR 5 MG TAB (IMMEDIATE RELEASE) PO PRN (13:13)
--- NOTE | 2022-07-12 13:28 | Urology Consultation ---
I have discussed Mr. Lopez's case with STEFAN Rodriguez and agree with the above documentation. Overall clinical picture is concerning for recurrence of bladder cancer/metastatic disease. We reviewed that the amount of the lymph nodes or the deposit within the pelvis if there is any doubt this diagnosis. Unfortunately, I do not think there is any role for further surgical inter vention at this time. Would defer to medical oncology regarding management options. -Jeffery Yousif MD. Date of Consultation July 12, 2022 Assessment & Plan (1) Complicated urinary tract infection: (2) KEV (acute kidney injury): (3) Hx of bladder cancer: Plan 67yo/M with a history of muscle invasive bladder cancer who underwent radical cystoprostatectomy, bilateral pelvic lymph node dissection and ilieal conduit urinary diversion [place] Lyman [place] [facility] admitted to the medicine service for complicated UTI, KEV, anemia. CT of the abdomen/pelvis with IV contrast performed on arrival which revealed a soft tissue implant identified in the cystectomy bed as well as enlarging retroperitoneal and iliac chain LAD as compared to image from 06/21/22 concerning for progression of metastatic disease, postoperative change from cystectomy and prostatectomy with right lower quadrant urostomy, mild to moderate left hydronephrosis, urothelial thickening of the left ureter, no hydronephrosis on the right. Urology consulted for Bladder CA concern for recurrence with mets per CT. Afebrile and hemodynamically stable. Labs show a WBC 11.79, creatinine 1.06, hemoglobin 8.3 (received 2 units PRBC on admit). Urine and blood cultures are pending. On meropenem, follow cultures. Urostomy intact, draining clear yellow urine. Continue to monitor. No acute intervention warranted. Oncology consulted given concern for recurrence on CT imaging. Continue supportive care and antibiotic therapy. Urology will follow. History of Present Illness Attending Physician: Mukul Hernandes MD History of Present Illness 67-year-old male with history of muscle invasive bladder cancer who underwent radical cystoprostatectomy, bilateral pelvic lymph node dissection and ilieal conduit urinary diversion [place] Dr. Lyman [place] [facility] [place]. Patient presented to the ED with lower back pain and abdominal discomfort. He also noted occasional subjective fevers and chills at home. He was admitted to the medicine service for complicated UTI, KEV, anemia. Recently admitted to [facility] from 06/21/22 - 06/27/22 after presenting with abdominal pain, decreased PO intake. Patient was found to have a complicated UTI secondary to enterococcus. He was treated with Zosyn then Daptomycin and was ultimately discharged on Amoxicillin 500mg TID to complete 10 days of therapy. Blood cultures were negative. In the ER patient afebrile, tachycardic, borderline low blood pressure. Labs showing a WBC 12.56, hemoglobin 6.7, creatinine 1.65. Received [address] abd pelvis- 1. There is postoperative change from cystectomy and prostatectomy with right lower quadrant urostomy. 2. There is [id number] left hydroureteronephrosis. Urothelial thickening and enhancement is seen in the left ureter, and there is heterogeneous enhancement of the left kidney with mild surrounding infiltration. Correlate with clinical findings and urinalysis for evidence of ascending infection/pyelonephritis. 3. No hydronephrosis is seen on the right. 4. Moderate constipation. 5. There is circumferential rectal wall thickening. Correlate clinical for evidence of a nonspecific proctitis. 6. There is a large soft tissue implant identified in the cystectomy bed. Additionally, there is enlarging retroperitoneal and iliac chain lymphadenopathy as compared to 06/21/2022. These findings indicate progression of metastatic disease. Patient examined at bedside today with Dr. Yousif. Awake, sitting up in bed on arrival. No acute distress. Allergies Allergy/AdvReac Type Severity Reaction Status Date / Time No Known Allergies Allergy Verified 07/07/22 08:20 Home Medications Medication Instructions Recorded Confirmed Type cyanocobalamin (vitamin B-12) 1,000 mcg PO DAILY 06/21/22 07/11/22 History 1,000 mcg tablet (Vitamin B-12) docusate sodium 100 mg tablet 100 mg PO QID PRN Constipation 06/21/22 07/11/22 History (Stool Softener) lisinopril 10 mg tablet 10 mg PO DAILY 06/21/22 07/11/22 History baclofen 10 mg tablet 5 mg PO BID #60 tabs 06/27/22 07/11/22 Rx diclofenac sodium 1 % topical gel 4 g EXT QID #100 grams 06/27/22 07/11/22 Rx (Voltaren Arthritis Pain) gabapentin 300 mg capsule 300 mg PO TID #90 caps 06/27/22 07/11/22 Rx naloxone 4 mg/actuation nasal 1 spray intranasal Q3M sedation/ 06/27/22 07/11/22 Rx spray (Narcan) overdose #2 ea oxycodone 10 mg tablet,crush 10 mg PO BID #60 tabs 06/27/22 07/11/22 Rx resistant,extended release 12 hr (OxyContin) polyethylene glycol 3350 17 gram 17 g PO BID #60 ea 06/27/22 07/11/22 Rx oral powder packet (Miralax) sennosides 8.6 mg tablet (Senokot) 17.2 mg PO QAM #30 tabs 06/27/22 07/11/22 Rx warfarin 5 mg tablet 5 mg PO DAILY@1600 #30 tabs 06/27/22 07/11/22 Rx ciprofloxacin HCl 500 mg tablet 500 mg PO Q12 07/11/22 07/11/22 History oxycodone 5 mg tablet 5 mg PO Q4 PRN severe pain (scale 07/11/22 07/11/22 History score 7-10) Patient History Medical History Chronic anticoagulation Hx of bladder cancer 11/2021 Hypertension no meds Left lumbar radiculitis Lumbar spinal stenosis mod-severe worst at L2-3 with severe left NFS Surgical History History of ankle surgery "Left" History of arthroscopy of left shoulder History of shoulder surgery Right x1 Left x3 History of tooth extraction Hx of vasectomy Port-A-Cath in place (12/14/21) Insertion Access Port with Fluoroscopy(Not Applicable) - Keo Peck DO, FACS S/P TURP 11-01-21 Family History Sister Breast cancer Father Hypertension Grandmother Diabetes Aunt Stroke Social History Smoking Status: Never smoker Second Hand Exposure: No; Do You Dip or Chew Tobacco: Yes; Hx Alcohol Use: No Hx Substance Use: No Preferred Language: Bengali Communication Ability: Effective Paper Inspector Required: No Beliefs That Will Affect Care: None marital status: / Current Living Situation: Alone current occupational status: retired Other Information That Helps Us Care for You: No Feels Safe at Home: Yes Safety Concerns: Feels Safe At This Time Assistive Devices: None Review of Systems Review of Systems: All systems reviewed & are unremarkable except as noted in HPI & below Physical Exam Constitutional: no acute distress Eyes: PERRL, conjunctivae normal, anicteric sclerae ENMT: external ear and nose normal, oropharynx normal Neck: normal visual inspection Respiratory: normal respiratory effort; no respiratory distress and no labored breathing Gastrointestinal (Abdomen): Inspection/Auscultation: abdomen normal to inspection Musculoskeletal: Head/Neck/Chest: normocephalic Neurologic: moves all extremities and awake Psychiatric: A+Ox3, euthymic affect Genitourinary: Urostomy in place with clear yellow urine Results & Data Vital Signs (Past 12 Hours) Vital Signs Temp Pulse Resp BP Pulse Ox O2 Del Method 07/12/22 11:27 36.8 C 110 H 18 113/63 94 Room Air 07/12/22 07:57 36.5 C 112 H 18 161/75 H 97 Room Air 07/12/22 03:00 36.6 C 94 H 18 93/57 L 95 Room Air PG Care Time/CCT Total # of Minutes Spent Total Time Spent with Patient: Total time spent is greater than 50% in coordination of care (as documented) at patient's floor/unit and/or counseling patient: Coding Level of Care Code 26550 INT INP/OBS CARE 2/55MIN Diagnoses Complicated urinary tract infection N39.0 KEV (acute kidney injury) N17.9 Hx of bladder cancer Z85.51
--- NOTE | 2022-07-12 13:53 | XRay Report ---
XR hip IRAJ 2v w pelvis CLINICAL HISTORY: R hip pain, hx bladder ca, progress, eval TECHNIQUE: 2 views of the bilateral hips and single frontal view of the pelvis were obtained. Comparison: None available at the time of this dictation. FINDINGS: There is no evidence of an acute fracture. Degenerative changes are seen in the hip joint. No soft ti ssue abnormality is seen. IMPRESSION: Degenerative changes without evidence of acute abnormality. ACT 112: Negative or not required by law. Electronically signed by: Devaughn Nelson M.D. 07/12/2022 1:51 PM
--- NOTE | 2022-07-12 13:56 | XRay Report ---
XR lumbar spine 2-3V CLINICAL HISTORY: low back pain, bladder ca, eval path fx TECHNIQUE: 3 views of the lumbar spine were obtained. Comparison: Comparison is made to CT abdomen pelvis 07/11/2022 FINDINGS: There is no evidence of an acute fracture. Degenerative changes are seen in the lumbar spine. The ali gnment is normal. No soft tissue abnormality is seen. IMPRESSION: Degenerative changes as above without acute fracture or subluxation. ACT 112: Negative or not required by law. Electronically signed by: Devaughn Nelson M.D. 07/12/2022 1:54 PM
[2022-07-12] MEDS ORDERED: fentaNYL 12 MCG/HR TDSY TD SCH (16:30)
--- NOTE | 2022-07-12 16:42 | Communication Note ---
Date of Service: July 12, 2022 Discussed w/ patient and daughter at bedside, ongoing pain/pain control issue Was given dilaudid around lunch, oxycodone following. GOt another dose IV but n ot due, wanting better control. Palliative to see in AM but discussed starting fentanyl patch 12mcg for now and monitor response. Will plan to dc the Oxycontin dosing if able to get effective control with the patch but continue for tonight's dose appreciate assistance/recs from palliative medicine as well
[2022-07-13] MEDS: HYDROmorphone INJ 0.5 MG/0.5 ML SYR IV PRN ×10 (00:13→11:56)
[2022-07-13] MEDS: CHECK fentaNYL PATCH PLACEMENT SCH ×3 (00:13→16:21)
[2022-07-13] MEDS: ACETAMINOPHEN 500 MG TAB PO SCH ×3 (00:13→16:18)
[2022-07-13] MEDS: MEROPENEM 500 MG in SYRINGE 0 ML IV SCH ×5 (00:13→22:10)
--- NOTE | 2022-07-13 08:00 | Hospitalist Progress Note ---
Date of Service July 13, 2022 Assessment & Plan (1) Back pain: Plan: did not fill extended release OxyContin, using prn oxycodone ordered IV dose dilaudid in meantime, resumed his oxycodone but 10mg q4h prn and will monitor needs xray lumbar/hip unimpressive but obtaining bone scan given hx bladder ca/progression of disease for further eval. heme/onc on consult Bone scan NEGATIVE for uptake -- messaged Dr Coon regarding such/consideration for further options for progression of bladder ca given findings on CTAP on admission Palliative on consult for pain control -- fentanyl patch 12mcg started 07/12 (noting he had on low back/using heating pad). Palliative increased IV dilaudid to 1mg Q1h as needed, increased Oxycodone IR to 15mg as needed. Added flexeril as well for spasm pain to lower back Monitor response to pain control/further adjustments as needed Tx UTI w/ meropenem continued to complete course which would be done by now -- cx no growth at present. blood cx ngtd and will dc tomorrow if remaining negative Bowel regimen added and encouraged compliance for patient to prevent straining/worsening back pain given increased pain medications Can have outpt f/u palliative for ongoing pain control (also for SI injections w/ pain management once cleared from UTI) PT/OT consultations (2) Anemia requiring transfusions: Plan: Patient with symptomatic anemia - Hgb=6.7, Hct=21.6. Unclear source although urinary is most likely given his medical history, 3+ blood on UA and dc on coumadin due to cost issues w/ prior Eliquis use x2 months for R leg DVT s/p surgery for bladder ca s/p 2 u PRBC for hgb 6.7 -> 8.3 on repeat and remained stable Coumadin on hold (INR 4.6 on admission) -- INR currently 3.5 and will continue to hold for today and likely able to resume for tomorrow CTAP on admit w/ concerns for metastatic disease Heme/onc on consult as above, Urology Monitor CBC?INR in AM (3) Complicated urinary tract infection: Plan: Patient with recent UTI -culture from 07/04/22 POSITIVE for Enterobacter cloacae. Prior urine culture from 06/22/22 POSITIVE for Enterobacter faecalis. Patient has been on Ciprofloxacin with last dose 07/12/22. CT of the abdomen with [id number] left hydroureteronephrosis with urothelial thickening and enhancement in the left ureter as well as heterogenous enhancement of the left kidney with mild surrounding infiltration. UA does not strongly support infection at this time - trace LE, 10-30WBCs with >30 RBCs and Negative bacteria. Leukocytosis w/ elevated procal on admission Meropenem continued on admission Repeat urine culture three types krystal, low counts, no further identifications noted Will continue for today and d/c tomorrow if no issues w/ blood cultures (remaining ngtd) Urology consulted (4) Urothelial carcinoma of bladder: Plan: Patient with urothelial carcinoma of the bladder s/p cystectomy with ureterostomy tube in place. He follows predominantly with Oncology at [facility]. Patient had a CT of the abdomen/pelvis with IV contrast performed today which revealed a soft tissue implant identified in the cystectomy bed as well as enlarging retroperitoneal and iliac chain LAD as compared to image from 06/21/22. Findings are most concerning for progression of metastatic disease. CT findings briefly discussed with patient including the possibility that it may indicate a recurrence of his malignancy. Patient also with 3+ blood noted on UA Will consult Urology and Oncology while patient is admitted as above -- appreciate recs/assistance --> urology does not think any further role for surgical intervention and defer to medical oncology. bones scan negative as above -- messaged Dr Coon for options for patient moving forward (5) Right leg DVT: Plan: Patient with RLE DVT diagnosed 03/2022 at [facility] [place] He was previously being treated with Eliquis which was discontinued secondary to cost. He was most recently started on Coumadin - thought to be at continued risk for VTE given h/o ericka gnancy and decreased mobility due to ongoing back pain. INR supratherapeutic at 4.6. Patient denies obvious source of blood loss - melena/hematochezia or hematuria. He does have 3+ blood in UA. Has been on Cipro - possibly contributing to supratherapeutic INR Hold Coumadin for now as INR still elevated to 3.5 and likely can resume tomorrow pending repeat INR level Would rec having outpt/HH check repeat INRs at d/c to ensure stable (6) Hypertension: Plan: Patient with lower blood pressures in the ER Stable BPs, 122/73. Cr 1.15 and will hold off resuming lisinopril until tomorrow if needed (7) Acute hyponatremia: Plan: Na 129, stable currently at 131 Monitor (8) KEV (acute kidney injury): Plan: Resolved w/ IVF Renal dose meds/avoid nephrotoxins as able Planning to resume lisinopril in AM if kidney function remains stable Plan continued inpatient stay working on pain control Admission and Anticipated Discharge Date Admission Date: July 11, 2022 Supervising Physician Co-Signing Physician Notes The patient was not seen by me. The chart was reviewed. Case discussed with JUMANA Foster. Agree with assessment and plan Subjective Eval this afternoon, just got dose IV Dilaudid 1mg per palliative. Fentanyl continued but wearing on his back w/ heating pad so difficult to determine absorption. Palliative to be able to follow along outpatient as clinic set up. Also discussed addition of baclofen/Flexeril for spasm type pain and increased oxycodone IR to 15mg as needed and will have RN give to see how effective. BM the other day and passing gas but no BM today. Discussed aggressive bowel regimen to prevent constipation which can make pain worse. He is agreeable to additional miralax. Questions/concerns addressed at this time. Physical Exam Physical Exam: General: WD male sitting up at side of bed , daughter at bedside, just medicated for pain, NAD HEENT: head normocephalic, atraumatic, mmm, trachea midline Resp: CTA, slightly diminished in the bases, on room air 97% CV: rrr (slightly tachy to low 100/110s at times), no significant m/r/g, trace pedal edema GI: +BS, slight distension, nontender urostomy bag w/ yellow urine MSK/Neuro: tender to palpation lumbar spine/paraspinal muscles strength equal bilaterally Psych: AOx3, cooperative with exam Results & Data Results & Data Vital Signs (Past 12 Hours) Vital Signs Temp Pulse Pulse Resp BP Pulse Ox O2 Del Method 07/13/22 07:47 36.7 C 118 H 16 117/65 96 Room Air 07/13/22 07:38 96 H 07/13/22 00:00 103 H 07/13/22 03:10 37.3 C 116 H 20 97/57 L 96 Room Air 07/12/22 23:14 36.6 C 111 H 18 148/60 H 98 Room Air Laboratory Results 07/12/22 07/12/22 07/12/22 Range/Units 08:47 08:47 08:37 WBC (4.8-10.8) K/ul RBC (4.70-6.10) M/uL Hgb (14.0-18.0) g/dl Hct (42.0-52.0) % MCV (80.0-100.0) fL MCH (25.0-34.0) pg MCHC (32.0-36.0) g/dL RDW Std Deviation (36.4-46.3) fL RDW Coeff of Reina (11.5-14.5) % Plt Count (130-400) K/uL MPV (9.4-12.4) fL Reticulocyte % (Auto) (0.5-2.0) % Reticulocyte # (0.02-0.10) 10^6/uL Peripher Smr Path Cons PT (9.0-12.0) Seconds INR (0.9-1.1) Sodium 133 L (136-145) mmol/L Potassium 4.8 (3.5-5.1) mmol/L Chloride 106 (98-107) mmol/L Carbon Dioxide 20 L (21-32) mmol/L Anion Gap 7 (3-11) BUN 27 H (6-23) mg/dl Creatinine 1.06 D (0.6-1.4) mg/dl Est Cr Clr Drug Dosing 82.6 ml/min Est GFR ( Amer) 83.2 ml/min Est GFR (Non-Af Amer) 71.8 ml/min BUN/Creatinine Ratio 25.5 H (10-20) Glucose 155 H (70-99(Fasting)) mg/dl Calcium 9.6 (8.6-10.3) mg/dl Magnesium 1.8 (1.7-2.4) mg/dl Iron Cancelled 20 L (35-175) mcg/dl TIBC Cancelled 123 L (250-450) mcg/dl Unsaturated IBC Cancelled 103 L (155-355) mcg/dl Transferrin % Sat Cancelled 16 L (20-50) % Ferritin Cancelled 2816.0 H (8-388) ng/ml Total Bilirubin 0.4 (0.2-1.0) mg/dl Direct Bilirubin 0.1 (0-0.2) mg/dl AST 14 (13-39) U/L ALT 16 (7-52) U/L Alkaline Phosphatase 115 H (34-104) U/L Lactate Dehydrogenase 113 (86-244) U/L Total Protein 6.6 (6.0-8.3) gm/dl Albumin 2.6 L (3.4-5.0) gm/dl 07/12/22 07/12/22 07/12/22 Range/Units 08:37 08:37 08:37 WBC 11.79 H (4.8-10.8) K/ul RBC 3.12 L (4.70-6.10) M/uL Hgb 8.3 L (14.0-18.0) g/dl Hct 26.2 L (42.0-52.0) % MCV 84.0 (80.0-100.0) fL MCH 26.6 (25.0-34.0) pg MCHC 31.7 L (32.0-36.0) g/dL RDW Std Deviation 51.8 H (36.4-46.3) fL RDW Coeff of Reina 16.9 H (11.5-14.5) % Plt Count 236 (130-400) K/uL MPV 10.3 (9.4-12.4) fL Reticulocyte % (Auto) 0.8 (0.5-2.0) % Reticulocyte # 0.03 (0.02-0.10) 10^6/uL Peripher Smr Path Cons Pending PT 41.3 H (9.0-12.0) Seconds INR 4.1 H (0.9-1.1) Sodium (136-145) mmol/L Potassium (3.5-5.1) mmol/L Chloride (98-107) mmol/L Carbon Dioxide (21-32) mmol/L Anion Gap (3-11) BUN (6-23) mg/dl Creatinine (0.6-1.4) mg/dl Est Cr Clr Drug Dosing ml/min Est GFR ( Amer) ml/min Est GFR (Non-Af Amer) ml/min BUN/Creatinine Ratio (10-20) Glucose (70-99(Fasting)) mg/dl Calcium (8.6-10.3) mg/dl Magnesium (1.7-2.4) mg/dl Iron (35-175) mcg/dl TIBC (250-450) mcg/dl Unsaturated IBC (155-355) mcg/dl Transferrin % Sat (20-50) % Ferritin (8-388) ng/ml Total Bilirubin (0.2-1.0) mg/dl Direct Bilirubin (0-0.2) mg/dl AST (13-39) U/L ALT (7-52) U/L Alkaline Phosphatase (34-104) U/L Lactate Dehydrogenase (86-244) U/L Total Protein (6.0-8.3) gm/dl Albumin (3.4-5.0) gm/dl Diagnostic Findings Bone Scan Nuclear Medicine 07/13/22 11:00 WHOLE BODY BONE SCAN HISTORY: bladder ca RADIOTRACER: 26.7 mCi Tc-99m MDP STUDY/IMAGES: Planar anterior and posterior whole body imaging was performed 3 hours following the intravenous administration of radiotracer. COMPARISON: Abdomen and pelvis CT 07/11/2022. FINDINGS: Focal areas of mild radiotracer uptake within the shoulders, sternoclavicular joints, sacroiliac joints, symphysis pubis, knees, and ankles suggestive of degenerative change. Otherwise, no suspicious areas of radiotracer uptake identified to suggest metastatic disease. IMPRESSION: No suspicious areas of radiotracer uptake to suggest skeletal metastatic disease. ACT 112: Negative or not required by law. Electronically signed by: Joshua Marcus M.D. 07/13/2022 11:26 AM PG Care Time/CCT Total # of Minutes Spent Total Time Spent with Patient: Total time spent is greater than 50% in coordination of care (as documented) at patient's floor/unit and/or counseling patient: Coding Level of Care Code 10971 SUB INP/OBS CARE 3/50MIN Diagnoses Back pain M54.9 Anemia requiring transfusions D64.9 Complicated urinary tract infection N39.0 Urothelial carcinoma of bladder C67.9 Right leg DVT I82.401 Hypertension I10 Acute hyponatremia E87.1 KEV (acute kidney injury) N17.9
[2022-07-13 08:29] LABS: Basophils # (auto) 0.04 K/uL (0-0.2); Basophils % (auto) 0.3 %; Eosinophils # (auto) 0.06 K/uL (0-0.50); Eosinophils % (auto) 0.5 %; Hematocrit (blood only) 26.1 % (42.0-52.0); Hemoglobin 8.3 g/dl (14.0-18.0); Immature Granulocytes # (auto) 0.11 K/uL (0.01-0.20); Immature Granulocytes % (auto) 0.9 %; Lymphocytes # (auto) 1.02 K/uL (1.2-3.4); Lymphocytes % (auto) 8.6 %; Mean Corpuscular Hemoglobin 26.6 pg (25.0-34.0); Mean Corpuscular Hgb Conc 31.8 g/dL (32.0-36.0); Mean Corpuscular Volume 83.7 fL (80.0-100.0); Monocytes # (auto) 1.13 K/uL (0.11-0.59); Monocytes % (auto) 9.5 %; Neutrophils % (auto) 80.2 %; Platelet Count 222 K/uL (130-400); RDW Coefficient of Variation 17.1 % (11.5-14.5); Red Blood Count 3.12 M/uL (4.70-6.10); White Blood Count 11.86 K/ul (4.8-10.8)
[2022-07-13 08:44] LABS: Albumin Globulin Ratio 0.7 (0.9-2); Albumin Level 2.7 gm/dl (3.4-5.0); BUN Creatinine Ratio 20.9 (10-20); Bilirubin,Total 0.3 mg/dl (0.2-1.0); Calcium 9.6 mg/dl (8.6-10.3); Creatinine Clr Calc Pharmacy 75.5 ml/min; Est GFR (African American) 75.4 ml/min; Globulin 4.1 gm/dl (2.5-4.0); Magnesium 1.7 mg/dl (1.7-2.4); Potassium 4.4 mmol/L (3.5-5.1); Total Protein 6.8 gm/dl (6.0-8.3)
[2022-07-13 08:50] LABS: INR 3.5 (0.9-1.1); Prothrombin Time 35.3 Seconds (9.0-12.0)
[2022-07-13] MEDS: GABAPENTIN 300 MG CAP PO SCH ×3 (08:51→20:17)
[2022-07-13] MEDS: POLYETHYLENE (MIRALAX) 17 GM PACK PO SCH ×3 (08:51→20:17)
[2022-07-13] MEDS: BACLOFEN 10 MG TAB PO SCH (08:51)
[2022-07-13] MEDS: SENNA 8.6 MG TAB PO SCH (09:52)
[2022-07-13] MEDS: oxyCODONE HCL IR 5 MG TAB (IMMEDIATE RELEASE) PO PRN ×2 (09:52→13:28)
--- NOTE | 2022-07-13 11:27 | Nuclear Medicine Report ---
WHOLE BODY BONE SCAN HISTORY: bladder ca RADIOTRACER: 26.7 mCi Tc-99m MDP STUDY/IMAGES: Planar anterior and posterior whole body imaging was performed 3 hours following the i ntravenous administration of radiotracer. COMPARISON: Abdomen and pelvis CT 07/11/2022. FINDINGS: Focal areas of mild radiotracer uptake within the shoulders, sternoclavicular joints, sacro iliac joints, symphysis pubis, knees, and ankles suggestive of degenerative change. Otherwise, no sneha picious areas of radiotracer uptake identified to suggest metastatic disease. IMPRESSION: No suspicious areas of radiotracer uptake to suggest skeletal metastatic disease. ACT 112: Negative or not required by law. Electronically signed by: Joshua Marcus M.D. 07/13/2022 11:26 AM
[2022-07-13] MEDS ORDERED: HYDROmorphone INJ 0.5 MG/0.5 ML SYR IV STA (12:39)
[2022-07-13] MEDS ORDERED: HYDROmorphone INJ 0.5 MG/0.5 ML SYR IV PRN (12:39)
[2022-07-13] MEDS ORDERED: HYDROmorphone INJ 1 MG/ML SYRINGE IV PRN (13:01)
--- NOTE | 2022-07-13 13:01 | Palliative Care Consultation ---
Date of Consultation July 13, 2022 Assessment & Plan (1) Palliative care by specialist: Met with pt/family (daughter who is also a nurse). Provided overview of Palliative Medicine, a subspecialty that provides specialized medical care for people living with a serious illness by offering a focus on quality of life. Palliative Medicine is often conflated with hospice: I advised patient/family that Palliative and hospice can be partners but we are not the same. It is important to understand the difference so that we may be informed, and not afraid. Palliative Medicine works to improve QOL through reduction of symptom burden/more control over their illness, for both the patient and family. Palliative medicine clinicians are board certified, specially-trained and another member of the patient's medical care team. We often provide an extra layer of support because our care is based on the needs of the patient, not the prognosis; as such, it's appropriate at any age/advancing stage of a serious illness and can be provided along with curative treatment. Palliative Medicine clinicians are also trained in advanced communication methodologies, to facilitate complex discussions about advanced illness planning, which are needed to help assure that the treatment choices match the patient's goals, aka de livering Goal Concordant care. Finally, we discussed that hospice is a visiting nurse service that focuses on care delivered at the very end of life for patients with terminal illness, with life expectancy less than 6 month. (2) Cancer related pain: Patient using approx 13 doses of Dilaudid 0.5mg in past day without much relief TDF 12mcg added late yesterday however he has been resting in bed and applying a heating pad directly against the TDF patch this entire time. Will inc Dilaudid prn to 1mg and added hold parameters Continue TDF for now, can take 18+ hr for dose to come up to effect in bew starts Increased OxyIR to 15mg PO q2h prn pain HOLD parameters added to all opioids denies bowel issues, voiding routinely Most likely he needs dose of TDF up titrated - current dialudid IV use is approx 33mg IV MS equivalents (approx) and so would likely nee TDF increased to around 50mcg - I will reassess tomorrow. (3) Back pain: (4) Complicated urinary tract infection: (5) KEV (acute kidney injury): (6) Hx of bladder cancer: (7) Lumbar radicular pain: (8) Abdominal pain: Plan As noted above. Consider repeat spine MRI for any worsening back or leg pain or any progressive BLE weakness. Thank you for allowing us to participate in the ongoing care of this patient. Please don't hesitate to call or page with any additional concerns. Dr. Thalia Guevara [facility] Director, Palliative Care History of Present Illness Reason for Consultation: cancer pain mgt Attending Physician: Mukul Hernandes MD History of Present Illness 67yo male with met urothelial bladder ca admitted with refractory very severe cancer pain. Pt states pain starts in lower back left more than right and "shoots through his body to front" and radiates down into groin and inside of the thigh, again left > right. He was using hi dose ibuprofen approx 6 tabs daily + hi dose tylenol approx 6-8 tabs + periodic aspirin approx 3-4 tabs daily at home without relief. he has had trouble with insurance coverage for pain meds and unable to afford some copays. he was started on low dose TDF 12mcg he is using dilaudid IV for BP, 0.5mg ordered IV q1h prn and he has used approx 13 ooses without lasting relief. he states the dilaudid helps but wears off well before the hour is up. he finds himself watching the clock for next dose. June 21, 2022 Lumbar Spine MRI revealed: 1. Moderate disc degeneration at L2-3, L3-4, L4-5 and L5-S1 with mild disc degeneration at L1-2 with annular disc bulging causing a mild subarticular r ecess stenosis without evidence of neural impingement. 2. There is a severe spinal canal stenosis at L4-5, moderately severe stenosis at L3-4 and mild stenosis at L2-3 with a congenitally narrow spinal canal. 3. There is mild bilateral L2-3, mild right and moderate left L3-4, mild right L4-5, and moderately severe right and moderate left L5-S1 neuroforaminal stenosis with impingement of the left L3 and bilateral L5 nerve root ganglia. 4. There is mild facet arthropathy with mild synovitis. 5. Intraspinous bursitis at L1-2 through L5-S1. 6. 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 7. No evidence of fracture, infection, tumor or arachnoiditis. Nuclear bone scan earlier today revealed "No suspicious areas of radiotracer uptake to suggest skeletal metastatic disease." CT A/P, 07/11/22: 1. There is postoperative change from cystectomy and prostatectomy with right lower quadrant urostomy. 2. There is [id number] left hydroureteronephrosis. Urothelial thickening and enhancement is seen in the left ureter, and there is heterogeneous enhancement of the left kidney with mild surrounding infiltration. Correlate with clinical findings and urinalysis for evidence of ascending infection/pyelonephritis. 3. No hydronephrosis is seen on the right. 4. Moderate constipation. 5. There is circumferential rectal wall thickening. Correlate clinical for ev idence of a nonspecific proctitis. 6. There is a large soft tissue implant identified in the cystectomy bed. Additionally, there is enlarging retroperitoneal and iliac chain lymphadenopathy as compared to 06/21/2022. These findings indicate progression of metastatic disease. 7. Additional findings as above. Allergies Allergy/AdvReac Type Severity Reaction Status Date / Time No Known Allergies Allergy Verified 07/07/22 08:20 Home Medications Medication Instructions Recorded Confirmed Type cyanocobalamin (vitamin B-12) 1,000 mcg PO DAILY 06/21/22 07/11/22 History 1,000 mcg tablet (Vitamin B-12) docusate sodium 100 mg tablet 100 mg PO QID PRN Constipation 06/21/22 07/11/22 History (Stool Softener) lisinopril 10 mg tablet 10 mg PO DAILY 06/21/22 07/11/22 History baclofen 10 mg tablet 5 mg PO BID #60 tabs 06/27/22 07/11/22 Rx diclofenac sodium 1 % topical gel 4 g EXT QID #100 grams 06/27/22 07/11/22 Rx (Voltaren Arthritis Pain) gabapentin 300 mg capsule 300 mg PO TID #90 caps 06/27/22 07/11/22 Rx naloxone 4 mg/actuation nasal 1 spray intranasal Q3M sedation/ 06/27/22 07/11/22 Rx spray (Narcan) overdose #2 ea oxycodone 10 mg tablet,crush 10 mg PO BID #60 tabs 06/27/22 07/11/22 Rx resistant,extended release 12 hr (OxyContin) polyethylene glycol 3350 17 gram 17 g PO BID #60 ea 06/27/22 07/11/22 Rx oral powder packet (Miralax) sennosides 8.6 mg tablet (Senokot) 17.2 mg PO QAM #30 tabs 06/27/22 07/11/22 Rx warfarin 5 mg tablet 5 mg PO DAILY@1600 #30 tabs 06/27/22 07/11/22 Rx ciprofloxacin HCl 500 mg tablet 500 mg PO Q12 07/11/22 07/11/22 History oxycodone 5 mg tablet 5 mg PO Q4 PRN severe pain (scale 07/11/22 07/11/22 History score 7-10) Patient History Medical History (Updated 07/13/22 @ 12:56 by Thalia Guevara DNP) Cancer related pain Chronic anticoagulation Hx of bladder cancer 11/2021 Hypertension no meds Left lumbar radiculitis Lumbar spinal stenosis mod-severe worst at L2-3 with severe left NFS Palliative care by specialist Surgical History History of ankle surgery "Left" History of arthroscopy of left shoulder History of shoulder surgery Right x1 Left x3 History of tooth extraction Hx of vasectomy Port-A-Cath in place (12/14/21) Insertion Access Port with Fluoroscopy(Not Applicable) - Keo Peck DO, FACS S/P TURP -6 Family History Sister Breast cancer Father Hypertension Grandmother Diabetes Aunt Stroke Social History Smoking Status: Never smoker Second Hand Exposure: No; Do You Dip or Chew Tobacco: Yes; Hx Alcohol Use: No Hx Substance Use: No Preferred Language: Tamazight Communication Ability: Effective Web Services Architect Required: No Beliefs That Will Affect Care: None marital status: / Current Living Situation: Alone current occupational status: retired Other Information That Helps Us Care for You: No Feels Safe at Home: Yes Safety Concerns: Feels Safe At This Time Assistive Devices: None Review of Systems Review of Systems: All systems reviewed & are unremarkable except as noted in Subjective Physical Exam Constitutional: WD/WN, vitals as above Eyes: PERRL, conjunctivae normal, anicteric sclerae ENMT: external ear and nose normal, oropharynx normal (poor dentition) Neck: trachea midline, no thyromegaly Respiratory: normal effort Musculoskeletal: TTP bilat lower lumbar spine LEFT > Right with palpable parapsinal spasms, radiating to anterior left groin with deep pressure; +anterior left inguinal tenderness with radiation down into thigh/interior thigh. DECREASED strength LLE > RLE, unable to life LLE under resistance. Picture Copyist bilat equal. Skin: no rashes, warm and dry Neurologic: PERRL, EOMI, accommodation nl, no face palsy, no dysarthria Psychiatric: A+Ox3, euthymic affect Results & Data Vital Signs (Past 12 Hours) Vital Signs Temp Pulse Pulse Resp BP Pulse Ox O2 Del Method 07/13/22 11:44 36.6 C 105 H 16 122/73 97 Room Air 07/13/22 07:47 36.7 C 118 H 16 117/65 96 Room Air 07/13/22 07:38 96 H 07/13/22 03:10 37.3 C 116 H 20 97/57 L 96 Room Air Laboratory Results data reviewed Diagnostic Findings data reviewed PG Care Time/CCT Total # of Minutes Spent Total Time Spent: 80 Total Time Spent with Patient: Total time spent is greater than 50% in coordination of care (as documented) at patient's floor/unit and/or counseling patient: [place] [address] IN/OBS CONSULT LVL 5,80M Patient Type New History Comprehensive Exam Comprehensive Medical Decision Making High Complexity Diagnoses Palliative care by specialist Z51.5 Cancer related pain G89.3 Back pain M54.9 Complicated urinary tract infection N39.0 KEV (acute kidney injury) N17.9 Hx of bladder cancer Z85.51 Lumbar radicular pain M54.16 Abdominal pain R10.9
[2022-07-13] MEDS ORDERED: SODIUM CHLORIDE 0.9% 1000ML 500 ML IV ONE (17:12)
[2022-07-13 17:23] LABS: Base Excess VBG -5.4 mEq/L; HCO3 VBG 20 mmol/L; Oxygen Saturation VBG < 60.0 %; PCO2 VBG 38 mmHg (38-50); PO2 VBG 27 mmHg; pH VBG 7.33 (7.36-7.41)
[2022-07-13 17:27] LABS: Basophils # (auto) 0.03 K/uL (0-0.2); Basophils % (auto) 0.2 %; Eosinophils # (auto) 0.07 K/uL (0-0.50); Eosinophils % (auto) 0.6 %; Hematocrit (blood only) 27.5 % (42.0-52.0); Hemoglobin 8.6 g/dl (14.0-18.0); Immature Granulocytes % (auto) 0.8 %; Lymphocytes # (auto) 0.79 K/uL (1.2-3.4); Lymphocytes % (auto) 6.4 %; Mean Corpuscular Hemoglobin 26.5 pg (25.0-34.0); Mean Corpuscular Hgb Conc 31.3 g/dL (32.0-36.0); Mean Corpuscular Volume 84.9 fL (80.0-100.0); Mean Platelet Volume 10.8 fL (9.4-12.4); Monocytes # (auto) 1.06 K/uL (0.11-0.59); Monocytes % (auto) 8.7 %; Neutrophils % (auto) 83.3 %; Platelet Count 246 K/uL (130-400); RDW Standard Deviation 52.5 fL (36.4-46.3); Red Blood Count 3.24 M/uL (4.70-6.10); White Blood Count 12.25 K/ul (4.8-10.8)
[2022-07-13 17:41] LABS: Albumin Globulin Ratio 0.6 (0.9-2); Albumin Level 2.8 gm/dl (3.4-5.0); BUN Creatinine Ratio 19.8 (10-20); Bilirubin,Total 0.4 mg/dl (0.2-1.0); Calcium 9.4 mg/dl (8.6-10.3); Creatinine Clr Calc Pharmacy 74.9 ml/min; Est GFR (African American) 74.6 ml/min; Est GFR (Non-African American) 64.3 ml/min; Globulin 4.4 gm/dl (2.5-4.0); Potassium 4.6 mmol/L (3.5-5.1); Total Protein 7.2 gm/dl (6.0-8.3)
--- NOTE | 2022-07-13 17:55 | XRay Report ---
XR chest 1V portable CLINICAL HISTORY: fever, AMS COMPARISON STUDY: Chest radiograph December 14, 2021. FINDINGS: Left internal jugular [id number] remains in place. Elevation of the left hemidiaphragm i s unchanged. Left basilar opacity favors atelectasis. There is no evidence for pulmonary edema. Cardi omediastinal silhouette is normal. There is mild distention of the stomach. IMPRESSION: 1. Stable elevation of the left hemidiaphragm with left basilar opacity suggestive of atelectasis. 2. Mild gaseous distention of the stomach. ACT 112: Negative or not required by law. Electronically signed by: Aubrey Pavon M.D. 07/13/2022 5:54 PM
--- NOTE | 2022-07-13 17:57 | XRay Report ---
KUB CLINICAL HISTORY: fever, AMS, eval SBO vs ileus COMPARISON STUDY: CT of the abdomen and pelvis July 11, 2022. FINDINGS: Surgical clips from prostatectomy are noted. The bowel gas pattern is normal. No renal calc bharat are identified. IMPRESSION: No evidence for a bowel obstruction. ACT 112: Negative or not required by law. Electronically signed by: Aubrey Pavon M.D. 07/13/2022 5:56 PM
[2022-07-13 17:59] LABS: Appearance Urine Cloudy (Clear); Bacteria Urine Automated 1+ (Negative); Bilirubin Urine Negative (Negative); Blood Urine Negative (Negative); Color Urine Yellow; Epithelial Cell Urine Auto 0-5 /lpf (0-5); Glucose Urine UA Negative (Negative); Ketones Urine Negative (Negative); Leukocyte Esterase Urine Negative (Negative); Nitrite Urine Negative (Negative); Protein Urine 1+ (Negative); RBC Urine Automated 0-4 /hpf (0-4); Specific Gravity Urine 1.015 (1.000-1.030); Urobilinogen Urine Negative (Negative); pH Urine 5.5 (4.5-7.5)
[2022-07-13] MEDS: HYDROmorphone INJ 1 MG/ML SYRINGE IV PRN ×3 (20:16→23:35)
[2022-07-13] MEDS ORDERED: MAGNESIUM HYDROXIDE SUSP 30 ML UDC PO PRN (23:44)
[2022-07-13] MEDS ORDERED: bisacodyL 10 MG SUPP PR PRN (23:44)
[2022-07-13] MEDS ORDERED: DOCUSATE SODIUM 100 MG CAP PO PRN (23:44)
[2022-07-14] MEDS: CHECK fentaNYL PATCH PLACEMENT SCH ×3 (01:18→16:24)
[2022-07-14] MEDS: ACETAMINOPHEN 500 MG TAB PO PRN ×3 (03:19→22:59)
[2022-07-14] MEDS: HYDROmorphone INJ 1 MG/ML SYRINGE IV PRN ×2 (04:49→16:23)
[2022-07-14] MEDS: MEROPENEM 500 MG in SYRINGE 0 ML IV SCH ×4 (04:50→21:59)
[2022-07-14] MEDS: HYDROmorphone INJ 0.5 MG/0.5 ML SYR IV PRN ×4 (07:14→12:27)
[2022-07-14 07:31] LABS: Basophils # (auto) 0.04 K/uL (0-0.2); Basophils % (auto) 0.3 %; Eosinophils # (auto) 0.07 K/uL (0-0.50); Eosinophils % (auto) 0.5 %; Hematocrit (blood only) 26.2 % (42.0-52.0); Hemoglobin 8.1 g/dl (14.0-18.0); Immature Granulocytes # (auto) 0.13 K/uL (0.01-0.20); Lymphocytes # (auto) 1.32 K/uL (1.2-3.4); Lymphocytes % (auto) 10.3 %; Mean Corpuscular Hgb Conc 30.9 g/dL (32.0-36.0); Mean Corpuscular Volume 84.2 fL (80.0-100.0); Mean Platelet Volume 10.4 fL (9.4-12.4); Monocytes # (auto) 1.38 K/uL (0.11-0.59); Monocytes % (auto) 10.8 %; Neutrophils # (auto) 9.84 K/uL (1.40-6.50); Neutrophils % (auto) 77.1 %; Platelet Count 221 K/uL (130-400); RDW Coefficient of Variation 17.1 % (11.5-14.5); RDW Standard Deviation 52.6 fL (36.4-46.3); Red Blood Count 3.11 M/uL (4.70-6.10); White Blood Count 12.78 K/ul (4.8-10.8)
--- NOTE | 2022-07-14 07:42 | Hospitalist Progress Note ---
Date of Service July 14, 2022 Assessment & Plan (1) Encephalopathy: Plan: CURRENTLY RESOLVED/STABLE developed acute onset confusion/fever/worsening tachycardia w/ HRs to upper 130s (sinus) after increased pain medications 07/13 and had received Oxycodone IR 15mg and increased dilaudid to 1mg IV prn in addition to the newly started dilaudid --> eval and knew was year 2022, but thought initially in [place]. daughter at bedside w/ concerns this is how he was before he got septic at [place] Had L sided CVA tenderness KUB/CXR unrevealing for infectious etiology, procal decreased compared to prior. WBC about the same. No further fever. ?medication related?. Did have increased dose meropenem but was on 07/12 ?from increased fentanyl absorption as was using w/ heating pad day prior Continuing abx for UTI Ammonia 25, VBG w/o CO2 retention Repeat Blood/urine cx pending -- UA w/ 1+ bacteria, 10-30 WBC< no epi. Also noted granular casts. Was given IVF bolus for tachycardia w/ improvement in rates Urology consult appreciated Currently back to baseline Monitor on repeat exams Pain control as below (2) Back pain: Plan: Does have some aspect of lumbar radiculopathy, likely at level L3 Ongoing issues w/ pain control Concerns for stu mets given CTAP w/ progressive findings Bone scan completed, NEGATIVE for uptake at present time Heme/onc on consult - planning outpt PET scan. Patient has upcoming appt Urology at [facility]. CD burnt but also called radiology to push imaging for eval Palliative on consult for pain control as well --> they increased fentanyl patch to 50mcg q3d and will monitor response Flexeril also available for spam pain -- asked to provide next med pass to see if effective so we can get good regimen for at d/c Unable to use NSAIDs w/ Coumadin/DVT at present Dilaudid IV available prn, but decreased to 0.5mg as needed Bowel regimen - +BM 07/13, monitor F/u pain management for consideration SI injections once cleared up from UTI PT/OT consulted (3) Anemia requiring transfusions: Plan: Patient with symptomatic anemia - Hgb=6.7, Hct=21.6. Unclear source although urinary is most likely given his medical history, 3+ blood on UA and dc on coumadin due to cost issues w/ prior Eliquis use x2 months for R leg DVT s/p surgery for bladder ca s/p 2 u PRBC for hgb 6.7 -> 8.3 on repeat and remained stable but 8.1 today, no increased bleeding but had been given IVF and suspect dilution at present INR 4.6 on admit, suspect from Cipro use for UTI outpatient Coumadin had been held, resumed today for INR 2.0. May need a dose of lovenox to bridge tomorrow pending repeat INR CTAP on admit w/ concerns met disease as above -- PET scan planned outpt. Attempting sooner f/u with [facility] Urology fecal occult NEGATIVE Monitor CBC/INR in AM (4) Complicated urinary tract infection: Plan: Patient with recent UTI -culture from 07/04/22 POSITIVE for Enterobacter cloacae. Prior urine culture from 06/22/22 POSITIVE for Enterobacter faecalis. Patient has been on Ciprofloxacin with last dose 07/12/22. CT of the abdomen with [id number] left hydroureteronephrosis with urothelial thickening and enhancement in the left ureter as well as heterogenous enhancement of the left kidney with mild surrounding infiltration. UA on admit did not strongly support infection at time of presentation, HOWEVER had been on Cipro by Dr Coon and could have been falsely negative Culture from admit w/ three types oransims, all low counts and prob skin krystal Repeat urine cx last evening w/ possible infection, but remaining on meropenem given prior cultures for coverage both prior bacteria. Will continue such for now unless any resistance/growth on blood culture Procal improving Urology on consult (5) Urothelial carcinoma of bladder: Plan: Patient with urothelial carcinoma of the bladder s/p cystectomy with ureterostomy tube in place. He follows predominantly with Oncology at [facility]. Patient had a CT of the abdomen/pelvis with IV contrast p erformed which revealed a soft tissue implant identified in the cystectomy bed as well as enlarging retroperitoneal and iliac chain LAD as compared to image from 06/21/22. Findings are most concerning for progression of metastatic disease. CT findings briefly discussed with patient including the possibility that it may indicate a recurrence of his malignancy. Patient also with 3+ blood noted on UA on admit (none on repeat UA) Urology/heme/onc on consult as above -- appreciate recs Bone scan negative 07/13 Heme/onc to have note in chart today, planning outpt PET scan. Also pushed luis alberto yoo to [facility] for review/see if able to be seen sooner (6) Right leg DVT: Plan: Patient with RLE DVT diagnosed 03/2022 at [facility]. He was previously being treated with Eliquis which was discontinued secondary to cost. He was most recently started on Coumadin - thought to be at continued risk for VTE given h/o malignancy and decreased mobility due to ongoing back pain. INR supratherapeutic at 4.6. Patient denies obvious source of blood loss - melena/hematochezia or hematuria. He does have 3+ blood in UA. Fecal occult NEGATIVE Has been on Cipro - possibly contributing to supratherapeutic INR on presentation Held Coumadin for now as INR still elevated to 3.5 on 07/13 but down to 2.0 on AM labs and resumed coumadin for today. Can give dose lovenox to bridge if needed Would rec getting at least HH at d/c to check outpt INR to ensure stable once resumed to prevent highs (7) Hypertension: Plan: Patient with lower blood pressures in the ER Stable BPs, 122/73. Cr 1.15 and will hold off resuming lisinopril until tomorrow if needed -- last admission had been off whole stay and rec to stop lisinopril at d/c --> would plan to stop lisinopril at dc. BPs still stable 118/65 (8) Acute hyponatremia: Plan: Stable currently at 131 Monitor (9) KEV (acute kidney injury): Plan: Resolved w/ IVF Renal dose meds/avoid nephrotoxins as able BMP in AM Plan continued inpatient stay working on pain control monitor repeat urine/blood cultures, remaining on abx at present likely to remain inpatient through the weekend Admission and Anticipated Discharge Date Admission Date: July 11, 2022 Supervising Physician Co-Signing Physician Notes The patient was not seen by me. The chart was reviewed. Case discussed with JUMANA Foster. Agree with assessment and plan Subjective eval this afternoon, improved. back to baseline mentation. resting in bed and reported actually getting some rest. discussed flexeril for spasm type pain and to trial next time. No cp/sob. +BM last evening. Moving small amounts at a time. No further fevers/chills. Discussed repeat urine/blood cultures pending but urology rec continuing course at present. He notes he is feeling better as well and per prior admit in [place] his legs were feeling better when he was getting better and that's how he feels at present. Discussed monitoring pain control over the weekend/cultures but likely no dc until Sunday at earliest to ensure no issues w/ pain meds/fills at d/c. Questions/concerns addressed at this time. Physical Exam Physical Exam: General: WD male resting in bed, appears more comfortable on exam. alert/oriented to person/place/time, states he somewhat remembers yesterday HEENT: head normocephalic, atraumatic, +facial hair, mm slightly dry, trachea midline Resp: CTA, diminished in bases, no w/c, on room air 97% CV: regular rythm, slightly tachy to low 100s, no significant m/r/g, 1+ b/l LE edema GI: +BS, soft/NT urostomy w/ yellow urine draining MSK/NEURO: pain w/ flexion/extension of the left hip but increased ROM, less pain w/ doing such strength equal plantar/dorsiflexion bilaterally Psych: AOx3, cooperative with exam, asking about second opinion Results & Data Results & Data Vital Signs (Past 12 Hours) Vital Signs Temp Pulse Pulse Resp BP Pulse Ox O2 Del Method 07/14/22 07:22 102 H 07/14/22 04:17 116 H 07/14/22 04:54 37.0 C 07/14/22 03:17 37.4 C 131 H 18 111/69 95 Room Air 07/13/22 22:01 125 H 07/13/22 23:27 37.1 C 123 H 20 133/79 98 Room Air Laboratory Results 07/14/22 07/14/22 07/14/22 Range/Units 06:44 06:44 06:44 WBC 12.78 H (4.8-10.8) K/ul RBC 3.11 L (4.70-6.10) M/uL Hgb 8.1 L (14.0-18.0) g/dl Hct 26.2 L (42.0-52.0) % MCV 84.2 (80.0-100.0) fL MCH 26.0 (25.0-34.0) pg MCHC 30.9 L (32.0-36.0) g/dL RDW Std Deviation 52.6 H (36.4-46.3) fL RDW Coeff of Reina 17.1 H (11.5-14.5) % Plt Count 221 (130-400) K/uL MPV 10.4 (9.4-12.4) fL Immature Gran % (Auto) 1.0 % Neut % (Auto) 77.1 % Lymph % (Auto) 10.3 % [place] % (Auto) 10.8 % Eos % (Auto) 0.5 % Baso % (Auto) 0.3 % Neut # (Auto) 9.84 H (1.40-6.50) K/uL Lymph # (Auto) 1.32 (1.2-3.4) K/uL [place] # (Auto) 1.38 H (0.11-0.59) K/uL Eos # (Auto) 0.07 (0-0.50) K/uL Baso # (Auto) 0.04 (0-0.2) K/uL Immature Gran # (Auto) 0.13 (0.01-0.20) K/uL PT 20.6 H (9.0-12.0) Seconds INR 2.0 H (0.9-1.1) Sodium 131 L (136-145) mmol/L Potassium 4.3 (3.5-5.1) mmol/L Chloride 104 (98-107) mmol/L Carbon Dioxide 18 L (21-32) mmol/L Anion Gap 9 (3-11) BUN 25 H (6-23) mg/dl Creatinine 1.16 (0.6-1.4) mg/dl Est Cr Clr Drug Dosing 74.8 ml/min Est GFR ( Amer) 74.6 ml/min Est GFR (Non-Af Amer) 64.3 ml/min BUN/Creatinine Ratio 21.6 H (10-20) Glucose 118 H (70-99(Fasting)) mg/dl Calcium 9.6 (8.6-10.3) mg/dl Magnesium 1.6 L (1.7-2.4) mg/dl Total Bilirubin 0.4 (0.2-1.0) mg/dl Direct Bilirubin 0.1 (0-0.2) mg/dl AST 27 (13-39) U/L ALT 23 (7-52) U/L Alkaline Phosphatase 137 H (34-104) U/L Total Protein 6.7 (6.0-8.3) gm/dl Albumin 2.7 L (3.4-5.0) gm/dl Procalcitonin (0-0.5) ng/ml Urine Color Urine Appearance (Clear) Urine pH (4.5-7.5) Ur Specific [place] (1.000-1.030) Urine Protein (Negative) Urine Glucose (UA) (Negative) Urine Ketones (Negative) Urine Blood (Negative) Urine Nitrite (Negative) Urine Bilirubin (Negative) Urine Urobilinogen (Negative) Ur Leukocyte Esterase (Negative) Urine WBC (Auto) (0-5) /hpf Urine RBC (Auto) (0-4) /hpf U Hyaline Cast (Auto) (0-5) /lpf U Epithel Cells (Auto) (0-5) /lpf Urine Bacteria (Auto) (Negative) Granular Casts (0) /lpf Stool Occult Bld Scrn (Negative) 07/13/22 07/13/22 07/13/22 Range/Units 21:22 17:47 17:09 WBC (4.8-10.8) K/ul RBC (4.70-6.10) M/uL Hgb (14.0-18.0) g/dl Hct (42.0-52.0) % MCV (80.0-100.0) fL MCH (25.0-34.0) pg MCHC (32.0-36.0) g/dL RDW Std Deviation (36.4-46.3) fL RDW Coeff of Reina (11.5-14.5) % Plt Count (130-400) K/uL MPV (9.4-12.4) fL Immature Gran % (Auto) % Neut % (Auto) % Lymph % (Auto) % [place] % (Auto) % Eos % (Auto) % Baso % (Auto) % Neut # (Auto) (1.40-6.50) K/uL Lymph # (Auto) (1.2-3.4) K/uL [place] # (Auto) (0.11-0.59) K/uL Eos # (Auto) (0-0.50) K/uL Baso # (Auto) (0-0.2) K/uL Immature Gran # (Auto) (0.01-0.20) K/uL PT (9.0-12.0) Seconds INR (0.9-1.1) Sodium (136-145) mmol/L Potassium (3.5-5.1) mmol/L Chloride (98-107) mmol/L Carbon Dioxide (21-32) mmol/L Anion Gap (3-11) BUN (6-23) mg/dl Creatinine (0.6-1.4) mg/dl Est Cr Clr Drug Dosing ml/min Est GFR ( Amer) ml/min Est GFR (Non-Af Amer) ml/min BUN/Creatinine Ratio (10-20) Glucose (70-99(Fasting)) mg/dl Calcium (8.6-10.3) mg/dl Magnesium (1.7-2.4) mg/dl Total Bilirubin (0.2-1.0) mg/dl Direct Bilirubin (0-0.2) mg/dl AST (13-39) U/L ALT (7-52) U/L Alkaline Phosphatase (34-104) U/L Total Protein (6.0-8.3) gm/dl Albumin (3.4-5.0) gm/dl Procalcitonin 0.84 H (0-0.5) ng/ml Urine Color Yellow Urine Appearance Cloudy A (Clear) Urine pH 5.5 (4.5-7.5) Ur Specific [place] 1.015 (1.000-1.030) Urine Protein 1+ H (Negative) Urine Glucose (UA) Negative (Negative) Urine Ketones Negative (Negative) Urine Blood Negative (Negative) Urine Nitrite Negative (Negative) Urine Bilirubin Negative (Negative) Urine Urobilinogen Negative (Negative) Ur Leukocyte Esterase Negative (Negative) Urine WBC (Auto) 10-30 H (0-5) /hpf Urine RBC (Auto) 0-4 (0-4) /hpf U Hyaline Cast (Auto) 1-5 (0-5) /lpf U Epithel Cells (Auto) 0-5 (0-5) /lpf Urine Bacteria (Auto) 1+ H (Negative) Granular Casts 1-5 H (0) /lpf Stool Occult Bld Scrn Negative (Negative) Diagnostic Findings Bone Scan Nuclear Medicine 07/13/22 11:00 WHOLE BODY BONE SCAN HISTORY: bladder ca RADIOTRACER: 26.7 mCi Tc-99m MDP STUDY/IMAGES: Planar anterior and posterior whole body imaging was performed 3 hours following the intravenous administration of radiotracer. COMPARISON: Abdomen and pelvis CT 07/11/2022. FINDINGS: Focal areas of mild radiotracer uptake within the shoulders, sternoclavicular joints, sacroiliac joints, symphysis pubis, knees, and ankles suggestive of degenerative change. Otherwise, no suspicious areas of radiotracer uptake identified to suggest metastatic disease. IMPRESSION: No suspicious areas of radiotracer uptake to suggest skeletal metastatic disease. ACT 112: Negative or not required by law. Electronically signed by: Joshua Marcus M.D. 07/13/2022 11:26 AM Chest X-Ray 07/13/22 16:39 XR chest 1V portable CLINICAL HISTORY: fever, AMS COMPARISON STUDY: Chest radiograph December 14, 2021. FINDINGS: Left internal jugular [id number] remains in place. Elevation of the left hemidiaphragm is unchanged. Left basilar opacity favors atelectasis. There is no evidence for pulmonary edema. Cardiomediastinal silhouette is normal. There is mild distention of the stomach. IMPRESSION: 1. Stable elevation of the left hemidiaphragm with left basilar opacity suggesti ve of atelectasis. 2. Mild gaseous distention of the stomach. ACT 112: Negative or not required by law. Electronically signed by: Aubrey Pavon M.D. 07/13/2022 5:54 PM KUB X-Ray 07/13/22 16:39 KUB CLINICAL HISTORY: fever, AMS, eval SBO vs ileus COMPARISON STUDY: CT of the abdomen and pelvis July 11, 2022. FINDINGS: Surgical clips from prostatectomy are noted. The bowel gas pattern is normal. No renal calculi are identified. IMPRESSION: No evidence for a bowel obstruction. ACT 112: Negative or not required by law. Electronically signed by: Aubrey Pavon M.D. 07/13/2022 5:56 PM PG Care Time/CCT Total # of Minutes Spent Total Time Spent with Patient: Total time spent is greater than 50% in coordination of care (as documented) at patient's floor/unit and/or counseling patient: Coding Level of Care Code 25342 SUB INP/OBS CARE 3/50MIN Diagnoses Encephalopathy G93.40 Back pain M54.9 Anemia requiring transfusions D64.9 Complicated urinary tract infection N39.0 Urothelial carcinoma of bladder C67.9 Right leg DVT I82.401 Hypertension I10 Acute hyponatremia E87.1 KEV (acute kidney injury) N17.9
[2022-07-14 07:43] LABS: Albumin Level 2.7 gm/dl (3.4-5.0); BUN Creatinine Ratio 21.6 (10-20); Bilirubin Direct 0.1 mg/dl (0-0.2); Bilirubin,Total 0.4 mg/dl (0.2-1.0); Calcium 9.6 mg/dl (8.6-10.3); Creatinine Clr Calc Pharmacy 74.8 ml/min; Est GFR (African American) 74.6 ml/min; Est GFR (Non-African American) 64.3 ml/min; Magnesium 1.6 mg/dl (1.7-2.4); Potassium 4.3 mmol/L (3.5-5.1); Total Protein 6.7 gm/dl (6.0-8.3)
[2022-07-14 07:59] LABS: Prothrombin Time 20.6 Seconds (9.0-12.0)
[2022-07-14] MEDS ORDERED: SODIUM CHLORIDE 0.9% 500 ML IV SCH (08:00)
[2022-07-14] MEDS: MAGNESIUM SULFATE / D5W 1 GM/100 ML BAG IV SCH ×2 (08:05→10:24)
[2022-07-14] MEDS: SENNA 8.6 MG TAB PO SCH (08:06)
[2022-07-14] MEDS: POLYETHYLENE (MIRALAX) 17 GM PACK PO SCH ×3 (08:06→21:58)
[2022-07-14] MEDS: GABAPENTIN 300 MG CAP PO SCH ×3 (08:06→21:58)
[2022-07-14] MEDS: oxyCODONE HCL IR 5 MG TAB (IMMEDIATE RELEASE) PO PRN ×2 (08:08→13:10)
--- NOTE | 2022-07-14 09:45 | Urology Progress Note ---
Date of Service July 14, 2022 Assessment & Plan (1) Complicated urinary tract infection: (2) KEV (acute kidney injury): (3) Hx of bladder cancer: Plan 67yo/M with a history of muscle invasive bladder cancer who underwent radical cystoprostatectomy, bilateral pelvic lymph node dissection and ilieal conduit urinary diversion performed by Dr. Lyman at [facility] on 04/05/22 admitted to the medicine service for complicated UTI, KEV, anemia. Urology asked to reassess patient today due to fever yesterday. Febrile yesterday afternoon, Tmax 38.4. Afebrile this AM, remains tachycardic. Labs show - WBC 12.78, creatinine 1.16, hemoglobin 8.1. Urine culture 07/11 showed low counts of mixed probable skin krystal. Blood cultures 07/11 showing no growth to date. Repeat cultures are pending. Currently on meropenem - follow cultures. Urostomy intact, draining clear yellow urine. Continue to monitor. His kidneys do not appear obstructed on his CT. No acute intervention at this time. Continue supportive care and antibiotic therapy. Oncology and palliative care were consulted given concern for recurrence on CT imaging. Urology will follow peripherally. Admission and Anticipated Discharge Date Admission Date: July 11, 2022 Subjective Patient seen and examined at bedside this morning. He is awake and resting in bed. Reports low back pain. No abdominal pain. Urostomy patent and draining yellow urine. No fever or chills today. No nausea or vomiting. Review of Systems Constitutional: as per Subjective / HPI Gastrointestinal: as per Subjective / HPI Genitourinary: + as per Subjective / HPI Physical Exam Constitutional: no acute distress Eyes: no scleral abnormality Respiratory: normal respiratory effort; no respiratory distress and no labored breathing Cardiovascular: Rate/Rhythm: + tachycardic Gastrointestinal (Abdomen): Inspection/Auscultation: abdomen normal to inspection; abdomen not distended Percussion/Palpation: abdomen soft; abdomen nontender Musculoskeletal: Head/Neck/Chest: normocephalic Neurologic: moves all extremities and awake Psychiatric: A+Ox3, euthymic affect Genitourinary: Urostomy in place with clear yellow urine Results & Data Vital Signs (Past 12 Hours) Vital Signs Temp Pulse Pulse Resp BP Pulse Ox O2 Del Method 07/14/22 08:00 36.6 C 107 H 19 97/58 L 97 Room Air 07/14/22 07:22 102 H 07/14/22 04:17 116 H 07/14/22 04:54 37.0 C 07/14/22 03:17 37.4 C 131 H 18 111/69 95 Room Air 07/13/22 22:01 125 H 07/13/22 23:27 37.1 C 123 H 20 133/79 98 Room Air PG Care Time/CCT Total # of Minutes Spent Total Time Spent with Patient: Total time spent is greater than 50% in coordination of care (as documented) at patient's floor/unit and/or counseling patient: Coding Level of Care Code 18787 SUB INP/OBS CARE 03/22MIN Diagnoses Complicated urinary tract infection N39.0 KEV (acute kidney injury) N17.9 Hx of bladder cancer Z85.51
[2022-07-14] MEDS: CYCLOBENZAPRINE HCL 10 MG TAB PO PRN (14:07)
[2022-07-14] MEDS ORDERED: fentaNYL 50 MCG/HR TDSY TD SCH (15:14)
[2022-07-14] MEDS ORDERED: HYDROmorphone INJ 0.5 MG/0.5 ML SYR IV PRN (15:16)
--- NOTE | 2022-07-14 15:20 | Palliative Care Progress Note ---
Date of Service July 14, 2022 Assessment & Plan (1) Palliative care by specialist: (2) Cancer related pain: Plan: pt is using several doses of Dilaudid for BTP, in past 48 hrs is averaging nearly 10mg IV Dilaudid Will increase TDF to 50mcg q3days and will modify prn Dilaudid for BTP as follows: - Dilaudid 0.5mg IV q1h prn mod to severe cancer pain - Dilaudid 1mg IV q1h prn very severe pain - Hold parameters added to both: Hold for somnolence or RR<14/min, document RR with administration Orders written Brief Goals of care discussion x 15min: patient would like [facility] doc Dr Lyman to review imaging, will ask to have those images pushed t their PACS. Also, dtr will have CD copies of all imaging from this admission to bring with them to [facility] follow up visit. Pt states he knows people have advised about ?progression but he wants to have his PS doc review as he has a very strong rapport with her and a lot of trust in her. Dtr does not feel pt is having trouble with denial, just that he has build such a strong partnership with Dr Lyman that he wants to hear her review of imaging. Also dtr noted issue with his Rx coverage lacking. I advised CM who notes he has a managed medicare plan with [employer] - unclear why he would not have rx coverage but she will investigate and follow up with pt and family. Will continue to follow for cancer pain mgt. (3) Acute pyelonephritis: (4) Urothelial carcinoma of bladder: (5) Complicated urinary tract infection: (6) KEV (acute kidney injury): Plan Meds changed as noted above GOC discussion as noted above Imaging pushed to [facility] PACS Updated nursing, CM and primary team Thank you for allowing us to participate in the ongoing care of this patient. Please don't hesitate to call or page with any additional concerns. Dr. Thalia Guevara DNP Director, Palliative Care Admission and Anticipated Discharge Date Admission Date: July 11, 2022 Subjective Pain somewhat better with dilaudid 1mg but then dose reduced to 0.5mg after fever/confusion episode that resolved within few hours. he remains on abtx. he is feeling aaox3 this afternoon. dtr at bedside. no n/v/dc. had a bm last night appetite excellent dtr shares pt does not have prescription coverage and asking for CM assistance. Review of Systems Review of Systems: All systems reviewed & are unremarkable except as noted in Subjective Physical Exam Constitutional: WD/WN, vitals as above Eyes: PERRL, conjunctivae normal, anicteric sclerae ENMT: external ear and nose normal, oropharynx normal (poor dentition) Neck: trachea midline, no thyromegaly Respiratory: normal effort Musculoskeletal: TTP bilat lower lumbar spine LEFT > Right with palpable parapsinal spasms, radiating to anterior left groin with deep pressure; +anterior left inguinal tenderness with radiation down into thigh/interior thigh. DECREASED strength LLE > RLE, unable to life LLE under resistance. Newcomer Hostess bilat equal. Skin: no rashes, warm and dry Neurologic: PERRL, EOMI, accommodation nl, no face palsy, no dysarthria Psychiatric: A+Ox3, euthymic affect Results & Data Vital Signs (Past 12 Hours) Vital Signs Temp Pulse Pulse Resp BP Pulse Ox O2 Del Method 07/14/22 11:24 36.9 C 110 H 19 100/65 97 Room Air 07/14/22 08:00 36.6 C 107 H 19 97/58 L 97 Room Air 07/14/22 07:22 102 H 07/14/22 04:17 116 H 07/14/22 04:54 37.0 C Laboratory Results reviewed Diagnostic Findings reviewed PG Care Time/CCT Total # of Minutes Spent Total Time Spent: 60 Total Time Spent with Patient: Total time spent is greater than 50% in coordination of care (as documented) at patient's floor/unit and/or counseling patient: Coding [place] [address] SUB INP/OBS CARE 3/50MIN Patient Type Established History Comprehensive Exam Comprehensive Medical Decision Making High Complexity Diagnoses Palliative care by specialist Z51.5 Cancer related pain G89.3 Acute pyelonephritis N10 Urothelial carcinoma of bladder C67.9 Complicated urinary tract infection N39.0 KEV (acute kidney injury) N17.9
[2022-07-14] MEDS: WARFARIN SOD 5 MG TAB PO SCH (17:40)
[2022-07-14] MEDS: MAGNESIUM OXIDE 400 MG TAB PO SCH (21:58)
[2022-07-14] MEDS ORDERED: LACTATED RINGER'S 500 ML IV ONE (23:06)
[2022-07-15] MEDS: CHECK fentaNYL PATCH PLACEMENT SCH ×3 (01:23→16:40)
[2022-07-15] MEDS: MEROPENEM 500 MG in SYRINGE 0 ML IV SCH ×4 (04:48→22:04)
[2022-07-15] MEDS: HYDROmorphone INJ 1 MG/ML SYRINGE IV PRN ×6 (04:55→22:04)
--- NOTE | 2022-07-15 07:47 | Hospitalist Progress Note ---
Date of Service July 15, 2022 the patient was seen by me. The chart was reviewed. Case discussed with JUMANA Foster. Agree with assessment and plan Assessment & Plan (1) Back pain: Plan: Does have some aspect of lumbar radiculopathy, likely at level L3 Ongoing issues w/ pain control Concerns for stu mets given CTAP w/ progressive findings Bone scan completed, NEGATIVE for uptake at present time Heme/onc on consult - planning outpt PET scan. Patient has upcoming appt Urology at [place]. CD burnt but also called radiology to push imaging for eval Palliative on consult for pain control as well --> they increased fentanyl patch to 50mcg q3d and will monitor response. Flexeril added. Unable to use NSAIDs Dilaudid IV available, added PO per discussion w palliative Reports moving bowels, KUB w/o obstruction Was wanting f/u pain management for consideration SI injections once cleared up from UTI Seen by supervising provider today who added steroids IV for sacroileitis type picture and to monitor PT/OT consulted (2) Fever: Plan: continued fevers, ?if from meropenem vs infection procal checked and improved from prior ?from underlying malignancy given concerns for progressive findings on CTAP on admission temp up to 39C last evening, tylenol available prn wbc elevations about where they have been CXR w/ atelectasis, KUB w/o obstruction Discussed w/ supervising provider who examined patient as well today given concerns for abdominal discomfort/repeat CTAP and would like to hold off for now Repeated urine culture no growth/blood cultures remain without growth can also consider reaching out to ID on Sunday to discuss prior cultures/possible underlying bacteremia but unable to have + cultures given continued abx use ?consider switching to IV cipro if possibly related to abx use? will continue abx for now (3) Encephalopathy: Plan: developed acute onset confusion/fever/worsening tachycardia w/ HRs to upper 130s (sinus) after increased pain medications 07/13 and had received Oxycodone IR 15mg and increased dilaudid to 1mg IV prn in addition to the newly started dilaudid --> eval and knew was year 2022, but thought initially in [place]. daughter at bedside w/ concerns this is how he was before he got septic at [facility] Had L sided CVA tenderness KUB/CXR unrevealing for infectious etiology, procal decreased compared to prior. WBC about the same. No further fever. ?medication related?. Did have increased dose meropenem but was on 07/12 ?from increased fentanyl absorption as was using w/ heating pad day prior Continuing abx for UTI Ammonia 25, VBG w/o CO2 retention Repeat Blood/urine cx pending -- UA w/ 1+ bacteria, 10-30 WBC< no epi. Also noted granular casts. Was given IVF bolus for tachycardia w/ improvement in rates Urology consult appreciated CURRENTLY RESOLVED/STABLE but continues to spike temps/elevated HRs as above (4) Anemia requiring transfusions: Plan: Patient with symptomatic anemia - Hgb=6.7, Hct=21.6. Unclear source although urinary is most likely given his medical history, 3+ blood on UA and dc on coumadin due to cost issues w/ prior Eliquis use x2 months for R leg DVT s/p surgery for bladder ca s/p 2 u PRBC for hgb 6.7 -> 8.3 on repeat and remained stable but 7.9 today and had been given multiple IV fluid bolus INR 4.6 on admit, coumadin held (suspected elevation from Cipro outpt use for UTI) INR 3.5--> 2.0 and coumadin had been resumed. INR 1.4 on AM labs and given dose of Lovenox SQ to cover and will monitor INR in AM CTAP on admit w/ concerns met disease as above -- PET scan planned outpt. Attempting sooner f/u with [facility] Urology fecal occult NEGATIVE Monitor CBC/INR in AM (5) Complicated urinary tract infection: Plan: Patient with recent UTI -culture from 07/04/22 POSITIVE for Enterobacter cloacae. Prior urine culture from 06/22/22 POSITIVE for Enterobacter faecalis. Patient has been on Ciprofloxacin with last dose 07/12/22. CT of the abdomen with [id number] left hydroureteronephrosis with urothelial thickening and enhancement in the left ureter as well as heterogenous enhancement of the left kidney with mild surrounding infiltration. UA on admit did not strongly support infection at time of presentation, HOWEVER had been on Cipro by Dr Coon and could have been falsely negative Culture from admit w/ three types oransims, all low counts and prob skin krystal Repeat urine cx prior evening did appear like it would have growth, no epi, but cultures NO GROWTH Will ask urology about weighing in again tomorrow Procal did improve on repeat w/ continued abx Consider reaching out to ID Sunday (6) Urothelial carcinoma of bladder: Plan: Patient with urothelial carcinoma of the bladder s/p cystectomy with ureterostomy tube in place. He follows predominantly with Oncology at [facility]. Patient had a CT of the abdomen/pelvis with IV contrast performed which revealed a soft tissue implant identified in the cystectomy bed as well as enlarging retroperitoneal and iliac chain LAD as compared to image from 06/21/22. Findings are most concerning for progression of metastatic disease. CT findings briefly discussed with patient including the possibility that it may indicate a recurrence of his malignancy. Patient also with 3+ blood noted on UA on admit (none on repeat UA) Urology/heme/onc on consult as above -- appreciate recs Bone scan negative 07/13 Heme/onc to have note in chart today, planning outpt PET scan. Also pushed imaging to [facility] for review/see if able to be seen sooner - no note yet (7) Right leg DVT: Plan: Patient with RLE DVT diagnosed 03/2022 at [facility]. He was previously being treated with Eliquis which was discontinued secondary to cost. He was most recently started on Coumadin - thought to be at continued risk for VTE given h/o malignancy and decreased mobility due to ongoing back pain. INR supratherapeutic at 4.6. Patient denies obvious source of blood loss - melena/hematochezia or hematuria. He does have 3+ blood in UA. Fecal occult NEGATIVE Has been on Cipro - possibly contributing to supratherapeutic INR on presentation Held Coumadin for now as INR still elevated to 3.5 on 07/13 but down to 2.0 on AM labs and resumed coumadin but INR 1.4 and lovenox ordered to bridge (fecal occult was negative) 1mg/kg BID and will monitor INR in AM Would rec getting at least HH at d/c to check outpt INR to ensure stable once resumed to prevent highs (8) Hypertension: Plan: Patient with lower blood pressures in the ER Lisinopril on hold, kidney function back to baseline Prior admits rec to d/c lisinopril -- BPs on lower side and will continue to hold and likely can dc at discharge (9) Acute hyponatremia: Plan: Stable currently at 130, etoh use in remote past Monitor (10) KEV (acute kidney injury): Plan: Resolved w/ IVF Renal dose meds/avoid nephrotoxins as able monitor bmp Plan continued inpatient stay, continue abx supervising provider added solumedrol IV, added metoprolol given continued elevated HR but has been sinus monitor repeated fevers, consider repeating CT imaging tomorrow for further eval Admission and Anticipated Discharge Date Admission Date: July 11, 2022 Subjective eval around lunch, sitting up at side of bed. pain not controlled, had patch dose increased but oral options no longer on chart. discussed w/ palliative and entered oral Dilaudid as cheaper option for him at d/c and IV effective but quick to wear off. Moving his bowels but still having abdominal pressure, more suprapubic/LLQ, no rigidity/guarding. L sided CVA tenderness/SI joint discomfort Discussed Dr Greta umanzor -- was just seen by him -- and ordered IV steroids. Discussed will monitor as they would like to hold off repeat CTAP for now and monitor but if continued spiking temps will repeat HRs up to 130s at times when up/moving around in bed. Will schedule tartrate BID while giving steroids No CP/SOB reported. He had not gotten any PO pain meds as were stopped last night. Reordered oral dilaudid. Physical Exam Physical Exam: General: WD male resting in bed, appears more comfortable on exam but reporting feeling worse since not getting oral options. alert/oriented to person/place/time, HEENT: head normocephalic, atraumatic, +facial hair, mmm, eating lunch/drinking, trachea midline Resp: CTA, diminished in bases, no w/c, on room air 97% CV: regular rhythm, tachycardic to 110-120s, no significant m/r/g, 1+ b/l LE edema, calves nontender GI: +BS, soft, slightly tender suprapubic/LLQ urostomy w/ yellow urine draining MSK/NEURO: pain w/ flexion/extension of the left hip but increased ROM, less pain w/ doing such strength equal plantar/dorsiflexion bilaterally Psych: AOx3, cooperative with exam Results & Data Results & Data Vital Signs (Past 12 Hours) Vital Signs Temp Pulse Pulse Resp BP Pulse Ox O2 Del Method 07/15/22 05:59 113 H 07/15/22 05:07 36.9 C 108 H 18 113/70 96 Room Air 07/15/22 02:23 37 C 118 H 16 94/56 L 94 Room Air 07/14/22 23:56 37 C 123 H 18 120/62 94 Room Air 07/14/22 23:39 138 H 07/14/22 23:39 Room Air 07/14/22 22:28 39 C H 140 H 18 120/72 93 Room Air Laboratory Results 07/15/22 07/15/22 07/15/22 Range/Units 08:19 08:19 08:19 WBC (4.8-10.8) K/ul RBC (4.70-6.10) M/uL Hgb (14.0-18.0) g/dl Hct (42.0-52.0) % MCV (80.0-100.0) fL MCH (25.0-34.0) pg MCHC (32.0-36.0) g/dL RDW Std Deviation (36.4-46.3) fL RDW Coeff of Reina (11.5-14.5) % Plt Count (130-400) K/uL MPV (9.4-12.4) fL Immature Gran % (Auto) % Neut % (Auto) % Lymph % (Auto) % Schuyler % (Auto) % Eos % (Auto) % Baso % (Auto) % Neut # (Auto) (1.40-6.50) K/uL Lymph # (Auto) (1.2-3.4) K/uL Schuyler # (Auto) (0.11-0.59) K/uL Eos # (Auto) (0-0.50) K/uL Baso # (Auto) (0-0.2) K/uL Immature Gran # (Auto) (0.01-0.20) K/uL Anisocytosis PT 15.0 H (9.0-12.0) Seconds INR 1.4 H (0.9-1.1) Sodium 130 L (136-145) mmol/L Potassium 4.6 (3.5-5.1) mmol/L Chloride 102 (98-107) mmol/L Carbon Dioxide 21 (21-32) mmol/L Anion Gap 7 (3-11) BUN 23 (6-23) mg/dl Creatinine 0.99 (0.6-1.4) mg/dl Est Cr Clr Drug Dosing 88.4 ml/min Est GFR ( Amer) 90.3 ml/min Est GFR (Non-Af Amer) 77.9 ml/min BUN/Creatinine Ratio 23.2 H (10-20) Glucose 120 H (70-99(Fasting)) mg/dl Calcium 9.5 (8.6-10.3) mg/dl Magnesium 1.7 (1.7-2.4) mg/dl Total Bilirubin 0.4 (0.2-1.0) mg/dl Direct Bilirubin 0.1 (0-0.2) mg/dl AST 29 (13-39) U/L ALT 29 (7-52) U/L Alkaline Phosphatase 130 H (34-104) U/L Total Protein 6.8 (6.0-8.3) gm/dl Albumin 2.6 L (3.4-5.0) gm/dl 25-OH Vitamin D Total 36.1 (30-100) ng/ml 07/15/22 Range/Units 08:19 WBC 14.33 H (4.8-10.8) K/ul RBC 3.01 L (4.70-6.10) M/uL Hgb 7.9 L (14.0-18.0) g/dl Hct 25.8 L (42.0-52.0) % MCV 85.7 (80.0-100.0) fL MCH 26.2 (25.0-34.0) pg MCHC 30.6 L (32.0-36.0) g/dL RDW Std Deviation 53.1 H (36.4-46.3) fL RDW Coeff of Reina 16.9 H (11.5-14.5) % Plt Count 225 (130-400) K/uL MPV 10.5 (9.4-12.4) fL Immature Gran % (Auto) 1.3 % Neut % (Auto) 79.7 % Lymph % (Auto) 7.6 % Schuyler % (Auto) 10.7 % Eos % (Auto) 0.5 % Baso % (Auto) 0.2 % Neut # (Auto) 11.43 H (1.40-6.50) K/uL Lymph # (Auto) 1.09 L (1.2-3.4) K/uL Schuyler # (Auto) 1.53 H (0.11-0.59) K/uL Eos # (Auto) 0.07 (0-0.50) K/uL Baso # (Auto) 0.03 (0-0.2) K/uL Immature Gran # (Auto) 0.18 (0.01-0.20) K/uL Anisocytosis Present PT (9.0-12.0) Seconds INR (0.9-1.1) Sodium (136-145) mmol/L Potassium (3.5-5.1) mmol/L Chloride (98-107) mmol/L Carbon Dioxide (21-32) mmol/L Anion Gap (3-11) BUN (6-23) mg/dl Creatinine (0.6-1.4) mg/dl Est Cr Clr Drug Dosing ml/min Est GFR ( Amer) ml/min Est GFR (Non-Af Amer) ml/min BUN/Creatinine Ratio (10-20) Glucose (70-99(Fasting)) mg/dl Calcium (8.6-10.3) mg/dl Magnesium (1.7-2.4) mg/dl Total Bilirubin (0.2-1.0) mg/dl Direct Bilirubin (0-0.2) mg/dl AST (13-39) U/L ALT (7-52) U/L Alkaline Phosphatase (34-104) U/L Total Protein (6.0-8.3) gm/dl Albumin (3.4-5.0) gm/dl 25-OH Vitamin D Total (30-100) ng/ml Diagnostic Findings Chest X-Ray 07/15/22 07:48 XR chest 1V portable HISTORY: fever COMPARISON: Chest 07/13/2022. FINDINGS: No pneumothorax. No pleural effusions. The cardiac silhouette is normal in size. There is chronic elevation the left hemidiaphragm with left basilar linear densities. This favors subsegmental atelectasis. Otherwise, no new focal lung consolidations. No evidence for pulmonary edema. Postoperative changes again noted within the distal left clavicle. A left jugular Port-A-Cath terminates in the proximal SVC. There are old, healed left-sided rib fractures. Mild gaseous distention of the stomach has improved. IMPRESSION: Stable elevation of the left hemidiaphragm with left basilar linear densities suggesting subsegmental atelectasis. Otherwise, no acute process within the chest. ACT 112: Negative or not required by law. Electronically signed by: Joshua Marcus M.D. 07/15/2022 10:20 AM PG Care Time/CCT Total # of Minutes Spent Total Time Spent with Patient: Total time spent is greater than 50% in coordination of care (as documented) at patient's floor/unit and/or counseling patient: Coding Level of Care Code 29704 SUB INP/OBS CARE 3/50MIN Diagnoses Back pain M54.9 Fever R50.9 Encephalopathy G93.40 Anemia requiring transfusions D64.9 Complicated urinary tract infection N39.0 Urothelial carcinoma of bladder C67.9 Right leg DVT I82.401 Hypertension I10 Acute hyponatremia E87.1 KEV (acute kidney injury) N17.9
[2022-07-15] MEDS: GABAPENTIN 300 MG CAP PO SCH ×3 (08:04→22:04)
[2022-07-15] MEDS: MAGNESIUM OXIDE 400 MG TAB PO SCH ×2 (08:04→22:04)
[2022-07-15] MEDS: POLYETHYLENE (MIRALAX) 17 GM PACK PO SCH ×3 (08:05→22:03)
[2022-07-15] MEDS: SENNA 8.6 MG TAB PO SCH (08:05)
[2022-07-15 08:46] LABS: Basophils # (auto) 0.03 K/uL (0-0.2); Basophils % (auto) 0.2 %; Eosinophils # (auto) 0.07 K/uL (0-0.50); Eosinophils % (auto) 0.5 %; Hematocrit (blood only) 25.8 % (42.0-52.0); Hemoglobin 7.9 g/dl (14.0-18.0); Immature Granulocytes # (auto) 0.18 K/uL (0.01-0.20); Immature Granulocytes % (auto) 1.3 %; Lymphocytes # (auto) 1.09 K/uL (1.2-3.4); Lymphocytes % (auto) 7.6 %; Mean Corpuscular Hemoglobin 26.2 pg (25.0-34.0); Mean Corpuscular Hgb Conc 30.6 g/dL (32.0-36.0); Mean Corpuscular Volume 85.7 fL (80.0-100.0); Mean Platelet Volume 10.5 fL (9.4-12.4); Monocytes # (auto) 1.53 K/uL (0.11-0.59); Monocytes % (auto) 10.7 %; Neutrophils # (auto) 11.43 K/uL (1.40-6.50); Neutrophils % (auto) 79.7 %; Platelet Count 225 K/uL (130-400); RDW Coefficient of Variation 16.9 % (11.5-14.5); RDW Standard Deviation 53.1 fL (36.4-46.3); Red Blood Count 3.01 M/uL (4.70-6.10); White Blood Count 14.33 K/ul (4.8-10.8)
[2022-07-15 09:02] LABS: Albumin Level 2.6 gm/dl (3.4-5.0); BUN Creatinine Ratio 23.2 (10-20); Bilirubin Direct 0.1 mg/dl (0-0.2); Bilirubin,Total 0.4 mg/dl (0.2-1.0); Calcium 9.5 mg/dl (8.6-10.3); Creatinine Clr Calc Pharmacy 88.4 ml/min; Est GFR (African American) 90.3 ml/min; Est GFR (Non-African American) 77.9 ml/min; Magnesium 1.7 mg/dl (1.7-2.4); Potassium 4.6 mmol/L (3.5-5.1); Total Protein 6.8 gm/dl (6.0-8.3)
[2022-07-15 09:04] LABS: Anisocytosis Present
[2022-07-15 09:14] LABS: INR 1.4 (0.9-1.1)
[2022-07-15] MEDS ORDERED: ENOXAPARIN 100 MG/1ML SYR SQ ONE (09:16)
[2022-07-15] MEDS ORDERED: MAGNESIUM SULFATE / D5W 1 GM/100 ML BAG IV ONE (09:18)
[2022-07-15] MEDS: CYCLOBENZAPRINE HCL 10 MG TAB PO PRN ×2 (09:47→17:44)
[2022-07-15] MEDS: DICLOFENAC SOD 1% GEL 100 GM TUBE EXT PRN (09:47)
--- NOTE | 2022-07-15 10:22 | XRay Report ---
XR chest 1V portable HISTORY: fever COMPARISON: Chest 07/13/2022. FINDINGS: No pneumothorax. No pleural effusions. The cardiac silhouette is normal in size. There is c hronic elevation the left hemidiaphragm with left basilar linear densities. This favors subsegmental atelectasis. Otherwise, no new focal lung consolidations. No evidence for pulmonary edema. Postoperat krysten changes again noted within the distal left clavicle. A left jugular Port-A-Cath terminates in the proximal SVC. There are old, healed left-sided rib fractures. Mild gaseous distention of the stomach has improved. IMPRESSION: Stable elevation of the left hemidiaphragm with left basilar linear densities suggesting subsegmental atelectasis. Otherwise, no acute process within the chest. ACT 112: Negative or not required by law. Electronically signed by: Joshua Marcus M.D. 07/15/2022 10:20 AM
[2022-07-15] MEDS ORDERED: oxyCODONE HCL IR 5 MG TAB (IMMEDIATE RELEASE) PO PRN (12:27)
[2022-07-15] MEDS ORDERED: SODIUM CHLORIDE 0.9% 250 ML IV ONE (12:43)
[2022-07-15] MEDS: methylPREDNISolone 60 MG in SYRINGE 0 ML IV SCH ×2 (13:43→17:45)
[2022-07-15] MEDS: PANTOprazole 40 MG TAB PO SCH (13:47)
[2022-07-15] MEDS: HYDROmorphone HCL 2 MG TAB PO PRN ×2 (13:47→17:44)
[2022-07-15] MEDS: WARFARIN SOD 5 MG TAB PO SCH (16:39)
[2022-07-15] MEDS ORDERED: METOPROLOL TARTRATE 25 MG TAB PO ONE (17:45)
[2022-07-15] MEDS ORDERED: METOPROLOL TARTRATE 25 MG TAB PO SCH (21:00)
[2022-07-15] MEDS: ENOXAPARIN 100 MG/1ML SYR SQ SCH (22:04)
[2022-07-16] MEDS: CHECK fentaNYL PATCH PLACEMENT SCH ×4 (00:17→23:15)
[2022-07-16] MEDS: HYDROmorphone INJ 1 MG/ML SYRINGE IV PRN ×6 (01:27→20:54)
[2022-07-16] MEDS: methylPREDNISolone 60 MG in SYRINGE 0 ML IV SCH ×3 (01:27→12:03)
[2022-07-16] MEDS: MEROPENEM 500 MG in SYRINGE 0 ML IV SCH ×2 (05:08→12:33)
[2022-07-16 06:17] LABS: Hemoglobin 7.5 g/dl (14.0-18.0); Mean Corpuscular Hemoglobin 26.2 pg (25.0-34.0); Mean Corpuscular Hgb Conc 31.3 g/dL (32.0-36.0); Mean Corpuscular Volume 83.9 fL (80.0-100.0); Mean Platelet Volume 10.6 fL (9.4-12.4); Platelet Count 206 K/uL (130-400); RDW Coefficient of Variation 16.9 % (11.5-14.5); RDW Standard Deviation 52.1 fL (36.4-46.3); Red Blood Count 2.86 M/uL (4.70-6.10); White Blood Count 14.08 K/ul (4.8-10.8)
[2022-07-16 06:34] LABS: Albumin Level 2.5 gm/dl (3.4-5.0); BUN Creatinine Ratio 33.7 (10-20); Bilirubin Direct 0.1 mg/dl (0-0.2); Bilirubin,Total 0.2 mg/dl (0.2-1.0); Calcium 9.5 mg/dl (8.6-10.3); Creatinine Clr Calc Pharmacy 101.7 ml/min; Est GFR (African American) 103.3 ml/min; Est GFR (Non-African American) 89.1 ml/min; Magnesium 1.9 mg/dl (1.7-2.4); Potassium 4.3 mmol/L (3.5-5.1); Total Protein 6.4 gm/dl (6.0-8.3)
[2022-07-16 06:39] LABS: Anisocytosis Present; Basophils # (auto) 0.01 K/uL (0-0.2); Basophils % (auto) 0.1 %; Immature Granulocytes # (auto) 0.12 K/uL (0.01-0.20); Immature Granulocytes % (auto) 0.9 %; Lymphocytes # (auto) 0.75 K/uL (1.2-3.4); Lymphocytes % (auto) 5.3 %; Monocytes # (auto) 0.36 K/uL (0.11-0.59); Monocytes % (auto) 2.6 %; Neutrophils # (auto) 12.84 K/uL (1.40-6.50); Neutrophils % (auto) 91.1 %
[2022-07-16 06:47] LABS: INR 1.4 (0.9-1.1); Prothrombin Time 15.1 Seconds (9.0-12.0)
--- NOTE | 2022-07-16 07:53 | Hospitalist Progress Note ---
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 which he reports has been working Palliative consulted -- fentanyl increased to 50mcg daily, PO dilaudid available as needed, IV for breakthrough Unable to use NSAIDs, flexeril available for spasm type pain KUB w/o obstruction and moving bowels PT/OT consulted (2) Fever: Plan: Fevers through evening 07/14, ?infection vs malignancy vs other procal trended down on repeat repeat urine/blood cultures negative had been on continuous meropenem since admission, prior cipro outpatient for enterobacter cloacae but no blood cultures between CXR w/ atelectasis, continue incentive spirometer Procal down to 0.73 (1.5 on admit, 0.84 on repeat) Discussed w/ patient and supervising provider who recommended STOPPING the meropenem as reports of fevers caused by such as well? will check resp biofire for completeness If he spikes another fever would reach out to ID in Am to discuss prior cultures/recommendations (3) Encephalopathy: Plan: Resolved, alert/oriented x3 at present Repeat cultures remain NGTD, procal decreased, VBG w/o sign CO2 retention ?if from fentanyl w/ heating pad/multiple IV/PO doses and improved since changes made CXR w/ atelectasis, KUB w/o obstruction STABLE ON EXAM AT PRESENT (4) Anemia requiring transfusions: Plan: hgb 6.7 on admit, INR 4.5 s/p 2u PRBC and 8.3 on repeat Coumadin has been resumed Fecal occult NEGATIVE Lovenox SQ to bridge given subtherapeutic INR -- pharmacy to file report as evening dose not given. No hypoxia at present, but slightly volume overloaded and will given lasix IV x 1 dose and monitor response Hgb 7.5 and will monitor response to diuretics May req repeat PRBC CBC/INR in AM (5) Complicated urinary tract infection: Plan: Patient with recent UTI -culture from 07/04/22 POSITIVE for Enterobacter cloacae. Prior urine culture from 06/22/22 POSITIVE for Enterobacter faecalis. Patient has been on Ciprofloxacin with last dose 07/12/22. CT of the abdomen with [id number] left hydroureteronephrosis with urothelial thickening and enhancement in the left ureter as well as heterogenous enhancement of the left kidney with mild surrounding infiltration. UA on admit did not strongly support infection at time of presentation, HOWEVER had been on Cipro by Dr Coon and could have been falsely negative Repeat culture without growth Urology on consult, signed off Procal almost normal Discontinuing abx at present -- monitor for any fevers, consider reaching out to ID in AM if occurs (6) Urothelial carcinoma of bladder: Plan: Patient with urothelial carcinoma of the bladder s/p cystectomy with ureterostomy tube in place. He follows predominantly with Oncology at [facility]. Patient had a CT of the abdomen/pelvis with IV contrast performed which revealed a soft tissue implant identified in the cystectomy bed as well as enlarging retroperitoneal and iliac chain LAD as compared to image from 06/21/22. Findings are most concerning for progression of metastatic disease. CT findings briefly discussed with patient including the possibility that it may indicate a recurrence of his malignancy. Patient also with 3+ blood noted on UA on admit (none on repeat UA) Urology/heme/onc on consult as above -- appreciate recs Bone scan negative 07/13 Heme/onc to have note in chart today, planning outpt PET scan. Also pushed [place] [facility] [place]see if able to be seen sooner - no note yet (7) Right leg DVT: Plan: Patient with RLE DVT [place]20[place] [facility] He was previously being treated with Eliquis which was discontinued secondary to cost. He was most recently started on Coumadin - thought to be at continued risk for VTE given h/o malignancy and decreased mobility due to ongoing back pain. INR supratherapeutic at 4.6. Patient denies obvious source of blood loss - melena/hematochezia or hematuria. He does have 3+ blood in UA. Fecal occult NEGATIVE Has been on Cipro - possibly contributing to supratherapeutic INR on presentation Held Coumadin for now as INR still elevated to 3.5 on 07/13 but down to 2.0 on AM labs and resumed coumadin but INR 1.4 and lovenox ordered to bridge (fecal occult was negative) 1mg/kg BID and will monitor INR in AM See above, did not get dose last evening -- monitor for hypoxia/CT chest if needed Would rec getting at least HH at d/c to check outpt INR to ensure stable once resumed to prevent highs (8) Hypertension: Plan: Patient with lower blood pressures in the ER , stable and improved at present since initiation of metoprolol 12.5mg BID for continued sinus tachycardia during admission lisinorpil on hold for Ruma but Cr back to baseline but will hold for today given lasix OF NOTE, recs last admit to dc lisinopril -- consider if BPs remaining stable off such (9) Acute hyponatremia: Plan: Stable currently at 134 -- improving w/ improved pain control/sterioids. cortisol AM not significantly low , etoh use in remote past Monitor (10) RUMA (acute kidney injury): Plan: Resolved w/ IVF Renal dose meds/avoid nephrotoxins as able monitor bmp Plan continued inpatient stay ABx dc, monitor for further fevers/consider reaching out to ID If repeat fevers, low threshold to repeat CTAP but per supervising provider to hold off at this time and d/c ABx/continue steroids and monitor for now monitor labs on repeat Admission and Anticipated Discharge Date Admission Date: July 11, 2022 Supervising Physician Co-Signing Physician Notes The patient was not seen by me. The chart was reviewed. Case discussed with JUMANA Foster. Agree with assessment and plan Subjective eval this morning, pain increased this morning but improved now. thinks the steroids have helped the back. no fevers since overnight 07/14. discussed dc abx and monitoring for further fevers. he thinks he still has an infection but ok w/ plan and if spikes fever will plan to reach out to ID tomorrow to review prior culture data and offer recommendations. He has concerns about swelling in his feet and infection but discussed IV steroids can contribute to swelling as well as low albumin. No chest pain/shortness of breath reported. Moving around in the room much better since starting steroids. Physical Exam Physical Exam: General: WD male sitting up at side of bed with friend present, NAD HEENT: head normocephalic, atraumatic, +facial hair, eating lunch, mmm port to chest looks good, no evidence for infection Resp: CTA, diminished slightly in the bases, 97% on RA CV: regular rhythm, rates 90-100, no signficiant m/r/g, 1+ b/l LE edema, calves nontender GI: +BS, soft/NT urostomy w/ yellow urine drainaing MSK/NEURO:decreased pain w/ flexion/extension of the left hip, increased ROM with less pain, no grimacing, strength equal plantar/dorsiflexion bilaterally Psych: AOx3, cooperative with exam Results & Data Results & Data Vital Signs (Past 12 Hours) Vital Signs Temp Pulse Pulse Resp BP Pulse Ox O2 Del Method 07/16/22 07:47 Room Air 07/16/22 05:58 93 H 07/16/22 02:46 36.4 C L 78 18 107/65 96 Room Air 07/15/22 23:08 98 H 07/15/22 22:04 36.5 C 87 18 117/75 95 Room Air Laboratory Results 07/16/22 07/16/22 07/16/22 Range/Units 05:54 05:54 05:54 WBC 14.08 H (4.8-10.8) K/ul RBC 2.86 L (4.70-6.10) M/uL Hgb 7.5 L (14.0-18.0) g/dl Hct 24.0 L (42.0-52.0) % MCV 83.9 (80.0-100.0) fL MCH 26.2 (25.0-34.0) pg MCHC 31.3 L (32.0-36.0) g/dL RDW Std Deviation 52.1 H (36.4-46.3) fL RDW Coeff of Reina 16.9 H (11.5-14.5) % Plt Count 206 (130-400) K/uL MPV 10.6 (9.4-12.4) fL Immature Gran % (Auto) 0.9 % Neut % (Auto) 91.1 % Lymph % (Auto) 5.3 % Ulster % (Auto) 2.6 % Eos % (Auto) 0.0 % Baso % (Auto) 0.1 % Neut # (Auto) 12.84 H (1.40-6.50) K/uL Lymph # (Auto) 0.75 L (1.2-3.4) K/uL Ulster # (Auto) 0.36 (0.11-0.59) K/uL Eos # (Auto) 0.00 (0-0.50) K/uL Baso # (Auto) 0.01 (0-0.2) K/uL Immature Gran # (Auto) 0.12 (0.01-0.20) K/uL Anisocytosis Present PT (9.0-12.0) Seconds INR (0.9-1.1) Sodium 134 L (136-145) mmol/L Potassium 4.3 (3.5-5.1) mmol/L Chloride 106 (98-107) mmol/L Carbon Dioxide 21 (21-32) mmol/L Anion Gap 7 (3-11) BUN 29 H (6-23) mg/dl Creatinine 0.86 (0.6-1.4) mg/dl Est Cr Clr Drug Dosing 101.7 ml/min Est GFR ( Amer) 103.3 ml/min Est GFR (Non-Af Amer) 89.1 ml/min BUN/Creatinine Ratio 33.7 H (10-20) Glucose 170 H (70-99(Fasting)) mg/dl Calcium 9.5 (8.6-10.3) mg/dl Magnesium 1.9 (1.7-2.4) mg/dl Total Bilirubin 0.2 (0.2-1.0) mg/dl Direct Bilirubin 0.1 (0-0.2) mg/dl AST 42 H (13-39) U/L ALT 36 (7-52) U/L Alkaline Phosphatase 121 H (34-104) U/L Total Protein 6.4 (6.0-8.3) gm/dl Albumin 2.5 L (3.4-5.0) gm/dl Procalcitonin 0.73 H (0-0.5) ng/ml Stl C. diff Tox B Gene (Neg) 07/16/22 07/15/22 Range/Units 05:54 18:25 WBC (4.8-10.8) K/ul RBC (4.70-6.10) M/uL Hgb (14.0-18.0) g/dl Hct (42.0-52.0) % MCV (80.0-100.0) fL MCH (25.0-34.0) pg MCHC (32.0-36.0) g/dL RDW Std Deviation (36.4-46.3) fL RDW Coeff of Reina (11.5-14.5) % Plt Count (130-400) K/uL MPV (9.4-12.4) fL Immature Gran % (Auto) % Neut % (Auto) % Lymph % (Auto) % Ulster % (Auto) % Eos % (Auto) % Baso % (Auto) % Neut # (Auto) (1.40-6.50) K/uL Lymph # (Auto) (1.2-3.4) K/uL Ulster # (Auto) (0.11-0.59) K/uL Eos # (Auto) (0-0.50) K/uL Baso # (Auto) (0-0.2) K/uL Immature Gran # (Auto) (0.01-0.20) K/uL Anisocytosis PT 15.1 H (9.0-12.0) Seconds INR 1.4 H (0.9-1.1) Sodium (136-145) mmol/L Potassium (3.5-5.1) mmol/L Chloride (98-107) mmol/L Carbon Dioxide (21-32) mmol/L Anion Gap (3-11) BUN (6-23) mg/dl Creatinine (0.6-1.4) mg/dl Est Cr Clr Drug Dosing ml/min Est GFR ( Amer) ml/min Est GFR (Non-Af Amer) ml/min BUN/Creatinine Ratio (10-20) Glucose (70-99(Fasting)) mg/dl Calcium (8.6-10.3) mg/dl Magnesium (1.7-2.4) mg/dl Total Bilirubin (0.2-1.0) mg/dl Direct Bilirubin (0-0.2) mg/dl AST (13-39) U/L ALT (7-52) U/L Alkaline Phosphatase (34-104) U/L Total Protein (6.0-8.3) gm/dl Albumin (3.4-5.0) gm/dl Procalcitonin (0-0.5) ng/ml Stl C. diff Tox B Gene Negative Cdiff Gene (Neg) PG Care Time/CCT Total # of Minutes Spent Total Time Spent with Patient: Total time spent is greater than 50% in coordination of care (as documented) at patient's floor/unit and/or counseling patient: Coding Level of Care Code 91575 SUB INP/OBS CARE 3/50MIN Diagnoses Back pain M54.9 Fever R50.9 Encephalopathy G93.40 Anemia requiring transfusions D64.9 Complicated urinary tract infection N39.0 Urothelial carcinoma of bladder C67.9 Right leg DVT I82.401 Hypertension I10 Acute hyponatremia E87.1 RUMA (acute kidney injury) N17.9
[2022-07-16] MEDS ORDERED: METOPROLOL TARTRATE 25 MG TAB PO SCH (09:00)
[2022-07-16] MEDS: ENOXAPARIN 100 MG/1ML SYR SQ SCH ×2 (09:35→20:54)
[2022-07-16] MEDS: GABAPENTIN 300 MG CAP PO SCH ×3 (09:36→20:54)
[2022-07-16] MEDS: MAGNESIUM OXIDE 400 MG TAB PO SCH ×2 (09:36→20:55)
[2022-07-16] MEDS: POLYETHYLENE (MIRALAX) 17 GM PACK PO SCH ×3 (09:38→20:57)
[2022-07-16] MEDS: SENNA 8.6 MG TAB PO SCH (09:38)
[2022-07-16] MEDS: PANTOprazole 40 MG TAB PO SCH (09:38)
[2022-07-16] MEDS: DICLOFENAC SOD 1% GEL 100 GM TUBE EXT PRN ×3 (09:40→20:54)
[2022-07-16] MEDS: CYCLOBENZAPRINE HCL 10 MG TAB PO PRN ×2 (09:45→17:35)
[2022-07-16] MEDS: HYDROmorphone HCL 2 MG TAB PO PRN ×3 (10:14→17:35)
[2022-07-16] MEDS ORDERED: FUROSEMIDE 40 MG/4 ML VIAL IV ONE (13:33)
[2022-07-16 15:29] LABS: Adenovirus PCR Not Detected (NotDetected); Bordetella parapertussis PCR Not Detected (NotDetected); Bordetella pertussis PCR Not Detected (NotDetected); Chlamydia pneumoniae PCR Not Detected (NotDetected); Coronavirus 229E PCR Not Detected (NotDetected); Coronavirus CoV-2 (COVID19)PCR Not Detected (NotDetected); Coronavirus HKU1 PCR Not Detected (NotDetected); Coronavirus NL63 PCR Not Detected (NotDetected); Coronavirus OC43PCR Not Detected (NotDetected); Human Metapneumovirus PCR Not Detected (NotDetected); Influenza A PCR Not Detected (NotDetected); Influenza B PCR Not Detected (NotDetected); Mycoplasma pneumoniae PCR Not Detected (NotDetected); Parainfluenza Virus 1 PCR Not Detected (NotDetected); Parainfluenza Virus 2 PCR Not Detected (NotDetected); Parainfluenza Virus 3 PCR Not Detected (NotDetected); Parainfluenza Virus 4 PCR Not Detected (NotDetected); Respiratory Syncytial VirusPCR Not Detected (NotDetected); Rhinovirus/Enterovirus PCR Not Detected (NotDetected)
--- NOTE | 2022-07-16 15:30 | Communication Note ---
Date of Service: July 16, 2022 Brief burst SVT 7beats, asymptomatic this afternoon. suspected from large doses of steroids, will decrease to 30mg TID and increase his metoprolol to 25mg BID for now and monitor that BPs improved and stable check echo continue to monitor on telemetry ekg w/ cp or symptoms
[2022-07-16] MEDS: WARFARIN SOD 5 MG TAB PO SCH (15:36)
[2022-07-16] MEDS ORDERED: MAGNESIUM SULFATE / D5W 1 GM/100 ML BAG IV ONE (16:32)
[2022-07-16] MEDS: METOPROLOL TARTRATE 25 MG TAB PO SCH (20:56)
[2022-07-16] MEDS: methylPREDNISolone 30 MG in SYRINGE 0 ML IV SCH (21:03)
[2022-07-17] MEDS: methylPREDNISolone 30 MG in SYRINGE 0 ML IV SCH ×4 (03:09→21:14)
[2022-07-17] MEDS: HYDROmorphone HCL 2 MG TAB PO PRN ×5 (03:09→21:22)
[2022-07-17 07:37] LABS: Basophils # (auto) 0.03 K/uL (0-0.2); Basophils % (auto) 0.1 %; Hematocrit (blood only) 23.7 % (42.0-52.0); Hemoglobin 7.6 g/dl (14.0-18.0); Immature Granulocytes # (auto) 0.28 K/uL (0.01-0.20); Immature Granulocytes % (auto) 1.3 %; Lymphocytes # (auto) 0.98 K/uL (1.2-3.4); Lymphocytes % (auto) 4.4 %; Mean Corpuscular Hgb Conc 32.1 g/dL (32.0-36.0); Mean Platelet Volume 10.9 fL (9.4-12.4); Monocytes # (auto) 1.03 K/uL (0.11-0.59); Monocytes % (auto) 4.6 %; Neutrophils % (auto) 89.6 %; Platelet Count 254 K/uL (130-400); RDW Standard Deviation 52.3 fL (36.4-46.3); Red Blood Count 2.82 M/uL (4.70-6.10); White Blood Count 22.22 K/ul (4.8-10.8)
[2022-07-17 07:56] LABS: INR 2.1 (0.9-1.1); Prothrombin Time 21.6 Seconds (9.0-12.0)
[2022-07-17] MEDS: ENOXAPARIN 100 MG/1ML SYR SQ SCH ×2 (07:59→21:14)
[2022-07-17] MEDS: CHECK fentaNYL PATCH PLACEMENT SCH ×2 (07:59→15:31)
[2022-07-17] MEDS: MAGNESIUM OXIDE 400 MG TAB PO SCH ×2 (08:00→21:15)
[2022-07-17] MEDS: GABAPENTIN 300 MG CAP PO SCH ×3 (08:00→21:13)
[2022-07-17] MEDS: METOPROLOL TARTRATE 25 MG TAB PO SCH ×2 (08:02→21:13)
[2022-07-17] MEDS: POLYETHYLENE (MIRALAX) 17 GM PACK PO SCH ×3 (08:02→21:14)
[2022-07-17] MEDS: PANTOprazole 40 MG TAB PO SCH (08:02)
[2022-07-17] MEDS: DICLOFENAC SOD 1% GEL 100 GM TUBE EXT PRN (08:03)
[2022-07-17] MEDS: SENNA 8.6 MG TAB PO SCH (08:03)
[2022-07-17] MEDS: CYCLOBENZAPRINE HCL 10 MG TAB PO PRN ×2 (08:06→17:19)
[2022-07-17 08:13] LABS: Albumin Level 2.6 gm/dl (3.4-5.0); Bilirubin,Total 0.2 mg/dl (0.2-1.0); Calcium 9.7 mg/dl (8.6-10.3); Magnesium 2.1 mg/dl (1.7-2.4); Potassium 4.6 mmol/L (3.5-5.1)
[2022-07-17 08:19] LABS: BUN Creatinine Ratio 35.9 (10-20); Creatinine Clr Calc Pharmacy 74.7 ml/min; Est GFR (African American) 73.8 ml/min; Est GFR (Non-African American) 63.7 ml/min; Total Protein 6.5 gm/dl (6.0-8.3)
[2022-07-17 08:24] LABS: RBC Morphology Unremarkable
--- NOTE | 2022-07-17 09:38 | Palliative Care Progress Note ---
Date of Service July 17, 2022 Assessment & Plan (1) Palliative care by specialist: (2) Advanced care planning/counseling discussion: Plan: pt has completed an AD and appointed his dtrs POA. He elects No Code, DNR/DNI and does not want to prolong dying. he is open to transfusions and Abtx for treating infection, etc as a trial of therapy but if worsening wants comfort. He and dtrs have discussed timing for hospice but he has deferred that to his dtr who is a home performance consultant. Pt is very independent and wants to remain in his home as long as possible. Code changes to DNR/DNI in alignment with his wishes and known preferences. (3) Cancer related pain: Plan: Using Dilaudid 7.5mg IV in 24hr for BTP This is approx 38mg IV MS equivalent Will increase TDF from 50mcg to 75mcg Begin transition to oral meds for BTP to facilitate dc home: Dilaudid 4mg tab one po q4h prn BTP/hold for somnolence or resp rate < 14/min Reduce frequency of Dilaudid 1mg IV to q3h prn very severe BTP unrelieved by oral med/same hold parameters If this patch dose increase does not provide improved pain, he may need an opioid rotation (4) Urothelial carcinoma of bladder: (5) Complicated urinary tract infection: (6) KEV (acute kidney injury): (7) Acute pyelonephritis: Plan Will increase TDG to 75mcg q3days Move to Dilaudid 4mg PO q4h prn BTP and use IV for very severe pain unrelieved by oral meds, that frequency has been reduced to q3h prn from q1h prn Stop DIlaudid 0.5mg dose Orders written Patient refuses VNS support stating he does not want anyone in his home, it is private; I tried to explain we are worried about his pain not being well controlled and the issues from prior admission - a VNS would help assure his meds are being monitored and if he needs dose adjustment they can quickly facilitate that without pt reaching another crisis of pain. Pt adamantly declines. States his daughter lives nearby and can take care of his needs. For dc planning: Please send the following orders to [facility] for pt tomorrow:Dilaudid 4mg tabs #90 and Fentanyl patch 75mcg #5. He has been given [employer] gift cards $275 by marine diver to help offset costs. I provided him with both coupons from [facility] for the fentanyl patch and dilaudid but [facility] not a pharmacy that came up on the lists so it is possible they do not pa rticipate. Dtr states they will pay OOP for any balance due on his meds. End of visit was joined by Dr Iniguez and Shabbir Angel cancer navigator. All updated on plan of care and in agreement. I also updated nursing. I will follow pt in Supportive Oncology Clinic at [facility], this clinic is on only. Patient has a telemed with his [facility] oncology provider on Sunday. Thank you for allowing us to participate in the ongoing care of this patient. Please don't hesitate to call or page with any additional concerns. Dr. Thalia Guevara DNP Director, Palliative Care Admission and Anticipated Discharge Date Admission Date: July 11, 2022 Subjective Pain is better. BLE edema persists. NO pain no SOB No Chest pain He has used Dilaudid 7.5mg IV in past 24 hrs, this is approx 37.5mg IV MS equiv or 113 OMEs Pain remains suboptimally controlled. Patient is "watching the clock" less and notes the Dilaudid 1mg lasts longer than 0.5mg dose. Remains IADLs and moving through the room, walking in hallways. Appetite excellent - states he's been eating very well since admission, food is "amazing and much better than anything I can do at home which is mostly frozen meals or fast food." no n/v/d/c BMs nearly everyday Since last visit, we have clarified pt does not have RX coverage - care mgt discovered that when he was electing his medicare plan, he specifically declined prescription coverage. He has been using [facility]. The good news is that he is eligible for [employer] and the application was provided to him and his daughter on Sunday - they will need to complete and submit. Cancer care navigators also made aware - pt will need close follow up with their team and ongoing psychosocial support and resource implementation. Still having BLE edema to ankles. Had good response to IV LAsix x 1 dose yesterday Review of Systems Review of Systems: All systems reviewed & are unremarkable except as noted in Subjective Physical Exam Constitutional: WD/WN, vitals as above Eyes: PERRL, conjunctivae normal, anicteric sclerae ENMT: external ear and nose normal, oropharynx normal (poor dentition) Neck: trachea midline, no thyromegaly Respiratory: normal effort Musculoskeletal: TTP bilat lower lumbar spine LEFT > Right with palpable parapsinal spasms, radiating to anterior left groin with deep pressure; +anterior left inguinal tenderness with radiation down into thigh/interior thigh. DECREASED strength LLE > RLE, unable to life LLE under resistance. Steward Dishwasher bilat equal. BLE +2 edema pitting to ankles Skin: no rashes, warm and dry Neurologic: PERRL, EOMI, accommodation nl, no face palsy, no dysarthria Psychiatric: A+Ox3, euthymic affect Results & Data Vital Signs (Past 12 Hours) Vital Signs Temp Pulse Pulse Resp BP Pulse Ox O2 Del Method 07/17/22 08:08 36.4 C L 91 H 18 131/83 96 Room Air 07/17/22 07:44 Room Air 07/17/22 05:58 75 07/17/22 03:08 36.5 C 91 H 18 146/83 H 96 Room Air 07/16/22 23:47 89 07/16/22 23:17 36.6 C 93 H 18 132/82 95 Room Air Laboratory Results data reviewed Diagnostic Findings data reviewd PG Care Time/CCT Total # of Minutes Spent Total Time Spent: 60 Total Time Spent with Patient: Total time spent is greater than 50% in coordination of care (as documented) at patient's floor/unit and/or counseling patient: [place] [address] SUB INP/OBS CARE 3/50MIN Patient Type Established Medical Decision Making High Complexity Diagnoses Palliative care by specialist Z51.5 Advanced care planning/counseling discussion Z71.89 Cancer related pain G89.3 Urothelial carcinoma of bladder C67.9 Complicated urinary tract infection N39.0 KEV (acute kidney injury) N17.9 Acute pyelonephritis N10
--- NOTE | 2022-07-17 10:07 | XCELERA ---
[id number]
[2022-07-17] MEDS: HYDROmorphone INJ 1 MG/ML SYRINGE IV PRN ×2 (11:43→15:33)
[2022-07-17] MEDS ORDERED: fentaNYL 75 MCG/HR TDSY TD SCH (13:00)
[2022-07-17] MEDS: WARFARIN SOD 5 MG TAB PO SCH (15:31)
[2022-07-17] MEDS ORDERED: FUROSEMIDE 40 MG TAB PO ONE (17:30)
--- NOTE | 2022-07-17 17:33 | Hospitalist Progress Note ---
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 Unclear etiology. procal trended down on repeat repeat urine/blood cultures negative had been on continuous meropenem since admission, prior cipro outpatient for enterobacter cloacae but no blood cultures between CXR w/ atelectasis, continue incentive spirometer Procal down to 0.73 (1.5 on admit, 0.84 on repeat) No more fever spikes (3) Encephalopathy: Plan: Resolved, alert/oriented x3 at present Repeat cultures remain NGTD, procal decreased, VBG w/o sign CO2 retention ?if from fentanyl w/ heating pad/multiple IV/PO doses and improved since changes made CXR w/ atelectasis, KUB w/o obstruction STABLE ON EXAM AT PRESENT (4) Anemia requiring transfusions: Plan: hgb 6.7 on admit, INR 4.5 s/p 2u PRBC and 8.3 on repeat Coumadin has been resumed Fecal occult NEGATIVE Lovenox SQ to bridge given subtherapeutic INR. Today INR 2.1. Will continue Lovenox bridge for another day. No hypoxia at present, but slightly volume overloaded and will give lasix p.o. x 1 dose and monitor response Hgb 7.5 and will monitor response to diuretics May req repeat PRBC CBC/INR in AM (5) Complicated urinary tract infection: Plan: Patient with recent UTI -culture from 07/04/22 POSITIVE for Enterobacter cloacae. Prior urine culture from 06/22/22 POSITIVE for Enterobacter faecalis. Patient has been on Ciprofloxacin with last dose 07/12/22. CT of the abdomen with [id number] left hydroureteronephrosis with urothelial thickening and enhancement in the left ureter as well as heterogenous enhancement of the left kidney with mild surrounding infiltration. UA on admit did not strongly support infection at time of presentation, HOWEVER had been on Cipro by Dr Coon and could have been falsely negative Repeat culture without growth Urology on consult, signed off Procal almost normal Discontinued abx at present -- monitor for any fevers (6) Urothelial carcinoma of bladder: Plan: Patient with urothelial carcinoma of the bladder s/p cystectomy with ureterostomy tube in place. He follows predominantly with Oncology at [facility]. Patient had a CT of the abdomen/pelvis with IV contrast performed which revealed a soft tissue implant identified in the cystectomy bed as well as enlarging retroperitoneal and iliac chain LAD as compared to image from 06/21/22. Findings are most concerning for progression of metastatic disease. CT findings briefly discussed with patient including the possibility that it may indicate a recurrence of his malignancy. Patient also with 3+ blood noted on UA on admit (none on repeat UA) Urology/heme/onc on consult as above -- appreciate recs Bone scan negative 07/13 Heme/onc planning outpt PET scan. Also pushed imaging [place] [facility] [place]see if able to be seen sooner - no note yet (7) Right leg DVT: Plan: Patient with RLE DVT diagnosed 03/2022 at [facility] He was previously being treated with Eliquis which was discontinued secondary to cost. He was most recently started on Coumadin - thought to be at continued risk for VTE given h/o malignancy and decreased mobility due to ongoing back pain. INR supratherapeutic at 4.6. Patient denies obvious source of blood loss - melena/hematochezia or hematuria. He does have 3+ blood in UA. Fecal occult NEGATIVE Has been on Cipro - possibly contributing to supratherapeutic INR on presentation Held Coumadin for now as INR still elevated to 3.5 on 07/13 but down to 2.0 on AM labs and resumed coumadin but INR 1.4 and lovenox ordered to bridge (fecal occult was negative) 1mg/kg BID and will monitor INR in AM See above, did not get dose last evening -- monitor for hypoxia/CT chest if needed Would rec getting at least HH at d/c to check outpt INR to ensure stable once resumed to prevent highs (8) Hypertension: Plan: Patient with lower blood pressures in the ER , stable and improved at present since initiation of metoprolol 12.5mg BID for continued sinus tachycardia during admission lisinorpil on hold for Ruma but Cr back to baseline but will hold for today given lasix OF NOTE, recs last admit to dc lisinopril -- consider if BPs remaining stable off such (9) Acute hyponatremia: Plan: Stable currently at 134 -- improving w/ improved pain control/sterioids. cortisol AM not significantly low , etoh use in remote past Monitor (10) RUMA (acute kidney injury): Plan: Resolved w/ IVF Renal dose meds/avoid nephrotoxins as able monitor bmp Plan continued inpatient stay ABx dc, monitor for further fevers/consider reaching out to ID If repeat fevers, low threshold to repeat CTAP but per supervising provider to hold off at this time and d/c ABx/continue steroids and monitor for now monitor labs on repeat Admission and Anticipated Discharge Date Admission Date: July 11, 2022 Subjective Patient is complaining of bilateral lower extremity swelling. Pain is better co ntrolled. Review of Systems Review of Systems: All systems reviewed & are unremarkable except as noted in Subjective Physical Exam Physical Exam: General: Awake, conversant Heart: S1, S2/regular rate and rhythm, no murmur rubs or gallops Lungs: Clear to auscultation bilaterally. Normal effort Abdomen: Soft/nontender/nondistended. No hepatosplenomegaly Extremities: No clubbing/cyanosis. 1+ bilateral lower extremity edema Behavior: Appropriate, cooperative Results & Data Results & Data Vital Signs (Past 12 Hours) Vital Signs Temp Pulse Pulse Resp BP BP Pulse Ox 07/17/22 14:02 95 H 07/17/22 15:08 36.7 C 99 H 20 150/79 H 96 07/17/22 08:08 36.4 C L 91 H 18 131/83 96 07/17/22 07:44 07/17/22 05:58 75 O2 Del Method 07/17/22 14:02 07/17/22 15:08 Room Air 07/17/22 08:08 Room Air 07/17/22 07:44 Room Air 07/17/22 05:58 Laboratory Results Abnormal lab results 07/17/22 07/17/22 07/17/22 Range/Units 07:11 07:11 07:11 WBC 22.22 H (4.8-10.8) K/ul RBC 2.82 L (4.70-6.10) M/uL Hgb 7.6 L (14.0-18.0) g/dl Hct 23.7 L (42.0-52.0) % RDW Std Deviation 52.3 H (36.4-46.3) fL RDW Coeff of Reina 17.0 H (11.5-14.5) % Neut # (Auto) 19.90 H (1.40-6.50) K/uL Lymph # (Auto) 0.98 L (1.2-3.4) K/uL [place] # (Auto) 1.03 H (0.11-0.59) K/uL Immature Gran # (Auto) 0.28 H (0.01-0.20) K/uL PT 21.6 H (9.0-12.0) Seconds INR 2.1 H (0.9-1.1) Sodium 135 L (136-145) mmol/L BUN 42 H (6-23) mg/dl BUN/Creatinine Ratio 35.9 H (10-20) Glucose 164 H (70-99(Fasting)) mg/dl AST 83 H (13-39) U/L ALT 66 H (7-52) U/L Alkaline Phosphatase 114 H (34-104) U/L Albumin 2.6 L (3.4-5.0) gm/dl PG Care Time/CCT Total # of Minutes Spent Total Time Spent with Patient: Total time spent is greater than 50% in coordination of care (as documented) at patient's floor/unit and/or counseling patient: Coding Level of Care Code 80236 SUB INP/OBS CARE 2/35MIN Diagnoses Back pain M54.9 Fever R50.9 Encephalopathy G93.40 Anemia requiring transfusions D64.9 Complicated urinary tract infection N39.0 Urothelial carcinoma of bladder C67.9 Right leg DVT I82.401 Hypertension I10 Acute hyponatremia E87.1 RUMA (acute kidney injury) N17.9
--- NOTE | 2022-07-17 17:57 | Hematology/Oncology Prog Note ---
Date of Service July 17, 2022 Assessment & Plan (1) Urothelial carcinoma of bladder: (2) Back pain: Plan Pain seems better controlled. Plan to obtain outpatient PET/CT to evaluate for recurrence as noted on CT imaging. Although bone scan did not show any evidence to suggest bone metastasis, consider obtaining lumbar/pelvic MRI if pain persists/worsens Admission and Anticipated Discharge Date Admission Date: July 11, 2022 Subjective He states that pain is a lot better on current pain medication regimen as recommended by palliative care. He is scheduled for a follow-up appointment with urology at [facility] [place] this week Results & Data Vital Signs (Past 12 Hours) Vital Signs Temp Pulse Pulse Resp BP BP Pulse Ox 07/17/22 14:02 95 H 07/17/22 15:08 36.7 C 99 H 20 150/79 H 96 07/17/22 08:08 36.4 C L 91 H 18 131/83 96 07/17/22 07:44 07/17/22 05:58 75 O2 Del Method 07/17/22 14:02 07/17/22 15:08 Room Air 07/17/22 08:08 Room Air 07/17/22 07:44 Room Air 07/17/22 05:58
[2022-07-18] MEDS: CHECK fentaNYL PATCH PLACEMENT SCH ×4 (00:11→16:16)
[2022-07-18] MEDS: methylPREDNISolone 30 MG in SYRINGE 0 ML IV SCH ×2 (03:26→08:33)
[2022-07-18] MEDS: HYDROmorphone HCL 2 MG TAB PO PRN ×4 (04:40→20:22)
[2022-07-18 06:50] LABS: Hematocrit (blood only) 23.4 % (42.0-52.0); Hemoglobin 7.4 g/dl (14.0-18.0); Mean Corpuscular Hemoglobin 26.1 pg (25.0-34.0); Mean Corpuscular Hgb Conc 31.6 g/dL (32.0-36.0); Mean Corpuscular Volume 82.7 fL (80.0-100.0); Mean Platelet Volume 10.8 fL (9.4-12.4); Platelet Count 257 K/uL (130-400); RDW Coefficient of Variation 16.9 % (11.5-14.5); Red Blood Count 2.83 M/uL (4.70-6.10); White Blood Count 19.62 K/ul (4.8-10.8)
[2022-07-18 07:22] LABS: BUN Creatinine Ratio 43.3 (10-20); Calcium 9.5 mg/dl (8.6-10.3); Creatinine Clr Calc Pharmacy 90.1 ml/min; Est GFR (African American) 92.6 ml/min; Est GFR (Non-African American) 79.9 ml/min; Potassium 4.7 mmol/L (3.5-5.1)
[2022-07-18] MEDS: ENOXAPARIN 100 MG/1ML SYR SQ SCH (08:30)
[2022-07-18] MEDS: GABAPENTIN 300 MG CAP PO SCH ×3 (08:30→20:17)
[2022-07-18] MEDS: MAGNESIUM OXIDE 400 MG TAB PO SCH ×2 (08:32→20:17)
[2022-07-18] MEDS: METOPROLOL TARTRATE 25 MG TAB PO SCH ×2 (08:32→20:17)
[2022-07-18] MEDS: SENNA 8.6 MG TAB PO SCH (08:32)
[2022-07-18] MEDS: PANTOprazole 40 MG TAB PO SCH (08:32)
[2022-07-18] MEDS: POLYETHYLENE (MIRALAX) 17 GM PACK PO SCH ×3 (08:33→20:17)
[2022-07-18 09:59] LABS: INR 3.4 (0.9-1.1); Prothrombin Time 34.2 Seconds (9.0-12.0)
[2022-07-18] MEDS: HYDROmorphone INJ 1 MG/ML SYRINGE IV PRN ×2 (11:23→17:26)
--- NOTE | 2022-07-18 11:43 | Palliative Care Progress Note ---
Date of Service July 18, 2022 Assessment & Plan (1) Palliative care by specialist: (2) Advanced care planning/counseling discussion: (3) Cancer related pain: Plan: See opioid calc above in HPI Will inc TDF to 100mcg given continued persistent pain and likely dc within next 1-2 days. (4) Urothelial carcinoma of bladder: (5) Complicated urinary tract infection: (6) KEV (acute kidney injury): (7) Acute pyelonephritis: Plan Dtr will pickup TDF 100mcg #5 patches and Dilaudid 4mg tabs #90 from [facility] location once primary team sends the order it. Cancer clinic has given dtr $250 approx in [employer] gift card to support OOP costs for medication, pt is pending [employer] application. He currently does not have RX coverage. New order written to increase TDF to 100mcg and discussed with nursing I have updated primary team Thank you for allowing us to participate in the ongoing care of this patient. Please don't hesitate to call or page with any additional concerns. Dr. Thalia Guevara DNP Director, Palliative Care Admission and Anticipated Discharge Date Admission Date: July 11, 2022 Subjective For pain control he has used the following:TDF dose increased to 75mcg yesterday/new patch ap[plied Dilaudid 4mg PO x 5 doses = 20mg Dlaudid PO = 100mg OME Dilaudid 1mg IV x 2 doses = 2mg IV = 10mg IV MS equiv = 30mg OME Total OME pain control: 130 OME = 43mg IV MS approx Review of Systems Review of Systems: All systems reviewed & are unremarkable except as noted in Subjective Physical Exam Constitutional: WD/WN, vitals as above Eyes: PERRL, conjunctivae normal, anicteric sclerae ENMT: external ear and nose normal, oropharynx normal (poor dentition) Neck: trachea midline, no thyromegaly Respiratory: normal effort Musculoskeletal: TTP bilat lower lumbar spine LEFT > Right with palpable parapsinal spasms, radiating to anterior left groin with deep pressure; +anterior left inguinal tenderness with radiation down into thigh/interior thigh. DECREASED strength LLE > RLE, unable to life LLE under resistance. Credit Compliance Officer bilat equal. BLE +1-early 2 edema pitting to ankles Skin: no rashes, warm and dry Neurologic: PERRL, EOMI, accommodation nl, no face palsy, no dysarthria Psychiatric: A+Ox3, euthymic affect Results & Data Vital Signs (Past 12 Hours) Vital Signs Temp Pulse Pulse Resp BP BP Pulse Ox 07/18/22 08:13 83 07/18/22 07:59 36.5 C 96 H 16 129/74 97 07/18/22 04:20 36.3 C L 73 18 123/65 98 07/18/22 00:11 36.4 C L 79 18 136/86 95 O2 Del Method 07/18/22 08:13 07/18/22 07:59 Room Air 07/18/22 04:20 Room Air 07/18/22 00:11 Room Air Laboratory Results data reviewed Diagnostic Findings data reviewd PG Care Time/CCT Total # of Minutes Spent Total Time Spent: 55 Total Time Spent with Patient: Total time spent is greater than 50% in coordination of care (as documented) at patient's floor/unit and/or counseling patient: Coding [place] [address] SUB INP/OBS CARE 3/50MIN Patient Type Established History Comprehensive Exam Detailed Medical Decision Making Moderate Complexity Diagnoses Palliative care by specialist Z51.5 Advanced care planning/counseling discussion Z71.89 Cancer related pain G89.3 Urothelial carcinoma of bladder C67.9 Complicated urinary tract infection N39.0 KEV (acute kidney injury) N17.9 Acute pyelonephritis N10
[2022-07-18] MEDS ORDERED: fentaNYL 100 MCG/HR TDSY TD SCH (14:30)
[2022-07-18] MEDS: WARFARIN SOD 5 MG TAB PO SCH (16:16)
[2022-07-18] MEDS ORDERED: FUROSEMIDE 40 MG TAB PO ONE (16:56)
--- NOTE | 2022-07-18 16:58 | Hospitalist Progress Note ---
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 Unclear etiology. procal trended down on repeat repeat urine/blood cultures negative had been on continuous meropenem since admission, prior cipro outpatient for enterobacter cloacae but no blood cultures between CXR w/ atelectasis, continue incentive spirometer Procal down to 0.73 (1.5 on admit, 0.84 on repeat) No more fever spikes (3) Encephalopathy: Plan: Resolved, alert/oriented x3 at present Repeat cultures remain NGTD, procal decreased, VBG w/o sign CO2 retention ?if from fentanyl w/ heating pad/multiple IV/PO doses and improved since changes made CXR w/ atelectasis, KUB w/o obstruction STABLE ON EXAM AT PRESENT (4) Anemia requiring transfusions: Plan: hgb 6.7 on admit, INR 4.5 s/p 2u PRBC and 8.3 on repeat Coumadin has been resumed Fecal occult NEGATIVE Lovenox SQ to bridge given subtherapeutic INR. Today INR 2.1. Will continue Lovenox bridge for another day. No hypoxia at present, but slightly volume overloaded and will give lasix p.o. x 1 dose and monitor response Hgb 7.5 and will monitor response to diuretics May req repeat PRBC INR elevated at 3.4. Discontinue Lovenox. Continue Coumadin. No active bleeding (5) Complicated urinary tract infection: Plan: Patient with recent UTI -culture from 07/04/22 POSITIVE for Enterobacter cloacae. Prior urine culture from 06/22/22 POSITIVE for Enterobacter faecalis. Patient has been on Ciprofloxacin with last dose 07/12/22. CT of the abdomen with [id number] left hydroureteronephrosis with urothelial thickening and enhancement in the left ureter as well as heterogenous enhancement of the left kidney with mild surrounding infiltration. UA on admit did not strongly support infection at time of presentation, HOWEVER had been on Cipro by Dr Coon and could have been falsely negative Repeat culture without growth Urology on consult, signed off Procal almost normal Discontinued abx at present -- monitor for any fevers (6) Urothelial carcinoma of bladder: Plan: Patient with urothelial carcinoma of the bladder s/p cystectomy with ureterostomy tube in place. He follows predominantly with Oncology at [facility]. Patient had a CT of the abdomen/pelvis with IV contrast performed which revealed a soft tissue implant identified in the cystectomy bed as well as enlarging retroperitoneal and iliac chain LAD as compared to image from 06/21/22. Findings are most concerning for progression of metastatic disease. CT findings briefly discussed with patient including the possibility that it may indicate a recurrence of his malignancy. Patient also with 3+ blood noted on UA on admit (none on repeat UA) Urology/heme/onc on consult as above -- appreciate recs Bone scan negative 07/13 Heme/onc planning outpt PET scan. Also pushed imaging [place] [facility] [place]see if able to be seen sooner - no note yet (7) Right leg DVT: Plan: Patient with RLE DVT diagnosed 03/2022 [place] [facility] He was previously being treated with Eliquis which was discontinued secondary to cost. He was most recently started on Coumadin - thought to be at continued risk for VTE given h/o malignancy and decreased mobility due to ongoing back pain. INR supratherapeutic at 4.6. Patient denies obvious source of blood loss - melena/hematochezia or hematuria. He does have 3+ blood in UA. Fecal occult NEGATIVE Has been on Cipro - possibly contributing to supratherapeutic INR on present ation INR 3.4 today. Discontinue Lovenox. Continue Coumadin. Monitor INR daily (8) Hypertension: Plan: Patient with lower blood pressures in the ER , stable and improved at present since initiation of metoprolol 12.5mg BID for continued sinus tachycardia during admission lisinorpil on hold for Ruma but Cr back to baseline but will hold for today given lasix OF NOTE, recs last admit to dc lisinopril -- consider if BPs remaining stable off such (9) Acute hyponatremia: Plan: Stable , etoh use in remote past Monitor (10) RUMA (acute kidney injury): Plan: Resolved w/ IVF Renal dose meds/avoid nephrotoxins as able monitor bmp Ordered another dose of Lasix due to leg swelling. Plan continued inpatient stay ABx dc, monitor for further fevers/consider reaching out to ID monitor labs on repeat Admission and Anticipated Discharge Date Admission Date: July 11, 2022 Subjective Patient's pain has been better controlled Review of Systems Review of Systems: All systems reviewed & are unremarkable except as noted in Subjective Physical Exam Physical Exam: General: Awake, conversant Heart: S1, S2/regular rate and rhythm, no murmur rubs or gallops Lungs: Clear to auscultation bilaterally. Normal effort Abdomen: Soft/nontender/nondistended. No hepatosplenomegaly Extremities: No clubbing/cyanosis. 1+ bilateral lower extremity edema Behavior: Appropriate, cooperative Results & Data Results & Data Vital Signs (Past 12 Hours) Vital Signs Temp Pulse Pulse Resp BP Pulse Ox O2 Del Method 07/18/22 15:22 36.5 C 81 16 152/87 H 96 Room Air 07/18/22 12:02 36.6 C 77 16 151/86 H 96 Room Air 07/18/22 08:13 83 07/18/22 07:59 36.5 C 96 H 16 129/74 97 Room Air Laboratory Results Abnormal lab results 07/18/22 07/18/22 07/18/22 Range/Units 06:12 06:12 09:43 WBC 19.62 H (4.8-10.8) K/ul RBC 2.83 L (4.70-6.10) M/uL Hgb 7.4 L (14.0-18.0) g/dl Hct 23.4 L (42.0-52.0) % MCHC 31.6 L (32.0-36.0) g/dL RDW Std Deviation 51.0 H (36.4-46.3) fL RDW Coeff of Reina 16.9 H (11.5-14.5) % PT 34.2 H (9.0-12.0) Seconds INR 3.4 H (0.9-1.1) BUN 42 H (6-23) mg/dl BUN/Creatinine Ratio 43.3 H (10-20) Glucose 180 H (70-99(Fasting)) mg/dl PG Care Time/CCT Total # of Minutes Spent Total Time Spent with Patient: Total time spent is greater than 50% in coordination of care (as documented) at patient's floor/unit and/or counseling patient: Coding Level of Care Code 77195 SUB INP/OBS CARE 2/35MIN Diagnoses Back pain M54.9 Fever R50.9 Encephalopathy G93.40 Anemia requiring transfusions D64.9 Complicated urinary tract infection N39.0 Urothelial carcinoma of bladder C67.9 Right leg DVT I82.401 Hypertension I10 Acute hyponatremia E87.1 RUMA (acute kidney injury) N17.9
[2022-07-19] MEDS: CHECK fentaNYL PATCH PLACEMENT SCH ×6 (00:31→16:44)
[2022-07-19] MEDS: HYDROmorphone INJ 1 MG/ML SYRINGE IV PRN ×2 (00:32→09:16)
[2022-07-19 07:08] LABS: Hematocrit (blood only) 29.2 % (42.0-52.0); Hemoglobin 9.2 g/dl (14.0-18.0); Mean Corpuscular Hemoglobin 26.4 pg (25.0-34.0); Mean Corpuscular Hgb Conc 31.5 g/dL (32.0-36.0); Mean Corpuscular Volume 83.9 fL (80.0-100.0); Mean Platelet Volume 10.4 fL (9.4-12.4); Nucleated RBC # (auto) 0.03 K/uL (0-0.12); Nucleated RBC % (auto) 0.1 %; Platelet Count 319 K/uL (130-400); RDW Coefficient of Variation 16.9 % (11.5-14.5); RDW Standard Deviation 51.6 fL (36.4-46.3); Red Blood Count 3.48 M/uL (4.70-6.10); White Blood Count 23.22 K/ul (4.8-10.8)
[2022-07-19 07:30] LABS: BUN Creatinine Ratio 36.6 (10-20); Calcium 10.1 mg/dl (8.6-10.3); Creatinine Clr Calc Pharmacy 86.6 ml/min; Est GFR (African American) 88.2 ml/min; Est GFR (Non-African American) 76.1 ml/min; Potassium 4.3 mmol/L (3.5-5.1)
[2022-07-19 07:42] LABS: INR 3.3 (0.9-1.1); Prothrombin Time 33.5 Seconds (9.0-12.0)
[2022-07-19] MEDS ORDERED: methylPREDNISolone 30 MG in SYRINGE 0 ML IV SCH (09:00)
[2022-07-19] MEDS: PANTOprazole 40 MG TAB PO SCH (09:13)
[2022-07-19] MEDS: GABAPENTIN 300 MG CAP PO SCH ×3 (09:13→20:52)
[2022-07-19] MEDS: MAGNESIUM OXIDE 400 MG TAB PO SCH ×2 (09:13→20:52)
[2022-07-19] MEDS: METOPROLOL TARTRATE 25 MG TAB PO SCH ×2 (09:13→20:52)
[2022-07-19] MEDS: SENNA 8.6 MG TAB PO SCH (09:20)
[2022-07-19] MEDS: POLYETHYLENE (MIRALAX) 17 GM PACK PO SCH ×3 (09:20→20:51)
[2022-07-19] MEDS ORDERED: HYDROmorphone INJ 1 MG/ML SYRINGE IV PRN (09:43)
[2022-07-19] MEDS: HYDROmorphone HCL 2 MG TAB PO PRN ×2 (10:51→14:52)
[2022-07-19] MEDS: WARFARIN SOD 5 MG TAB PO SCH (16:45)
--- NOTE | 2022-07-19 17:03 | Hospitalist Progress Note ---
Date of Service July 19, 2022 Assessment & Plan (1) Back pain: Plan: Does have some aspect of lumbar radiculopathy, likely at level L3 but also concerns for malignancy Ongoing issues w/ pain control but appears more comfortable on exam Discontinue IV Solu-Medrol Palliative consulted -- fentanyl increased to 100 mcg daily, PO dilaudid available as needed, IV for breakthrough Palliative care informed about ongoing pain Ordered MRI lumbar spine and pelvis due to ongoing pain Unable to use NSAIDs, flexeril available for spasm type pain KUB w/o obstruction and moving bowels PT/OT consulted (2) Fever: Plan: Fevers through evening 07/14, ?infection vs malignancy vs other. Unclear etiology. procal trended down on repeat repeat urine/blood cultures negative had been on continuous meropenem since admission, prior cipro outpatient for enterobacter cloacae but no blood cultures between CXR w/ atelectasis, continue incentive spirometer Procal down to 0.73 (1.5 on admit, 0.84 on repeat) No more fever spikes (3) Encephalopathy: Plan: Resolved, alert/oriented x3 at present Repeat cultures remain NGTD, procal decreased, VBG w/o sign CO2 retention ?if from fentanyl w/ heating pad/multiple IV/PO doses and improved since changes made CXR w/ atelectasis, KUB w/o obstruction STABLE ON EXAM AT PRESENT (4) Anemia requiring transfusions: Plan: hgb 6.7 on admit, INR 4.5 s/p 2u PRBC and 8.3 on repeat Coumadin has been resumed Fecal occult NEGATIVE Lovenox SQ to bridge given subtherapeutic INR. Today INR 2.1. Will continue Lovenox bridge for another day. No hypoxia at present, but slightly volume overloaded and will give lasix p.o. x 1 dose and monitor response Hgb 9.2 INR elevated at 3.3. Lovenox bridge discontinued on 07/18. Continue Coumadin. No active bleeding (5) Complicated urinary tract infection: Plan: Patient with recent UTI -culture from 07/04/22 POSITIVE for Enterobacter cloacae. Prior urine culture from 06/22/22 POSITIVE for Enterobacter faecalis. Patient has been on Ciprofloxacin with last dose 07/12/22. CT of the abdomen with [id number] left hydroureteronephrosis with urothelial thickening and enhancement in the left ureter as well as heterogenous enhancement of the left kidney with mild surrounding infiltration. UA on admit did not strongly support infection at time of presentation, HOWEVER had been on Cipro by Dr Coon and could have been falsely negative Repeat culture without growth Urology on consult, signed off Procal almost normal Discontinued abx at present -- monitor for any fevers (6) Urothelial carcinoma of bladder: Plan: Patient with urothelial carcinoma of the bladder s/p cystectomy with ureterostomy tube in place. He follows predominantly with Oncology at [facility]. Patient had a CT of the abdomen/pelvis with IV contrast performed which revealed a soft tissue implant identified in the cystectomy bed as well as enlarging retroperitoneal and iliac chain LAD as compared to image from 06/21/22. Findings are most concerning for progression of metastatic disease. CT findings briefly discussed with patient including the possibility that it may indicate a recurrence of his malignancy. Patient also with 3+ blood noted on UA on admit (none on repeat UA) Urology/heme/onc on consult as above -- appreciate recs Bone scan negative 07/13 Heme/onc planning outpt PET scan. Ordered MRI pelvis/lumbar spine due to ongoing pain Also pushed imaging to [facility] [place] [facility] for review/see if able to be seen sooner - no note yet (7) Right leg DVT: Plan: Patient with RLE DVT diagnosed 03/2022 at [facility] [place]. He was previously being treated with Eliquis which was discontinued secondary to cost. He was most recently started on Coumadin - thought to be at continued risk for VTE given h/o malignancy and decreased mobility due to ongoing back pain. INR supratherapeutic at 4.6. Patient denies obvious source of blood loss - melena/hematochezia or hematuria. He does have 3+ blood in UA. Fecal occult NEGATIVE Has been on Cipro - possibly contributing to supratherapeutic INR on presentation INR 3.3 today. Continue Coumadin. Monitor INR daily (8) Hypertension: Plan: Patient with lower blood pressures in the ER , stable and improved at present since initiation of metoprolol 12.5mg BID for continued sinus tachycardia during admission lisinorpil on hold for Ruma but Cr back to baseline but will hold for today given lasix OF NOTE, recs last admit to dc lisinopril -- consider if BPs remaining stable off such (9) Acute hyponatremia: Plan: Stable , etoh use in remote past Monitor (10) RUMA (acute kidney injury): Plan: Resolved w/ IVF Renal dose meds/avoid nephrotoxins as able monitor bmp Ordered another dose of Lasix due to leg swelling. Plan continued inpatient stay ABx dc, monitor for further fevers/consider reaching out to ID monitor labs on repeat Admission and Anticipated Discharge Date Admission Date: July 11, 2022 Subjective Patient complains of ongoing back pain. This morning his heart rate was up due to pain which came down after pain was treated. Because of up titration of pain medications, daughter who is a hospice nurse by profession, is not comfortable with the discharge plan tomorrow. Review of Systems Review of Systems: All systems reviewed & are unremarkable except as noted in Subjective Physical Exam Physical Exam: General: Awake, conversant Heart: S1, S2/regular rate and rhythm, no murmur rubs or gallops Lungs: Clear to auscultation bilaterally. Normal effort Abdomen: Soft/nontender/nondistended. No hepatosplenomegaly Extremities: No clubbing/cyanosis. 1+ bilateral lower extremity edema Behavior: Appropriate, cooperative Results & Data Results & Data Vital Signs (Past 12 Hours) Vital Signs Temp Pulse Pulse Resp BP Pulse Ox O2 Del Method 07/19/22 16:21 37.0 C 121 H 20 99/60 L 97 Room Air 07/19/22 16:06 109 H 07/19/22 12:22 36.8 C 108 H 16 102/66 96 Room Air 07/19/22 08:09 122 H 07/19/22 06:40 37.1 C 112 H 20 133/69 95 Room Air PG Care Time/CCT Total # of Minutes Spent Total Time Spent with Patient: Total time spent is greater than 50% in coordination of care (as documented) at patient's floor/unit and/or counseling patient: Coding Level of Care Code 70011 SUB INP/OBS CARE 2/35MIN Diagnoses Back pain M54.9 Fever R50.9 Encephalopathy G93.40 Anemia requiring transfusions D64.9 Complicated urinary tract infection N39.0 Urothelial carcinoma of bladder C67.9 Right leg DVT I82.401 Hypertension I10 Acute hyponatremia E87.1 RUMA (acute kidney injury) N17.9
--- NOTE | 2022-07-20 00:05 | Magnetic Resonance Report ---
Exam(s): MRI L SPINE Without Contrast EXAM: MR Lumbar Spine Without Intravenous Contrast CLINICAL HISTORY: Reason for exam: Urothelial carcinoma of the bladder, back pain. TECHNIQUE: Magnetic resonance images of the lumbar spine without intravenous contrast in multiple planes. COMPARISON: 06/21/2022 FINDINGS: Vertebrae: See below. Spinal cord: Unremarkable. Normal signal. Soft tissues: Unremarkable. DISCS/SPINAL CANAL/NEURAL FORAMINA: L1-L2: Subtle posterior disc osteophyte complex slightly asymmetric to the right resulting in mild right foraminal narrowing. L2-L3: Posterior disc osteophyte complex superimposed upon mild facet and ligamentous hypertrophic changes resulting in bilateral right greater than left neural foraminal stenosis at Stenosis due to a degenerative disc bulge and bony hypertrophy. L3-L4: L3-4: Posterior disc osteophyte complex superimposed upon mild facet and ligamentous hypertrophic changes and an underlying congenitally small canal results in moderate canal and bilateral neural foraminal stenosis at Stenosis due to a degenerative disc bulge and bony hypertrophy. L4-L5: Posterior disc osteophyte complex slightly asymmetric to the right resulting in right greater than the left neural foraminal stenosis at Stenosis due to a degenerative disc bulge and bony hypertrophy. L5-S1: Broad-based posterior disc bulge superimposed upon facet arthropathy resulting in moderate canal and bilateral neural foraminal stenosis at Stenosis due to a degenerative disc bulge and bony hypertrophy. Other findings: No significant interval change since prior exam. Diffuse loss of disc signal and height. IMPRESSION: Prior MRI of the lumbar spine negative for acute abnormality Electronically signed by: Mc Cole MD 07/20/22 00:04 AM
[2022-07-20] MEDS: CHECK fentaNYL PATCH PLACEMENT SCH ×5 (00:28→15:23)
--- NOTE | 2022-07-20 00:33 | Magnetic Resonance Report ---
Exam(s): MRI PELVIS Without Contrast EXAM: MR Pelvis Without Intravenous Contrast CLINICAL HISTORY: Reason for exam: Urothelial carcinoma of the bladder, back pain. TECHNIQUE: Multiplanar magnetic resonance images of the pelvis without intravenous contrast. COMPARISON: No relevant prior studies available. FINDINGS: Limitations: Exam limited secondary to motion artifact. Bowel: Wall thickening involving the short segment of rectum adjacent to the above-mentioned neoplasm. No obstruction. Bladder: Circumferential wall thickening of the urinary bladder likely representing patient's known neoplasm. No stones. Prostate: Unremarkable as visualized. No hypertrophy. No contour abnormality. Seminal vesicles: Unremarkable as visualized. No nodule or cyst. Bones/joints: Unremarkable. No acute fracture. No dislocation. Soft tissues: Unremarkable. Vasculature: Unremarkable. No lower abdominal aortic aneurysm. Lymph nodes: Left pelvic side wall lymphadenopathy measuring up to 2.3 cm in short axis diameter. IMPRESSION: No acute findings in the pelvis. Electronically signed by: Mc Cole MD 07/20/22 00:33 AM
[2022-07-20 07:36] LABS: Hematocrit (blood only) 27.3 % (42.0-52.0); Hemoglobin 8.6 g/dl (14.0-18.0); Mean Corpuscular Hemoglobin 26.5 pg (25.0-34.0); Mean Corpuscular Hgb Conc 31.5 g/dL (32.0-36.0); Mean Platelet Volume 10.3 fL (9.4-12.4); Nucleated RBC # (auto) 0.02 K/uL (0-0.12); Nucleated RBC % (auto) 0.1 %; Platelet Count 255 K/uL (130-400); RDW Standard Deviation 52.1 fL (36.4-46.3); Red Blood Count 3.25 M/uL (4.70-6.10); White Blood Count 19.61 K/ul (4.8-10.8)
[2022-07-20 07:48] LABS: Calcium 9.6 mg/dl (8.6-10.3); Creatinine Clr Calc Pharmacy 84.7 ml/min; Est GFR (African American) 86.1 ml/min; Est GFR (Non-African American) 74.3 ml/min; Potassium 4.2 mmol/L (3.5-5.1)
[2022-07-20] MEDS: GABAPENTIN 300 MG CAP PO SCH ×2 (09:07→15:23)
[2022-07-20] MEDS: PANTOprazole 40 MG TAB PO SCH (09:08)
[2022-07-20] MEDS: POLYETHYLENE (MIRALAX) 17 GM PACK PO SCH ×2 (09:08→13:08)
[2022-07-20] MEDS: METOPROLOL TARTRATE 25 MG TAB PO SCH (09:08)
[2022-07-20] MEDS: SENNA 8.6 MG TAB PO SCH (09:08)
[2022-07-20] MEDS: MAGNESIUM OXIDE 400 MG TAB PO SCH (09:08)
--- NOTE | 2022-07-20 13:16 | Communication Note ---
Date of Service: July 20, 2022 Daughter Destini/RN - hospice Cell is # [phone]
--- NOTE | 2022-07-20 13:29 | Palliative Family Discussion ---
Date of Service July 20, 2022 Patient Directed Conference Time of [id number] Participants: Thalia Guevara DNP Patient participation: yes Patient Support System: daughters Destini (hospice liaison) and Liana The patient's surrogate medical decision maker participated: pt wants dtrs to make all decisions. they have had several conversations about GOC and ACp prior to this admission, see my prior notes for details. A family meeting was held for ROSS MAX. This meeting was necessary for determining the appropriate course of treatment. Topics of Discussion Topics of Discussion: they have been having nightly family meetings and discussions with pt through this admission. He has been been more accepting of disease progression and less denial. last night he told them he did not want to languish in the hospital and knowing there is progression he recognizes time may be running out. He wants to be home, comfortable and with family. They spoke about hospice, as they have done prior to this admission, and he told them it was time to think about "making hospice the plan." is was on [facility] ad he wanted to yogesh same agency. he will, for now, return to his home but when he begins needing more help, he will move to his sister's [address] and remain on hospice. Daughter Destini has been in touch with [facility] director of assessment and reviewed this plan of care. [facility] accepts this plan and is willing to admit pt tomorrow. Patient plans on keeping his telemed with mervat doc tomorrow but understands overall prognosis is limited. They would like to go home today. They will black pickler his opioid RX from [facility]: Fentanyl 100mcg patch #5 and Dilaudid 4mg tabs take 1.5 tabs PO q4h prn [facility] cancer pain dispense #120. Hospice pharmacy will cover all meds once he is enrolled, likely they will see him tomorrow for their initial intake and admission. This supply will cover patient for 10 days. Family has the visa cards from cancer clinic which will help pay for his opioids. Other Content of Meetin. Opportunity given for participants to speak and ask questions. 2. Participants were assured of attention to patient comfort. 3. Reassurance provided. 4. Support was provided for informed, good-brando decisions. 5. Emotions expressed by family were acknowledged and addressed 6. Dying patients fear dyspnea and pain, therefore, symptom control is one c ornerstone of pulmonary palliative care. Dyspnea is a prominent symptom of the patient with advanced respiratory disease of any cause: nearly all patients with COPD had dyspnea during the last 3 days of their lives. Providers routinely care for patients with chronic or advanced respiratory diseases and critical illnesses. The ATS recognizes: the growing importance and complexity of palliative care for patients with life-threatening and life-limiting diseases and disorders and the need for improving professional competence and teamwork in providing such care. The statement strongly endorses the concept that palliative care should be available to patients at all stages of illness and should be individualized based on the needs and preferences of the patient and the patients family. Clinicians should consult with palliative care specialists as appropriate for managing palliative care situations beyond the clinicians level of competence. (ATS Clinical Policy Statement: Palliative Care for Patients with Respiratory Diseases and Critical Illnesses; Yolanda Almanzar et al., for the [employer], the [employer], the [employer], and the Respiratory Society* Diagnosis and Management of Stable Chronic Obstructive Pulmonary Disease: A Clinical Practice Guideline Update from the [employer], [employer], [employer], and Respiratory Society . [employer] S[employer] Med. 2011;[id number].) Time Involved in Meetinmin 15 min updating teams 5min chart review total time spent 50min
--- NOTE | 2022-07-20 13:52 | Discharge Summary ---
Date of Service July 20, 2022 Admission HPI Per Admitting Provider Salomón Lopez is a 67yo male with history of invasive, high-grade urothelial carcinoma diagnosed in October 2021. He had transurethral resection of a bladder tumor and neoadjuvant chemotherapy and cystectomy 04/05/2022 performed [place] [facility] with placement of ureterostomy as well as recent acute DVT presenting with several complaints. Patient reports severe incapacitating low back pain with spasm as well as abdominal discomfort and bladder spasms. He has had occasional subjective fevers and shaking chills. He denies urinary complaints - had mildly decreased and darker UOP noted in his ureterostomy bag over the last day. He has been trying to drink more water. He denies chest pain, palpitations. Has occasional SOB with his pain. No nausea, vomiting, diarrhea. He had some constipation recently. Denies melena, hematochezia, hematuria, bleeding or bruising. Patient was admitted to [facility] from 06/21/22 - 06/27/22 after presenting with abdominal pain, decreased PO intake. Patient was found to have a complicated UTI secondary to enterococcus. He was treated with Zosyn then Daptomycin and was ultimately discharged on Amoxicillin 500mg po TID to complete 10 days of therapy. Patient 's blood cultures remained NEGATIVE. He is currently on Ciprofloxacin 500mg po BID with last dose scheduled for tomorrow. He also had KEV with Cr of 2.28 on arrival (baseline of appx 1.2). Likely secondary to poor oral intake as well as NSAID use. His Cr normalized to 1.13 on day of discharge 06/27/22. Patient also with severe acute on chronic low back pain addressed during this admission - thought to be secondary to lumbar radiculopathy from left L3 nerve impingement. Patient was treated with Dexamethasone as well as Gabapentin, Baclofen, Oxycodone, Tylenol and Voltaren gel. He has been seen by Pain Management in the past and has had radiofrequency ablation performed in 2019. He saw pain management again on 07/07/22 and is to have an epidural steroid injection for acute back pain management - needs to be 2 weeks post completion for his UTI. Additionally patient with DVT diagnosed at [facility] 03/2022. He was previously on Eliquis x 4-6 weeks which was discontinued due to high [id number] cost. He was treated with a heparin infusion while admitted and discharged on Coumadin anticoagulation. He reports some difficulty with filling his prescriptions after discharge and has been unable to get the ER Oxycodone pills. He was previously on Oxycodone 10mg po q 4 hours PRN pain and was discharged on Oxycontin 10mg po BID + Oxycodone 5mg po q 6 hours PRN. Patient unhappy with this regimen and reports he has not been taking the ER oxycodone. In the ER patient afebrile, tachycardic, borderline low blood pressure. No respiratory distress ER Course: NSS x 2L Fentanyl 50mcg Meropenem 500mg IV Dilaudid 1mg + 2mg IV Admission Exam Per Admitting Provider General: patient in moderate amount of discomfort from ongoing back pain, NAD, AA&O x 4 Skin: warm, dry, intact, no rashes or lesions HEENT: NC/AT, PERRL, EOMI, anicteric sclera, conjunctiva without injection, external ear normal to inspection and nontender, nares patent, slightly dry mucus membranes, dentition intact, no oropharyngeal lesions, neck supple, trachea midline, no LAD, no thyromegaly, no JVD Heart: +S1/S2, regular, tachycardic, no m/r/g Lungs: equal air entry bilaterally, no rales/rhonchi/wheezes Abd: +BS, soft, tender without rebound/guarding/peritonitis, ureterostomy bag in place with appx 80mL clear/yellow urine, no masses/organomegaly/ascites Ext: warm, 2+ pulses in UE/LE bilaterally, no clubbing/cyanosis or edema Neuro: nonfocal, patient AA&O x 4, speech intact, no facial droop, moving all extremities on command with equal strength 5/5 Principal Diagnosis Back pain most likely secondary to lumbar radiculopathy versus cancer recurrence Fever of unknown etiology, could be related to cancer Anemia requiring blood transfusion Protein calorie malnutrition Discharge Exam General: Awake, conversant Heart: S1, S2/regular rate and rhythm, no murmur rubs or gallops Lungs: Clear to auscultation bilaterally. Normal effort Abdomen: Soft/nontender/nondistended. No hepatosplenomegaly Extremities: No clubbing/cyanosis. 1+ bilateral lower extremity edema Behavior: Appropriate, cooperative Discharge Data Allergies Allergy/AdvReac Type Severity Reaction Status Date / Time No Known Allergies Allergy Verified 07/07/22 08:20 Consultations 07/11/22 19:30 ED Decision to Admit Stat 07/11/22 22:20 Consult Oncology Routine 07/12/22 00:18 Consult Urology Routine 07/12/22 13:59 Consult Palliative Care Routine Ordered Studies 07/11/22 15:35 CT abd pelvis IV con only Stat 07/19/22 16:55 MRI Lumbar Spine [MR lumbar spine wo con] Routine MRI Pelvis [MR pelvis wo con] Routine Hospital Course (1) Back pain: Does have some aspect of lumbar radiculopathy, likely at level L3 but also concerns for malignancy Ongoing issues w/ pain control but appears more comfortable on exam Discontinued IV Solu-Medrol Palliative consulted -- fentanyl increased to 100 mcg daily, PO dilaudid available as needed Palliative care informed about ongoing pain Ordered MRI lumbar spine and pelvis due to ongoing pain which are negative Unable to use NSAIDs, flexeril available for spasm type pain KUB w/o obstruction and moving bowels Patient finally decided on home with hospice. Discharge today (2) Urothelial carcinoma of bladder: Patient with urothelial carcinoma of the bladder s/p cystectomy with ureterostomy tube in place. He follows predominantly with Oncology at [facility]. Patient had a CT of the abdomen/pelvis with IV contrast performed which revealed a soft tissue implant identified in the cystectomy bed as well as enlarging retroperitoneal and iliac chain LAD as compared to image from 06/21/22. Findings are most concerning for progression of metastatic disease. CT findings briefly discussed with patient including the possibility that it may indicate a recurrence of his malignancy. Patient also with 3+ blood noted on UA on admit (none on repeat UA) Urology/heme/onc on consult as above -- appreciate recs Bone scan negative 07/13 Heme/onc was planning outpt PET scan. MRI pelvis/lumbar spine due to ongoing pain: Negative Decided on home with hospice. Daughter is a hospice nurse. (3) Fever: Fevers through evening 07/14, ?infection vs malignancy vs other. Unclear etiology. procal trended down on repeat repeat urine/blood cultures negative had been on continuous meropenem since admission, prior cipro outpatient for enterobacter cloacae but no blood cultures between CXR w/ atelectasis, continue incentive spirometer Procal down to 0.73 (1.5 on admit, 0.84 on repeat) No more fever spikes (4) Encephalopathy: Resolved, alert/oriented x3 at present Repeat cultures remain NGTD, procal decreased, VBG w/o sign CO2 retention ?if from fentanyl w/ heating pad/multiple IV/PO doses and improved since changes made CXR w/ atelectasis, KUB w/o obstruction STABLE ON EXAM AT PRESENT (5) Anemia requiring transfusions: hgb 6.7 on admit, INR 4.5 s/p 2u PRBC and 8.3 on repeat Coumadin has been resumed Fecal occult NEGATIVE Lovenox SQ to bridge given subtherapeutic INR. Today INR 2.1. Will continue Lovenox bridge for another day. No hypoxia at present, but slightly volume overloaded and will give lasix p.o. x 1 dose and monitor response Hgb 9.2 INR elevated at 3.3. Lovenox bridge discontinued on 07/18. Continue Coumadin. No active bleeding (6) Complicated urinary tract infection: Patient with recent UTI -culture from 07/04/22 POSITIVE for Enterobacter cloacae. Prior urine culture from 06/22/22 POSITIVE for Enterobacter faecalis. Patient has been on Ciprofloxacin with last dose 07/12/22. CT of the abdomen with [id number] left hydroureteronephrosis with urothelial thickening and enhancement in the left ureter as well as heterogenous enhancement of the left kidney with mild surrounding infiltration. UA on admit did not strongly support infection at time of presentation, HOWEVER had been on Cipro by Dr Coon and could have been falsely negative Repeat culture without growth Urology on consult, signed off Procal almost normal Discontinued abx at present (7) Right leg DVT: Patient with RLE DVT diagnosed 03/2022 at [facility]. He was previously being treated with Eliquis which was discontinued secondary to cost. He was most recently started on Coumadin - thought to be at continued risk for VTE given h/o malignancy and decreased mobility due to ongoing back pain. INR supratherapeutic at 4.6. Patient denies obvious source of blood loss - melena/hematochezia or hematuria. He does have 3+ blood in UA. Fecal occult NEGATIVE Has been on Cipro - possibly contributing to supratherapeutic INR on presentation Continue Coumadin (8) Hypertension: Patient with lower blood pressures in the ER , stable and improved at present since initiation of metoprolol 12.5mg BID for continued sinus tachycardia during admission lisinorpil resumed and continued (9) Acute hyponatremia: Stable , etoh use in remote past Monitor (10) KEV (acute kidney injury): Resolved w/ IVF Renal dose meds/avoid nephrotoxins as able monitor bmp Plan Patient and family decided on home with hospice. Arrangements made. Total Time Total Time Spent Total Time Spent (In Minutes): 35 Discharge Plan Discharge Items Patient Disposition: Hospice - Home Reason For Visit: ANEMIA, ACUTE ON CHRONIC BACK PAIN Discharge Diagnosis: Back pain most likely secondary to lumbar radiculopathy versus cancer recurrence Fever of unknown etiology, could be related to cancer Anemia requiring blood transfusion Protein calorie malnutrition Activity: Resume your previous activity Non-emergency contact: Primary Care Provider Call non-emergency contact if: you have any medication questions and your symptoms worsen Follow-up/Referrals: Janice Zarco DO [Primary Care Provider] - Diet: Regular Addtl Attending Provider Instructions: Advised to note that you are being discharged to home with hospice Pending Studies at Discharge: No Stand-Alone Forms: [facility] Medications and DC Order Prescriptions: New hydromorphone [Dilaudid] 2 mg Tablet 6 mg PO Q4H PRN (Reason: pain) Qty: 84 0RF pantoprazole 40 mg Tablet,Delayed Release (Dr/Ec) 40 mg PO QAM Qty: 30 0RF metoprolol tartrate 25 mg Tablet 25 mg PO BID Qty: 60 0RF fentanyl 100 mcg/hr patch 72 hour 1 patch transdermal Q72H Qty: 5 0RF Continued cyanocobalamin (vitamin B-12) [Vitamin B-12] 1,000 mcg Tablet 1,000 mcg PO DAILY lisinopril 10 mg tablet 10 mg PO DAILY docusate sodium [Stool Softener] 100 mg Tablet 100 mg PO QID PRN (Reason: Constipation) warfarin 5 mg Tablet 5 mg PO DAILY@1600 Qty: 30 0RF diclofenac sodium [Voltaren Arthritis Pain] 1 % Gel 4 g EXT QID Qty: 100 0RF gabapentin 300 mg Capsule 300 mg PO TID Qty: 90 0RF sennosides [Senokot] 8.6 mg Tablet 17.2 mg PO QAM Qty: 30 0RF polyethylene glycol 3350 [Miralax] 17 gram Powder In Packet 17 g PO BID Qty: 60 0RF naloxone [Narcan] 4 mg/actuation spray,non-aerosol 1 spray intranasal Q3M Qty: 2 0RF baclofen 10 mg Tablet 5 mg PO BID Qty: 60 0RF oxycodone [OxyContin] 10 mg tablet,oral only,ext.rel.12 hr 10 mg PO BID Qty: 60 0RF Discontinued ciprofloxacin HCl 500 mg tablet 500 mg PO Q12 Rx Instructions: ordered 07/04/22 take for 7 days oxycodone 5 mg tablet 5 mg PO Q4 PRN (Reason: severe pain (scale score 7-10)) Rx Instructions: for 7 days ordered 07/07/22 Discharge Orders: Discharge Order (Routine); Ordered 07/20/22 Ordered By: Flaca Iniguez Admission Data Admit Date/Time: 07/11/22 20:41 Attending Provider: Flaca Iniguez Admit Provider: Emelia Calderón Primary Care Provider: Janice Zarco Other Providers: Emelia Calderón ; Vishnu Vigil ; Mike Gee ; Thalia Guevara Other Interventions: Discharge Summary Assessment (RN) Last Done: 07/20/22 13:59 Coding Level of Care Code 89586 INP/OBS DISCH >30 MIN Diagnoses Back pain M54.9 Urothelial carcinoma of bladder C67.9 Fever R50.9 Encephalopathy G93.40 Anemia requiring transfusions D64.9 Complicated urinary tract infection N39.0 Right leg DVT I82.401 Hypertension I10 Acute hyponatremia E87.1 KEV (acute kidney injury) N17.9
[2022-07-20] MEDS: WARFARIN SOD 5 MG TAB PO SCH (15:22)
[2022-07-20] MEDS: HYDROmorphone HCL 2 MG TAB PO PRN (17:26)
== END 2022-07-20 18:24 | disposition hospice, home (50) | DRG 686 ==
LOC: ED 15:28 → SUATTDRO 20:41 → 2W 20:41